=== PATIENT | male | born 1945 | race Caucasian/White ===

== ENCOUNTER 2017-10-03 20:01 | Inpatient (IN) ==
[2017-10-03 20:27] LABS: Microscopic, Urine URINE MICROSCOPIC (MICROSCOPIC)
[2017-10-03 20:28] LABS: Appearance,Urine CLEAR (Clear); Bilirubin,Urine Negative (Negative); Blood, Urine 3+ (Negative); Color,Urine YELLOW (Yellow); Glucose,Urine (UA) Negative (Negative); Ketones,Urine Negative (Negative); Leukocyte Esterase,Urine Negative (Negative); Protein,Urine Negative (Negative); Urobilinogen,Urine 0.2 EU/dl (0.2)
[2017-10-03 20:31] LABS: Basophils % 0.3 % (0.1-2.0); Eosinophils # 0.2 K/mm3 (0.0-0.4); Eosinophils % 2.2 % (0.1-12.0); Hematocrit 39.8 % (42.0-52.0); Hemoglobin 12.6 g/dL (14.1-18.0); Lymphocytes # 1.5 K/mm3 (0.7-4.5); Lymphocytes % 18.5 K/mm3 (10-50); Mean Corpuscular HGB Conc 31.5 g/dL (31.8-35.4); Mean Corpuscular Hemoglobin 31.1 pg (27.0-31.2); Mean Corpuscular Volume 98.7 fl (80-94); Mean Platelet Volume 7.2 fl (7.4-10.4); Monocytes # 0.3 K/mm3 (0.1-1.0); Monocytes % 3.8 % (1.7-9.3); Neutrophils # 6.2 K/mm3 (1.8-7.8); Neutrophils % 75.2 % (37.0-80.0); Platelet Count 260 K/mm3 (142-424); Red Blood Count 4.04 M/mm3 (4.60-6.20); Red Cell Distribution Width 13.8 % (11.5-17.5); White Blood Count 8.2 K/mm3 (4.8-10.8)
[2017-10-03 20:42] LABS: Albumin Level 3.4 gm/dL (3.4-5.0); Albumin/Globulin Ratio 1.1 (1.1-1.8); Anion Gap 13.8 mEq/L (5-15); Bilirubin,Total 0.3 mg/dL (0.2-1.0); Calcium 7.8 mg/dL (8.5-10.1); Globulin 3.1 gm/dl (1.3-3.2); Potassium 3.8 mmoL/L (3.5-5.1); Total Protein,Serum 6.5 gm/dL (6.4-8.2)
[2017-10-03 20:44] LABS: Amphetamine/Metha Screen,Urine Negative ng/mL (<1000); Barbiturates Screen,Urine Negative ng/mL (<200); Benzodiazepines Screen,Urine Negative ng/mL (<200); Cannabinoid Screen,Urine Negative ng/mL (<50); Cocaine Screen,Urine Negative ng/mL (<300); Methadone Screen,Urine Negative ng/mL (<300); Opiate Screen,Urine Negative ng/mL (<300); Phencyclidine Screen,Urine Negative ng/mL (<25)
[2017-10-03 20:46] LABS: Bacteria,Urine Trace /lpf
[2017-10-03 21:27] LABS: INR 0.93 (0.9-1.1); Prothrombin Time 9.6 seconds (9.4-11.8)
--- NOTE | 2017-10-03 21:47 | Emergency Department Note ---
ED Disposition Clinical Impression: RBBB (right bundle branch block with left anterior fascicular block), Hyponatremia Hip fracture Qualifiers: Encounter type: initial encounter Fracture type: closed Laterality: right Qualified Code(s): S72.001A - Fracture of unspecified part of neck of right femur, initial encounter for closed fracture Alcohol intoxication Qualifiers: Complication of substance-induced condition: uncomplicated Qualified Code(s): F10.920 - Alcohol use, unspecified with intoxication, uncomplicated Disposition: Admitted As Inpatient Condition on Discharge: Good - Critical Care Critical Care Time: No Attestation: On 10/03/17, the high probability of a clinically significant, sudden or life threatening deterioration of the following system(s) required my full and direct attention, intervention and personal management. The time I documented below is in addition to time spent performing reported procedures but includes the following listed in this critical care notation. Medical Decision Making - Medical Records Medical records reviewed: Yes: I reviewed the patient's medical records. - [place] Inquiry Pt receiving controlled substance: No Vital Signs: 10/03/17 20:01 10/03/17 21:18 10/03/17 21:41 Temperature 98.5 F Temperature Source Oral Pulse Rate [Right Radial] 75 76 70 Respiratory Rate 20 20 18 Blood Pressure [Right Arm] 132/82 125/80 123/82 Blood Pressure Mean [Right Arm] 98 95 95 Blood Pressure Source [Right Arm] Automatic Cuff Automatic Cuff Blood Pressure Position [Right Arm] Sitting Sitting 02 Sat by Pulse Oximetry 98 95 97 Oxygen Delivery Method Room Air - Lab Data Lab results reviewed: Yes: I reviewed the patient's lab results. Lab Results 10/03/17 20:18: PT 9.6, INR 0.93 10/03/17 20:19: WBC 8.2, RBC 4.04 L, Hgb 12.6 L, Hct 39.8 L, MCV 98.7 H, MCH 31.1, MCHC 31.5 L, RDW 13.8, Plt Count 260, MPV 7.2 L, Neut % (Auto) 75.2, Lymph % (Auto) 18.5, [place] % (Auto) 3.8, Eos % (Auto) 2.2, Baso % (Auto) 0.3, Neut # (Auto) 6.2, Lymph # (Auto) 1.5, [place] # (Auto) 0.3, Eos # (Auto) 0.2, Baso # (Auto) 0.0 10/03/17 20:19: Sodium 128 L, Potassium 3.8, Chloride 96 L, Carbon Dioxide 22, Anion Gap 13.8, BUN 6 L, Creatinine 0.64 L, Estimated Creat Clear 60, Estimated GFR 122, Est GFR ( Amer) 148, Glucose 105, Calcium 7.8 L, Total Bilirubin 0.3, AST 29, ALT 30, Alkaline Phosphatase 95, Total Protein 6.5, Albumin 3.4, Globulin 3.1, Albumin/Globulin Ratio 1.1, Plasma/Serum Alcohol 205 H 10/03/17 20:19: Urine Opiates Screen Negative, Urine Methadone Screen Negative, Ur Barbituates Screen Negative, Ur Phencyclidine Scrn Negative, Ur Amphetamines Screen Negative, U Benzodiazepines Scrn Negative, Urine Cocaine Screen Negative , U Marijuana (THC) Screen Negative 10/03/17 20:23: Urine Color Yellow, Urine Appearance Clear, Urine pH 6.0, Ur Specific [place] 1.010, Urine Protein Negative, Urine Glucose (UA) Negative, Urine Ketones Negative, Urine Blood 3+, Urine Nitrate Negative, Urine Bilirubin Negative, Urine Urobilinogen 0.2, Ur Leukocyte Esterase Negative, Urine RBC 10- 20, Urine Bacteria Trace Result diagrams: 10/03/17 20:19 10/03/17 20:19 Orders (Tests/Meds): ED MEDICATIONS Generic Name Dose Route Start Last Admin Trade Name Freq PRN Reason Stop Dose Admin Multivitamins 10 ml/ Thiamine 1,015 mls @ 150 mls/hr 10/03/17 22:00 HCl 100 mg/ Magnesium Sulfate IV 10/04/17 04:45 2 gm/ Lactated Ringer's .[id number] LACHELLE Multivitamins 10 ml/ Thiamine 1,015 mls @ 125 mls/hr 10/04/17 09:00 HCl 100 mg/ Magnesium Sulfate IV 11/03/17 08:59 2 gm/ Lactated Ringer's DAILY LACHELLE Discontinued Medications Generic Name Dose Route Start Last Admin Trade Name Freq PRN Reason Stop Dose Admin Folic Acid 1 mg 10/03/17 21:54 Folic Acid 1mg Tablet PO 10/03/17 21:55 ONCE ONE Sodium Chloride 1,000 mls @ 999 mls/hr 10/03/17 20:15 10/03/17 20:25 Sod Chlor 0.9% 1000ml Bag IV 10/03/17 21:15 999 mls/hr .Q1H1M LACHELLE Administration Morphine Sulfate 4 mg 10/03/17 21:50 10/03/17 21:52 Morphine 4mg/Ml Syringe IV 10/03/17 21:51 4 mg ONCE ONE Administration Ondansetron HCl 4 mg 10/03/17 21:50 10/03/17 21:52 Zofran 4mg/2ml Vial IV 10/03/17 21:51 4 mg ONCE ONE Administration ORDERS Category Date Time Status CT cervical spine wo con Stat Cat Scan 10/03/17 20:[address] head/brain wo con Stat Cat Scan 10/03/17 20:08 Taken Femur XR right 2 views [XR femur RT 2V] Stat Exams 10/03/17 21:50 Ordered XR chest AP Stat Exams 10/03/17 20:09 Taken XR hip RT 2-3V w/pelvis Stat Exams 10/03/17 20:09 Taken - Radiology Data #1 Image(s): Chest, Pelvis Image Reviewed: Yes I reviewed the patient's radiology image Preliminary Findings: Abnormal (hip fx /copd) - CT Data CT Scan: Head, C-Spine Time Received: 21:[address] Reviewed: Yes: I have viewed the radiologist's interpretation Preliminary Findings: Abnormal, No Fracture Seen - ECG Data Tracing #1 I reviewed this ECG and interpreted as documented below: Normal Sinus Rhythm: Yes Ischemic changes: non-specific ST-T wave changes Conduction abnormalities present: LAFB, RBBB ECG compared to prior tracings: there are no prior tracings available for comparison - Physician Consults Physician Consulted: aristeo Reason -: Pt condition Additional Consult: debbi Reason -: Admission Fall HPI - General Chief Complaint: Fall Stated Complaint: FALL Time Seen by Provider: 10/03/17 21:42 Mode of Arrival: EMS Source of Information: Patient, Relative, EMS, Medical Record Limitations: No Limitations Description of Symptoms (Recalled from ER Triage Doc. by RN): RIGHT HIP PAIN AFTER FALL WHILE WALKING. -LOC, -NECK OR BACK PAIN. +ETOH - History of Present Illness HPI Narrative: pt with trip injury and fall with injury rt hip - pt with etoh abuse - he denied any medical problems - MD complaint: fall Onset (ago): hour(s) Fall from: standing Place fall occurred: home Loss of consciousness: none Symptoms prior to fall: none Context: alcohol use Location of injury: head, neck Location of injury - extremities: Right: thigh Severity: moderate Associated symptoms (after fall): unable to walk - Related Data Home Medications Medication Instructions Recorded Confirmed No Known Home Medications 10/03/17 10/03/17 Allergies Allergy/AdvReac Type Severity Reaction Status Date / Time No Known Allergies Allergy Verified 10/03/17 20:08 [facility] History I have reviewed the patient's past medical history: Yes Medical History: Denies:: Cancer, Diabetes Mellitus Type 1, Diabetes Mellitus Type 2, MRSA Amputation: No Fractures: No - Social History Smoking Status: Current every day smoker Alcohol Intake: current Alcohol Intake Frequency:: 3 or more drinks per day - Psychiatric History Expresses thoughts of harming self/others: None Suicide Plan Description: No Plan ROS Obtained: Yes All systems reviewed & no additional complaints - Constitutional Constitutional: Denies fever(s) - Eyes Eyes: Denies change in vision - ENT Ears, Nose, Mouth, and Throat: Denies sore throat - Cardiovascular Cardiovascular: Denies chest pain at rest - Respiratory Respiratory: No cough - Gastrointestinal Gastrointestingal: Denies: abdominal pain - Genitourinary Male Genitourinary: Denies hematuria - Musculoskeletal Musculoskeletal: Reports joint pain, Reports limited range of motion - Integumentary/Breasts Skin/Breast: Denies rash - Neurologic Neurologic: Denies headache(s), Denies seizure-like activity Physical Exam - General General appearance: in no apparent distress - Head Head exam: normocephalic - Eye Eye exam: Present: PERRL, EOMI - ENT ENT exam: Present: mucous membranes dry - Neck Neck exam: Present: trachea midline - Respiratory Respiratory exam: Present: prolonged expiratory phase. Absent: respiratory distress - Cardiovascular Cardiovascular exam: Present: regular rate, systolic murmur, +S4 - Abdominal Exam Abdominal exam: Present: soft - Expanded Lower Extremity Exam Right Hip/Pelvis exam: Present: tenderness, pelvis stable, external rotation, shortening of leg, pain on hip/pelvis palpation, hip pain on leg movement - Neurological Exam Neurological exam: Present: alert, oriented X3, CN II-XII intact - Psychiatric Psychiatric exam: Present: normal affect - Skin Skin exam: Absent: rash
[2017-10-04 04:22] LABS: Basophils % 0.2 % (0.1-2.0); Eosinophils # 0.1 K/mm3 (0.0-0.4); Eosinophils % 0.8 % (0.1-12.0); Hematocrit 35.3 % (42.0-52.0); Lymphocytes # 0.9 K/mm3 (0.7-4.5); Lymphocytes % 11.7 K/mm3 (10-50); Mean Corpuscular HGB Conc 31.9 g/dL (31.8-35.4); Mean Corpuscular Hemoglobin 31.8 pg (27.0-31.2); Mean Corpuscular Volume 99.5 fl (80-94); Mean Platelet Volume 7.1 fl (7.4-10.4); Monocytes # 0.3 K/mm3 (0.1-1.0); Monocytes % 4.1 % (1.7-9.3); Neutrophils # 6.5 K/mm3 (1.8-7.8); Neutrophils % 83.2 % (37.0-80.0); Platelet Count 190 K/mm3 (142-424); Red Blood Count 3.55 M/mm3 (4.60-6.20); Red Cell Distribution Width 13.7 % (11.5-17.5); White Blood Count 7.8 K/mm3 (4.8-10.8)
[2017-10-04 04:27] LABS: Anion Gap 10.9 mEq/L (5-15); Calcium 7.6 mg/dL (8.5-10.1); Phosphorous 2.9 mg/dL (2.4-4.9); Potassium 3.9 mmoL/L (3.5-5.1)
[2017-10-04 04:43] LABS: Hemoglobin 11.4 g/dL (14.1-18.0)
--- NOTE | 2017-10-04 07:42 | Pharmacy Consult Notes ---
[facility] Pharmacy VTE Monitoring - Patient Demographics Admission date: 10/03/17 Report Date: 10/04/17 Time: 07:42 Allergies/Adverse Reactions: Patient Allergies No Known Allergies Allergy (Verified 10/03/17 20:08) Height: 1.8 m Weight: 65.884 kg Patient Problems: Current Active Problems Hip fracture (Acute) RBBB (right bundle branch block with left anterior fascicular block) (Acute) Alcohol intoxication (Acute) Hyponatremia (Acute) - VTE Risk Labs: VTE Related Lab Results Hgb 11.4 g/dL (14.1-18.0) L 10/04/17 04:10 Hct 35.3 % (42.0-52.0) L 10/04/17 04:10 Plt Count 190 K/mm3 (142-424) D 10/04/17 04:10 PT 9.6 seconds (9.4-11.8) 10/03/17 20:18 INR 0.93 (0.9-1.1) 10/03/17 20:18 BUN 4 mg/dL (7-18) L D 10/04/17 04:10 Creatinine 0.52 mg/dL (0.70-1.30) L 10/04/17 04:10 Estimated Creat Clear 60 mL/min (0-300) 10/04/17 04:10 Was VTE Risk Assessment Performed: Yes VTE Score: 6 VTE Risk Level: Moderate Risk - Prophylaxis VTE Prophylaxis Ordered?: Yes Types of VTE Prophylaxis: TEDS Knee High Location of Applied Device: Bilateral Lower Extremeties - VTE Diagnosis Confirmed Treatment or plan recommended: Continue Current Treatment
--- NOTE | 2017-10-04 07:57 | Consult Report ---
History of Present Illness Consult date: 10/04/17 Requesting physician: Crystal Meeks Consult reason: pre-op evaluation Chief complaint: Hip Fx, Abnormal EKG (RBBB, LAFB) Additional Medical History:: 1. History of bleeding ulcer secondary to ETOH use A. s/p surgery with appendectomy, cholecystectomy, partial pancreatectomy and partial intestine removal 2. Tobacco use, for 65 yrs 3. Daily ETOH use of about 12 beers daily History of present illness: 72-year-old white male admitted after tripping and falling with pain in his hip. Patient found to have hip fracture and admitted for further evaluation and treatment. Patient denies any history of cardiac issues including myocardial infarction, syncope or near syncope. EKG shows sinus rhythm with right bundle branch block and left anterior hemiblock. Cardiology consulted for preop evaluation. Patient does have extensive history of tobacco and alcohol use. He denies history of diabetes, hypertension or hyperlipidemia. His father had heart disease in his late 70s early 80s. Patient relates recent cataract surgery without complications. [facility] History Medical History: Denies:: Cancer, Diabetes Mellitus Type 1, Diabetes Mellitus Type 2, MRSA Other Medical History: Reports: Cataracts, Sinus Problems Other Surgeries: Yes: Other (sx to pancreas, intestines) Amputation: No Fractures: No - *Social History Educational Level: Completed High School Smoking Status: Current every day smoker Tobacco Type: cigarettes Alcohol Intake: current Alcohol Intake Frequency:: 3 or more drinks per day Occupational Status: retired Housing: house Household Members: none - Psychiatric History Expresses thoughts of harming self/others: None Suicide Plan Description: No Plan *Family Hx:: Coronary Artery Disease, Heart Attack, Hyperlipidemia, Hypertension , Kidney Disease Meds Home Medications Medication Instructions Recorded Confirmed Type No Known Home Medications 10/03/17 10/03/17 History Allergies Allergy/AdvReac Type Severity Reaction Status Date / Time No Known Allergies Allergy Verified 10/03/17 20:08 Review of Systems - *Cardiovascular Denies chest pain, Denies shortness of breath with activity - *Respiratory Denies shortness of breath with activity - *Gastrointestinal Denies abdominal pain, Denies loose stools, Denies black, tarry stools - *Genitourinary Denies difficulty urinating - *Musculoskeletal Denies abnormal walking - *Neurologic Denies headache(s), Denies seizure-like activity Exam Vital signs and Labs for Last 24 Hours: Temp Pulse Resp BP Pulse Ox 98.2 F 71 20 135/71 94 L 10/04/17 07:48 10/04/17 07:48 10/04/17 07:48 10/04/17 07:48 10/04/17 07:48 Laboratory Results - last 24 hr 10/03/17 20:18: PT 9.6, INR 0.93 10/03/17 20:19: WBC 8.2, RBC 4.04 L, Hgb 12.6 L, Hct 39.8 L, MCV 98.7 H, MCH 31.1, MCHC 31.5 L, RDW 13.8, Plt Count 260, MPV 7.2 L, Neut % (Auto) 75.2, Lymph % (Auto) 18.5, [place] % (Auto) 3.8, Eos % (Auto) 2.2, Baso % (Auto) 0.3, Neut # (Auto) 6.2, Lymph # (Auto) 1.5, [place] # (Auto) 0.3, Eos # (Auto) 0.2, Baso # (Auto) 0.0 10/03/17 20:19: Sodium 128 L, Potassium 3.8, Chloride 96 L, Carbon Dioxide 22, Anion Gap 13.8, BUN 6 L, Creatinine 0.64 L, Estimated Creat Clear 60, Estimated GFR 122, Est GFR ( Amer) 148, Glucose 105, Calcium 7.8 L, Total Bilirubin 0.3, AST 29, ALT 30, Alkaline Phosphatase 95, Total Protein 6.5, Albumin 3.4, Globulin 3.1, Albumin/Globulin Ratio 1.1, Plasma/Serum Alcohol 205 H 10/03/17 20:19: Urine Opiates Screen Negative, Urine Methadone Screen Negative, Ur Barbituates Screen Negative, Ur Phencyclidine Scrn Negative, Ur Amphetamines Screen Negative, U Benzodiazepines Scrn Negative, Urine Cocaine Screen Negative , U Marijuana (THC) Screen Negative 10/03/17 20:23: Urine Color Yellow, Urine Appearance Clear, Urine pH 6.0, Ur Specific [place] 1.010, Urine Protein Negative, Urine Glucose (UA) Negative, Urine Ketones Negative, Urine Blood 3+, Urine Nitrate Negative, Urine Bilirubin Negative, Urine Urobilinogen 0.2, Ur Leukocyte Esterase Negative, Urine RBC 10- 20, Urine Bacteria Trace 10/03/17 22:40: Troponin I < 0.02 10/04/17 01:00: Troponin I < 0.02 10/04/17 04:10: Troponin I < 0.02 10/04/17 04:10: WBC 7.8, RBC 3.55 L, Hgb 11.4 L, Hct 35.3 L, MCV 99.5 H, MCH 31.8 H, MCHC 31.9, RDW 13.7, Plt Count 190 D, MPV 7.1 L, Neut % (Auto) 83.2 H, Lymph % (Auto) 11.7, [place] % (Auto) 4.1, Eos % (Auto) 0.8, Baso % (Auto) 0.2, Neut # (Auto) 6.5, Lymph # (Auto) 0.9, [place] # (Auto) 0.3, Eos # (Auto) 0.1, Baso # (Auto) 0.0 10/04/17 04:10: Sodium 132 L, Potassium 3.9, Chloride 100, Carbon Dioxide 25, Anion Gap 10.9, BUN 4 L D, Creatinine 0.52 L, Estimated Creat Clear 60, Estimated GFR 155, Est GFR ( Amer) 188 D, Glucose 104, Calcium 7.6 L, Phosphorus 2.9, Magnesium 2.1 I & O for Last 24 hours: Intake & Output 10/01/17 10/02/17 10/03/17 10/04/17 11:59 11:59 11:59 11:59 Intake Total 1000 / 1000 Output Total 2700 / 2700 Balance -1700 / -1700 Weight 145 lb 4 oz - *Routine Neck Exam Absent: JVD, carotid bruit - *Routine Respiratory Exam Present: CTA bilaterally - *Routine Cardiovascular Exam Present: RRR. Absent: murmur Comments: Distant heart sounds due to chest shape. - *Routine Abdominal Exam Absent: tenderness - *Routine Extremities Exam Absent: edema - *Routine Neurological Exam Present: alert, oriented X3, moving all extremities Assessment and Plan (1) Hip fracture Current visit: Yes Status: Acute Qualifiers: Encounter type: initial encounter Fracture type: closed Laterality: right Qualified Code(s): S72.001A - Fracture of unspecified part of neck of right femur, initial encounter for closed fracture Category: Medical Code(s): S72.009A - Fracture of unspecified part of neck of unspecified femur, initial encounter for closed fracture (2) RBBB (right bundle branch block with left anterior fascicular block) Current visit: Yes Status: Acute Category: Medical Code(s): I45.2 - Bifascicular block (3) Tobacco use disorder, continuous Current visit: Yes Status: Acute Category: Medical Code(s): F17.209 - Nicotine dependence, unspecified, with unspecified nicotine-induced disorders (4) Alcohol use disorder Current visit: Yes Status: Acute Category: Medical (5) Alcohol intoxication Current visit: Yes Status: Acute Qualifiers: Complication of substance-induced condition: uncomplicated Qualified Code(s ): F10.920 - Alcohol use, unspecified with intoxication, uncomplicated Category: Medical Code(s): F10.929 - Alcohol use, unspecified with intoxication, unspecified (6) Hyponatremia Current visit: Yes Status: Acute Category: Medical Code(s): E87.1 - Hypo- osmolality and hyponatremia - Assessment and plan all Dx Assessment and Plan for all problems:: 1. Echocardiogram shows preserved ejection fraction at greater than 50%. 2. Patient is a low and acceptable risk to proceed with surgery for hip fracture. 3. Would recommend perioperative aspirin, low-dose beta-samantha and proton pump inhibitor due to history of peptic ulcer disease. 4. Discussed with Dr. Pendleton.
--- NOTE | 2017-10-04 08:45 | History & Physical Report ---
*Admission Date: 10/03/17 *Chief complaint: Right hip pain *History of present illness: Mr. James is a 72 year old male with a long-standing history of tobacco and alcohol usage who presented to [facility] emergency room after a fall resulting in right hip pain. He states he does not recall why he fell but may have tripped. He denies chest pain, shortness of breath, dizziness and heart palpitations. [place]. Patient has had no previous cardiac issues and has not seen a physician in a long while. He takes only a baby aspirin daily. Emergency room evaluation revealed a right hip fracture. EKG was abnormal with a right bundle branch block and a left anterior hemiblock. He was admitted for further evaluation and treatment with an orthopedic consult and cardiac consult for clearance for surgery. This a.m. his right hip hurts with movement and is otherwise sore. He denies chest pain and shortness of breath. [facility] History Medical History: Reports:: Gastrointestinal Bleed Denies:: Cancer, Diabetes Mellitus Type 1, Diabetes Mellitus Type 2, MRSA Other Medical History: Reports: Cataracts, Sinus Problems Other Surgeries: Yes: Other Amputation: No Fractures: No Comment: Abdominal surgery for a perforated ulcer years ago; right shoulder rotator cuff repair - *Social History Educational Level: Completed High School Smoking Status: Current every day smoker Tobacco Type: cigarettes # Packs/Day (cigarettes): 2 Alcohol Intake: current Alcohol Intake Frequency:: 3 or more drinks per day Occupational Status: retired Housing: house Household Members: none - Psychiatric History Expresses thoughts of harming self/others: None Suicide Plan Description: No Plan *Family Hx:: Coronary Artery Disease, Heart Attack, Hyperlipidemia, Hypertension , Kidney Disease Review of Systems - Constitutional Denies body ache(s), Denies chills, Denies fever(s), Denies weakness - ENT Denies dizziness, Denies ear pain, Denies headache(s), Denies sore throat - *Cardiovascular Denies chest pain, Denies shortness of breath, Denies leg swelling - *Respiratory Reports cough, Denies chest congestion, Denies shortness of breath - *Gastrointestinal Denies abdominal pain, Denies change in bowel habits, Denies change in stools, Denies constipation, Denies heartburn, Denies heartburn, Denies vomiting blood, Denies nausea, Denies vomiting - *Genitourinary Denies difficulty urinating - *Musculoskeletal Reports joint pain, Denies abnormal walking, Denies back pain, Denies body aches Comments: Right hip - *Neurologic Denies abnormal walking, Denies headache(s), Denies seizure-like activity, Denies fainting, Denies dizziness Meds Home Medications Medication Instructions Recorded Confirmed Type No Known Home Medications 10/03/17 10/03/17 History Allergies Allergy/AdvReac Type Severity Reaction Status Date / Time No Known Allergies Allergy Verified 10/03/17 20:08 Exam Vital signs and Labs for Last 24 Hours: Temp Pulse Resp BP Pulse Ox 98.2 F 71 20 135/71 94 L 10/04/17 07:48 10/04/17 07:48 10/04/17 07:48 10/04/17 07:48 10/04/17 07:48 Laboratory Results - last 24 hr 10/03/17 20:18: PT 9.6, INR 0.93 10/03/17 20:19: WBC 8.2, RBC 4.04 L, Hgb 12.6 L, Hct 39.8 L, MCV 98.7 H, MCH 31.1, MCHC 31.5 L, RDW 13.8, Plt Count 260, MPV 7.2 L, Neut % (Auto) 75.2, Lymph % (Auto) 18.5, [place] % (Auto) 3.8, Eos % (Auto) 2.2, Baso % (Auto) 0.3, Neut # (Auto) 6.2, Lymph # (Auto) 1.5, [place] # (Auto) 0.3, Eos # (Auto) 0.2, Baso # (Auto) 0.0 10/03/17 20:19: Sodium 128 L, Potassium 3.8, Chloride 96 L, Carbon Dioxide 22, Anion Gap 13.8, BUN 6 L, Creatinine 0.64 L, Estimated Creat Clear 60, Estimated GFR 122, Est GFR ( Amer) 148, Glucose 105, Calcium 7.8 L, Total Bilirubin 0.3, AST 29, ALT 30, Alkaline Phosphatase 95, Total Protein 6.5, Albumin 3.4, Globulin 3.1, Albumin/Globulin Ratio 1.1, Plasma/Serum Alcohol 205 H 10/03/17 20:19: Urine Opiates Screen Negative, Urine Methadone Screen Negative, Ur Barbituates Screen Negative, Ur Phencyclidine Scrn Negative, Ur Amphetamines Screen Negative, U Benzodiazepines Scrn Negative, Urine Cocaine Screen Negative , U Marijuana (THC) Screen Negative 10/03/17 20:23: Urine Color Yellow, Urine Appearance Clear, Urine pH 6.0, Ur Specific [place] 1.010, Urine Protein Negative, Urine Glucose (UA) Negative, Urine Ketones Negative, Urine Blood 3+, Urine Nitrate Negative, Urine Bilirubin Negative, Urine Urobilinogen 0.2, Ur Leukocyte Esterase Negative, Urine RBC 10- 20, Urine Bacteria Trace 10/03/17 22:40: Troponin I < 0.02 10/04/17 01:00: Troponin I < 0.02 10/04/17 04:10: Troponin I < 0.02 10/04/17 04:10: WBC 7.8, RBC 3.55 L, Hgb 11.4 L, Hct 35.3 L, MCV 99.5 H, MCH 31.8 H, MCHC 31.9, RDW 13.7, Plt Count 190 D, MPV 7.1 L, Neut % (Auto) 83.2 H, Lymph % (Auto) 11.7, [place] % (Auto) 4.1, Eos % (Auto) 0.8, Baso % (Auto) 0.2, Neut # (Auto) 6.5, Lymph # (Auto) 0.9, [place] # (Auto) 0.3, Eos # (Auto) 0.1, Baso # (Auto) 0.0 10/04/17 04:10: Sodium 132 L, Potassium 3.9, Chloride 100, Carbon Dioxide 25, Anion Gap 10.9, BUN 4 L D, Creatinine 0.52 L, Estimated Creat Clear 60, Estimated GFR 155, Est GFR ( Amer) 188 D, Glucose 104, Calcium 7.6 L, Phosphorus 2.9, Magnesium 2.1 I & O for Last 24 hours: Intake & Output 10/01/17 10/02/17 10/03/17 10/04/17 11:59 11:59 11:59 11:59 Intake Total 1000 / 1000 Output Total 2700 / 2700 Balance -1700 / -1700 Weight 145 lb 4 oz Radiology Reports for the Last 24 Hours: CT of the head 10/03/2017 IMPRESSION: No acute intracranial findings CT of the cervical spine 10/03/2017 with no fracture noted Chest x-ray 10/03/2017 IMPRESSION: Limited exam with increased density in the left apex with volume loss nonspecific. No definite acute finding. Follow-up recommended without artifact. Right hip x-ray 10/03/2017 IMPRESSION: Comminuted mildly displaced intertrochanteric fracture of the right hip Right femur x-ray 10/03/2017 IMPRESSION: Comminuted mildly displaced right intertrochanteric fracture of the femur - Constitutional no acute distress Comments: Lying in bed and appears comfortable. Friend at bedside - *Routine HEENT Exam Head: Present: normocephalic, atraumatic Eye: Present: PERRL, normal accommodation. Absent: conjunctival icterus, conjunctivae pink - *Routine Neck Exam Present: supple, full ROM, trachea midline. Absent: carotid bruit, lymphadenopathy, thyromegaly, tenderness Comments: Bearded - *Routine Respiratory Exam Present: CTA bilaterally (Anteriorly and posteriorly with diminished breath sounds posteriorly) - *Routine Cardiovascular Exam Present: RRR. Absent: murmur - *Routine Abdominal Exam Present: soft, normoactive bowel sounds, surgical scars. Absent: tenderness, distended, guarding - *Routine Extremities Exam Absent: edema, calf tenderness Comments: Right foot externally rotated. He can slightly reposition. - *Routine Neurological Exam Present: alert, oriented X3 H&P: Result - Labs Labs: Short CBC 10/03/17 10/04/17 Range/Units 20:19 04:10 WBC 8.2 7.8 (4.8-10.8) K/mm3 Hgb 12.6 L 11.4 L (14.1-18.0) g/dL Hct 39.8 L 35.3 L (42.0-52.0) % Plt Count 260 190 D (142-424) K/mm3 BMP 10/03/17 10/04/17 20:19 04:10 Sodium 128 L 132 L Potassium 3.8 3.9 Chloride 96 L 100 Carbon Dioxide 22 25 BUN 6 L 4 L D Creatinine 0.64 L 0.52 L Glucose 105 104 Calcium 7.8 L 7.6 L Cardiac Enzymes 10/03/17 10/04/17 10/04/17 Range/Units 22:40 01:00 04:10 Troponin I < 0.02 < 0.02 < 0.02 (0.00-0.06) ng/ml Liver Function 10/03/17 Range/Units 20:19 Total Bilirubin 0.3 (0.2-1.0) mg/dL AST 29 (15-37) U/L ALT 30 (12-78) U/L Alkaline Phosphatase 95 (46-116) U/L Albumin 3.4 (3.4-5.0) gm/dL Urine 10/03/17 Range/Units 20:23 Urine Color Yellow (Yellow) Urine Appearance Clear (Clear) Urine pH 6.0 (5.0-8.5) Ur Specific [place] 1.010 (1.005-1.030) Urine Protein Negative (Negative) Urine Glucose (UA) Negative (Negative) Assessment and Plan (1) Hip fracture Current visit: Yes Status: Acute Qualifiers: Encounter type: initial encounter Fracture type: closed Laterality: right Qualified Code(s): S72.001A - Fracture of unspecified part of neck of right femur, initial encounter for closed fracture Category: Medical Code(s): S72.009A - Fracture of unspecified part of neck of unspecified femur, initial encounter for closed fracture (2) RBBB (right bundle branch block with left anterior fascicular block) Current visit: Yes Status: Acute Category: Medical Code(s): I45.2 - Bifascicular block (3) Tobacco use disorder, continuous Current visit: Yes Status: Acute Category: Medical Code(s): F17.209 - Nicotine dependence, unspecified, with unspecified nicotine-induced disorders (4) Alcohol use disorder Current visit: Yes Status: Acute Category: Medical (5) Alcohol intoxication Current visit: Yes Status: Acute Qualifiers: Complication of substance-induced condition: uncomplicated Qualified Code(s ): F10.920 - Alcohol use, unspecified with intoxication, uncomplicated Category: Medical Code(s): F10.929 - Alcohol use, unspecified with intoxication, unspecified (6) Hyponatremia Current visit: Yes Status: Acute Category: Medical Code(s): E87.1 - Hypo- osmolality and hyponatremia - Assessment and plan all Dx Assessment and Plan for all problems:: Patient has been seen by cardiology is being completed. Orthopedic consult as well today. Patient is stable to undergo right hip surgery.
--- NOTE | 2017-10-04 11:36 | Progress Note ---
[facility] Anesthesia Checklist - Patient Identification Patient Identification: Arm Band - Structural Data Admitted From: Inpatient Planned Operative Procedure/s: right hip gamma nail Consent for Planned Operative Procedure(s) Verified: Yes Verified Documents: Surgical Consent, History and Physical - NPO Status Verified Time NPO: 00:00 - Additional verifications Anesthesia Reactions: No - Airway Assessment C-Spine Mobility Assessed: Yes (mp2) TMJ Mobility Assessed: Yes Dentition: Edentulous (upper dentures) - Neurological Assessment Level of Consciousness: Awake, Alert - Anesthesia Plan Anesthesia Risk discussed: Yes Anesthesia Plan: Verified ASA Class: III Anesthesia Type: Spinal [facility] Anesthesia HX I have reviewed the patient's past medical history: Yes Medical History: Reports:: Gastrointestinal Bleed Denies:: Cancer, Diabetes Mellitus Type 1, Diabetes Mellitus Type 2, MRSA Other Medical History: Reports: Cataracts, Sinus Problems, Other (alcholism, ~ 12 beers/day, smoker) Laterality Cases: Right: Arthroscopy Shoulder Other Surgeries: Yes: Other (sx to pancreas, intestines) Amputation: No Fractures: No *Family Hx:: Coronary Artery Disease, Heart Attack, Hyperlipidemia, Hypertension , Kidney Disease
--- NOTE | 2017-10-04 12:43 | Consult Report ---
*Admission Date: 10/03/17 *Chief complaint: Right hip pain *History of present illness: Mr. James is a 72 year old male with a long-standing history of tobacco and alcohol usage who presented to [facility] emergency room after a fall resulting in right hip pain. He states that he does not recall why he fell but may have tripped. He denies chest pain, shortness of breath, dizziness and heart palpitations. He states [place]. Patient has had no previous cardiac issues and has not seen a physician in a long while. He takes a baby aspirin daily and is not on any other medication. Evaluation in the ER including x-rays revealed a comminuted and displaced intertrochanteric fracture of the right hip. Patient was admitted for management of the same. EKG in the ER showed some abnormalities and is being worked up by cardiology for this. Today he is complaining of pain in his right hip with any attempted movements. Patient denies any dizziness, headache, chest or neck pain. He denies loss of consciousness, chest pain and shortness of breath. His family including his sister and nephew are with him in the room. Patient says he lives by himself and normally walks unaided. He drinks alcohol on a regular basis and drinks 10-12 beers a day. He is also a chronic smoker and has been smoking for 60+ years. He does not report pain anywhere else. He says he is not registered with any primary care physicians and last seen Dr. Herrera prior to his cataract surgery 4 months ago. From an orthopedic standpoint, he had open rotator cuff repair over 20 years ago which according to the patient has been unsuccessful. Review of Systems - Review of Systems Review of systems:: pertinent systems reviewed and negative unless documented below - *Neurologic Denies abnormal walking, Denies dizziness, Denies headache(s), Denies seizure- like activity, Denies fainting, Denies dizziness, Denies weakness [facility] History Medical History: Reports:: Gastrointestinal Bleed Denies:: Cancer, Diabetes Mellitus Type 1, Diabetes Mellitus Type 2, MRSA Other Medical History: Reports: Cataracts, Sinus Problems, Other (alcholism, ~ 12 beers/day, smoker) Laterality Cases: Right: Arthroscopy Shoulder Other Surgeries: Yes: Other (sx to pancreas, intestines) Amputation: No Fractures: No - *Social History Educational Level: Completed High School Smoking Status: Current every day smoker Tobacco Type: cigarettes # Packs/Day (cigarettes): 2 Alcohol Intake: current Alcohol Intake Frequency:: 3 or more drinks per day Occupational Status: retired Housing: house Household Members: none - Psychiatric History Expresses thoughts of harming self/others: None Suicide Plan Description: No Plan *Family Hx:: Coronary Artery Disease, Heart Attack, Hyperlipidemia, Hypertension , Kidney Disease Meds Home Medications Medication Instructions Recorded Confirmed Type No Known Home Medications 10/03/17 10/03/17 History Allergies Allergy/AdvReac Type Severity Reaction Status Date / Time No Known Allergies Allergy Verified 10/03/17 20:08 Exam Vital signs and Labs for Last 24 Hours: Temp Pulse Resp BP Pulse Ox 98.2 F 71 20 135/71 94 L 10/04/17 07:48 10/04/17 07:48 10/04/17 07:48 10/04/17 07:48 10/04/17 08:00 Laboratory Results - last 24 hr 10/03/17 20:18: PT 9.6, INR 0.93 10/03/17 20:19: WBC 8.2, RBC 4.04 L, Hgb 12.6 L, Hct 39.8 L, MCV 98.7 H, MCH 31.1, MCHC 31.5 L, RDW 13.8, Plt Count 260, MPV 7.2 L, Neut % (Auto) 75.2, Lymph % (Auto) 18.5, [place] % (Auto) 3.8, Eos % (Auto) 2.2, Baso % (Auto) 0.3, Neut # (Auto) 6.2, Lymph # (Auto) 1.5, [place] # (Auto) 0.3, Eos # (Auto) 0.2, Baso # (Auto) 0.0 10/03/17 20:19: Sodium 128 L, Potassium 3.8, Chloride 96 L, Carbon Dioxide 22, Anion Gap 13.8, BUN 6 L, Creatinine 0.64 L, Estimated Creat Clear 60, Estimated GFR 122, Est GFR ( Amer) 148, Glucose 105, Calcium 7.8 L, Total Bilirubin 0.3, AST 29, ALT 30, Alkaline Phosphatase 95, Total Protein 6.5, Albumin 3.4, Globulin 3.1, Albumin/Globulin Ratio 1.1, Plasma/Serum Alcohol 205 H 10/03/17 20:19: Urine Opiates Screen Negative, Urine Methadone Screen Negative, Ur Barbituates Screen Negative, Ur Phencyclidine Scrn Negative, Ur Amphetamines Screen Negative, U Benzodiazepines Scrn Negative, Urine Cocaine Screen Negative , U Marijuana (THC) Screen Negative 10/03/17 20:23: Urine Color Yellow, Urine Appearance Clear, Urine pH 6.0, Ur Specific [place] 1.010, Urine Protein Negative, Urine Glucose (UA) Negative, Urine Ketones Negative, Urine Blood 3+, Urine Nitrate Negative, Urine Bilirubin Negative, Urine Urobilinogen 0.2, Ur Leukocyte Esterase Negative, Urine RBC 10- 20, Urine Bacteria Trace 10/03/17 22:40: Troponin I < 0.02 10/04/17 01:00: Troponin I < 0.02 10/04/17 04:10: Troponin I < 0.02 10/04/17 04:10: WBC 7.8, RBC 3.55 L, Hgb 11.4 L, Hct 35.3 L, MCV 99.5 H, MCH 31.8 H, MCHC 31.9, RDW 13.7, Plt Count 190 D, MPV 7.1 L, Neut % (Auto) 83.2 H, Lymph % (Auto) 11.7, [place] % (Auto) 4.1, Eos % (Auto) 0.8, Baso % (Auto) 0.2, Neut # (Auto) 6.5, Lymph # (Auto) 0.9, [place] # (Auto) 0.3, Eos # (Auto) 0.1, Baso # (Auto) 0.0 10/04/17 04:10: Sodium 132 L, Potassium 3.9, Chloride 100, Carbon Dioxide 25, Anion Gap 10.9, BUN 4 L D, Creatinine 0.52 L, Estimated Creat Clear 60, Estimated GFR 155, Est GFR ( Amer) 188 D, Glucose 104, Calcium 7.6 L, Phosphorus 2.9, Magnesium 2.1 10/04/17 11:43: Blood Type B Positive, Antibody Screen Negative I & O for Last 24 hours: Intake & Output 10/02/17 10/03/17 10/04/17 10/05/17 11:59 11:59 11:59 11:59 Intake Total 1000 / 1000 Output Total 2700 / 2700 Balance -1700 / -1700 Weight 145 lb 4 oz Narrative: General Appearance: normal appearance, thin built. No acute distress ENT: mucous membranes moist Neck: normal inspection, non-tender, supple, full range of motion, trachea central Respiratory: trachea midline, chest symmetrical, non tender chest. No respiratory distress. Normal breath sounds bilaterally, lungs clear to auscultation. Cardiovascular: regular rate/rhythm, S1, S2 heard, no gallop, no JVD, no murmur , no rub, normal peripheral pulses, no peripheral edema. Gastrointestinal: Abdomen is soft and nontender, normal bowel sounds over all 4 quadrants, no organomegaly, no CVA tenderness. Neurologic: alert, oriented x 3; cranial nerves II-12: intact; no focal deficits Mental status: Appropriate mood/affect for the situation Skin: Superficial abrasion over the back of the left elbow, normal color, warm/ dry On examination of the lower extremities, the RIGHT leg is shortened and the foot is externally rotated. On examination of the RIGHT hip the skin is normal. No rashes or lesions noted. He is tender over the RIGHT hip. Any attempted movements of the RIGHT hip are painful. Thigh and calf are soft and nontender. Dorsalis pedis and posterior tibial pulses are palpable 2+ bilaterally. Sensation is grossly intact. Patient has good range of foot, ankle and toe movements. Examination of left hip/left lower extremities within normal limits. On examination of his left elbow, there is a superficial abrasion over the posterior aspect. There is diffuse soft tissue swelling. No bony tenderness or crepitation on palpation. He has full range of pain-free movements of the left elbow. Elbow joint is ligamentously stable. No other injuries noted. Imaging: X-rays of pelvis AP view, RIGHT hip AP and lateral views and RIGHT femur AP and lateral views are showing a comminuted, displaced, unstable intertrochanteric fracture of the RIGHT proximal femur. Hip joint is fairly well -preserved. The distal femur appears normal except for a degree of osteopenia. No evidence of any metastatic lesions noted. Results - Labs Result Diagrams: 10/04/17 04:10 10/04/17 04:10 Labs: Abnormal lab results 10/03/17 10/03/17 10/04/17 Range/Units 20:19 20:19 04:10 RBC 4.04 L 3.55 L (4.60-6.20) M/mm3 Hgb 12.6 L 11.4 L (14.1-18.0) g/dL Hct 39.8 L 35.3 L (42.0-52.0) % MCV 98.7 H 99.5 H (80-94) fl MCH 31.8 H (27.0-31.2) pg MCHC 31.5 L (31.8-35.4) g/dL MPV 7.2 L 7.1 L (7.4-10.4) fl Neut % (Auto) 83.2 H (37.0-80.0) % Sodium 128 L (136-145) mmol/L Chloride 96 L (98-107) mmol/L BUN 6 L (7-18) mg/dL Creatinine 0.64 L (0.70-1.30) mg/dL Calcium 7.8 L (8.5-10.1) mg/dL Plasma/Serum Alcohol 205 H (0-99) mg/dL 10/04/17 Range/Units 04:10 RBC (4.60-6.20) M/mm3 Hgb (14.1-18.0) g/dL Hct (42.0-52.0) % MCV (80-94) fl MCH (27.0-31.2) pg MCHC (31.8-35.4) g/dL MPV (7.4-10.4) fl Neut % (Auto) (37.0-80.0) % Sodium 132 L (136-145) mmol/L Chloride (98-107) mmol/L BUN 4 L D (7-18) mg/dL Creatinine 0.52 L (0.70-1.30) mg/dL Calcium 7.6 L (8.5-10.1) mg/dL Plasma/Serum Alcohol (0-99) mg/dL H & H 18 10/04/17 Range/Units 20:19 04:10 Hgb 12.6 L 11.4 L (14.1-18.0) g/dL Hct 39.8 L 35.3 L (42.0-52.0) % Coagulation 10/03/17 Range/Units 20:18 INR 0.93 (0.9-1.1) All other labs normal. Assessment and Plan (1) Hip fracture Current visit: Yes Status: Acute Qualifiers: Encounter type: initial encounter Fracture type: closed Laterality: right Qualified Code(s): S72.001A - Fracture of unspecified part of neck of right femur, initial encounter for closed fracture Category: Medical Code(s): S72.009A - Fracture of unspecified part of neck of unspecified femur, initial encounter for closed fracture I reviewed the clinical and imaging findings with the patient and his sister and nephew who were with him in the room. I have discussed the diagnosis and management options in detail including both nonsurgical and surgical. I have recommended surgical remediation in the form of a femoral nailing (cephalo- medullary nailing). I explained the procedure, risks and benefits, alternatives and the expected postoperative course and outcome. I explained to the patient and his family the type of the fracture and the proposed surgical procedure using copies of the x-rays, pictures from the Internet and drawings. The complications discussed include but are not limited to infection, bleeding, injury to nerves and blood vessels, DVT, PE, screw cut-out/implant failure, loss of fixation, nonunion, malunion/malrotation, osteonecrosis of the femoral head, femoral shaft fracture, painful hardware, heterotopic ossification, stiffness, weakness, incomplete relief of pain, incomplete return of function or motion and the likely need for further surgery in future, and anesthetic/ medical complications including heart attack, stroke, transfusion reaction or . We discussed how any of these events can be devastating. I've explained that the patient is at a significant surgical risk due to his age, alcoholism, chronic smoking and other medical issues, and fragility of the bone. Family and patient seemed to understand and accept these risks. We have discussed nonsurgical alternatives as well. The nonoperative management would essentially consist of prolonged bed rest and traction (skeletal/skin) in bed and pain medication and has exceptionally poor outcome. This could result in nonunion and malunion of the fracture and almost certainly, the patient has a very high risk of decubitus ulcers, UTI, respiratory tract infections, DVT/PE and other complications from being bedridden. I have explained to them that the standard of care for this sort of injuries is surgical throughout the country unless the patient is very ill for surgical management. We also discussed the postoperative course including the rehab and physical therapy required. Patient was fairly active and living by himself prior to the injury but may need short-term placement in a [place] [facility] facility for rehab after surgery. All their questions were answered and they verbalized a good understanding. Patient was cleared for surgery by Dr. Meeks's team as well as Dr. Pendleton's team with appropriate risk stratification. Well also obtain a preoperative anesthetic evaluation. The limb was marked appropriately and initialed by me. I have recommended- Type and screen Continue nothing by mouth Continue IV fluids Analgesia as needed Consent patient for a cephalo-medullary nailing RIGHT hip. Order 2 g of IV Ancef for preoperative prophylaxis to start half an hour before surgery X-ray of left elbow to rule out any acute fracture I am planning to take the patient for surgery at the earliest opportunity today. Continue medical management as per Dr. Meeks. Thank you for the opportunity to take part in the care of this very pleasant patient. (2) RBBB (right bundle branch block with left anterior fascicular block) Current visit: Yes Status: Acute Category: Medical Code(s): I45.2 - Bifascicular block (3) Tobacco use disorder, continuous Current visit: Yes Status: Acute Category: Medical Code(s): F17.209 - Nicotine dependence, unspecified, with unspecified nicotine-induced disorders (4) Alcohol use disorder Current visit: Yes Status: Acute Category: Medical (5) Alcohol intoxication Current visit: Yes Status: Acute Qualifiers: Complication of substance-induced condition: uncomplicated Qualified Code(s ): F10.920 - Alcohol use, unspecified with intoxication, uncomplicated Category: Medical Code(s): F10.929 - Alcohol use, unspecified with intoxication, unspecified (6) Hyponatremia Current visit: Yes Status: Acute Category: Medical Code(s): E87.1 - Hypo- osmolality and hyponatremia
--- NOTE | 2017-10-04 16:01 | Progress Note ---
[facility] Anesthesia Record Part I Intake, IV Amount: 1,000 Estimated blood loss (mL): 150 Urine output (mL): 200 Blood Products used (#): none Blood Pressure: 92/58 SaO2: 93 Pulse Rate: 57 Respiratory Rate: 18 Temperature: 98.6 F Patient is:: Awake, Nasal O2, Stable Stable to PACU at:: 15:55
--- NOTE | 2017-10-04 16:02 | Progress Note ---
[facility] Anesthesia Record Part II Discharge Time: 16:25 Destination: Medical Surgical Department PACU nurse assessment reviewed?: Yes Patient Condition:: Good Anesthesia Complications:: None
--- NOTE | 2017-10-04 16:15 | Operative Note ---
Date of procedure: 10/04/17 Pre-op Diagnosis:: Closed, displaced, comminuted, unstable intertrochanteric fracture, right femur Post-op Diagnosis:: Closed, displaced, comminuted, unstable intertrochanteric fracture, right femur Procedure performed:: Closed reduction and cephalo-medullary ( Gamma, Raven) nailing, right femur Surgeon:: Shantanu Guerrero MD Design Painter(s):: Kristin Ribera PRODUCTION CONTROLLER:: Warner Guevara Anesthesia: spinal Estimated blood loss (mL): 150 Clinical Note:: Patient is a 72-year-old male who tripped and fell sustaining an injury to her RIGHT hip on 10/03/2017. Following evaluation in the emergency room where x-ray showed a displaced and comminuted, unstable intertrochanteric fracture of his RIGHT proximal femur, he was admitted for further management. After evaluating the patient, I discussed the diagnosis and management options in detail including nonsurgical and surgical, with the patient and his family. Prior to the injury patient was active and mobile independently and was living by himself. After a detailed discussion with the patient and his family a decision was made to fix the fracture internally with a cephalo-medullary nail. I discussed the procedure, risks and benefits, postoperative recovery and rehabilitation and the expected outcomes. The complications discussed include but are not limited to DVT, PE, infection, bleeding, injury to nerves and blood vessels, screw cut-out/implant failure, loss of fixation, nonunion, malunion/ malrotation, osteonecrosis of the femoral head, femoral shaft fracture, painful hardware, heterotopic ossification, stiffness, weakness, incomplete relief of pain, incomplete return of function or motion and the likely need for further surgery in future, and anesthetic/medical complications including heart attack, stroke, transfusion reaction or . The patient and his family wished to proceed with the surgical management. Consent form was reviewed and signed by me. The limb was appropriately marked and initialed by me. Following appropriate preoperative workup and medical and cardiac clearance, he was brought to the operating room for surgery. The surgery is indicated to reduce and stabilize the fracture, relieve pain and improve function. Operative findings:: Comminuted, displaced and unstable intertrochanteric fracture RIGHT proximal femur as noted on the preoperative x-rays. The fracture was well reduced with closed manipulation prior to fixation. Bone quality was good. Operative note:: Following appropriate preoperative workup and medical/cardiac clearance, patient was brought to the operating room and a spinal anesthesia was administered. Patient was then positioned supine on the fracture table and all the bony prominences were appropriately padded. The RIGHT foot was secured in the footplate and the footplate was attached to the fracture table. The LEFT leg was placed out of the way in a leg andrews. Under fluoroscopic guidance the fracture was reduced by traction and satisfactory reduction was obtained. The reduction was confirmed on both AP and lateral views. The RIGHT hip and thigh were then prepped and draped in the usual sterile fashion. Administration of prophylactic antibiotics was confirmed with the anesthetic team (2 g of IV Ancef was administered). A preprocedure timeout was performed as per the hospital protocol. After marking the level of the greater trochanter on the skin under fluoroscopy, a skin incision was made proximal to the greater trochanter in line with the femoral shaft. The dissection was then carried through the subcutaneous tissue. The tensor fascia muscle was split in line with the fibers. This provided access to the tip of the greater trochanter. Under fluoroscopic guidance a guidewire was placed at the tip of the greater trochanter, the position was confirmed on both fluoroscopic views and advanced into the proximal femur. The proximal segment was then reamed over the guidewire and the guidewire was exchanged for a ball-tipped guidewire which was advanced into the distal femur. The position of the guidewire was confirmed in both AP and lateral views. Then sequential reaming was performed over the guidewire up to 14.5 mm reamer. The required nail length was measured. A 125 degree angle, 13 mm diameter, long (420 mm) RIGHT [place] Gamma 3 nail was selected. The selected nail was attached to the proximal jig and the nail was then inserted into the femur under fluoroscopic guidance. After seating the nail to the appropriate level, I proceeded to introduce the lag screw. We used the [employer] computer navigation system for placement of the lag screw. The lag screw sheath assembly was placed through the appropriate hole in the jig and locked in place. Then a 1 inch skin incision was made over the lateral thigh at this level. The incision was deepened through soft tissue and the fascia aiden and the muscle was split. The trocar was removed and a guide pin was placed into the femoral head under fluoroscopic control. After confirming satisfactory placement of the guidepin in both AP and lateral fluoroscopic views the length was measured. A 105 mm lag screw was then selected. Drilling was performed over the guidewire for the lag screw. The lag screw was then introduced over the guidewire and advanced to an appropriate level. The traction was reduced and fracture site compressed. The lag screw was secured in place with the set screw. The guide pin and sheath were then removed. After final seating of the lag screw the tip apex distance was 15 mm. I then proceeded to perform the distal locking through the static hole- we used the [employer] Gamma nail distal locking jig for this. After appropriately lining the drill sleeve and nail under fluoroscopic guidance, the drill sleeve was placed through the static hole and a 1 cm skin incision was made. Through the drill sleeve the 4.3 mm drill was introduced and the drill hole made for the distal locking screw. The screw length was measured and a 5 mm x 45 mm cortical bone screw was introduced through the static locking hole. The distal and proximal jigs were then removed and fluoroscopic screening was performed in both the AP and lateral views. The reduction and fixation were noted to be satisfactory and stable. Fluoroscopic images were obtained and stored digitally. The wounds were washed out with normal saline and hemostasis was obtained with the diathermy cautery. The wounds were then closed in layers with the 0 Vicryl, 2-0 Vicryl and 4-0 Monocryl subcuticular sutures, Dermabond and Steri-Strips to the skin. Sterile dressings were applied. The foot was taken out of the foot andrews and the opposite leg out of the leg andrews and placed on the table extension. The limb lengths were noted to be equal and there was no rotational malalignment. Dorsalis pedis and posterior tibial pulses were 2+ on both sides. At the end of the procedure, swab, needle and instrument counts were correct according to the scrub team. Patient was then transferred onto the bed. Patient was then transported to the PACU in a stable condition. Patient tolerated the procedure well and there were no immediate complications. Portable x-rays of the hip/ femur AP and cross-table lateral views were obtained in the PACU and were noted to be satisfactory. Postoperatively patient will receive 3 further doses of prophylactic antibiotics , DVT prophylaxis as per protocol and IV and oral analgesia as needed. Medical management as per Dr. Davis team. Patient can be mobilized on the first postoperative day with a walker, weight bearing on the RIGHT side as tolerated. Implants: [place] Gamma 3 long nailing system- 125 degree angle, 13 mm diameter, long ( 420 mm) RIGHT Raven Gamma 3 nail, 10.5 mm x 105 mm lag screw and 5 mm x 45 mm distal locking screw. (Industry customer solutions representative: Job Lemus from [facility]) Condition: stable Disposition: floor Specimens:: None Complications:: None
--- NOTE | 2017-10-04 18:52 | Cardiology Report ---
PROCEDURE: 2-D M-mode and color Doppler study INDICATIONS FOR THE TEST: Chest pain COPD Heart Murmur Tobacco Smoking+ Palpitations Fatigue Syncope Edema Hypertension Diabetes Mellitus Rheumatic Fever SOB YUAN+Obesity Hyperlipidemia Family History HD Additional History Rt hip fracture, preop clearance for hip repair/replacement, RBBB, Etho abuse PATIENT INFORMATION HEIGHT: 71 WEIGHT: 145 GENDER: Male B/P: 123/82 2-D/M-MODE INTERPRETATION: 2-D MEASUREMENTS OBSERVED VALUES IN CMS Right Ventricular Dimension (RVDd) 2.2 Interventricular Septum (Thickness)(IVsd) 0.8 Left Ventricular Internal Dimensions(LVIDd) 3.1 Left Ventricular Posterior Wall (Thickness)(LVPWd) 0.9 Aortic Root 3.7 Aortic Cusp Separation 2.3 Left Atrial Dimensions (LAD) 2.8 2D 1. Left atrium is normal size, left ventricle is normal size, there is no concentric left ventricular hypertrophy, visually estimated ejection fraction 55% with no obvious regional wall motion abnormality. 2. The right atrium and right ventricle are normal size and contractility. 3. The aortic valve is minimally thickened and fibrosed. 4. The mitral and tricuspid valve are structurally normal. 5. The pulmonic valve is poorly visualized. 6. No significant pericardial effusion noted. DOPPLER INTERROGATION: Doppler interrogation of the aortic, mitral and tricuspid valvular presence of mild mitral and tricuspid regurgitation, tricuspid and jet velocity is insufficient for calculation of the right ventricular systolic pressure. Grade 1 diastolic dysfunction seen without tissue Doppler evidence of raised left atrial pressure. CONCLUSION: 1. Normal left ventricular size, preserved left ventricular systolic function, visually estimated ejection fraction 55% with no obvious regional wall motion abnormality, grade 1 diastolic dysfunction seen without tissue Doppler evidence of raised left atrial pressure. 2. Mild mitral and tricuspid regurgitation 3. No significant pericardial effusion noted.
[2017-10-05 06:35] LABS: Basophils % 0.1 % (0.1-2.0); Eosinophils % 0.7 % (0.1-12.0); Hematocrit 30.1 % (42.0-52.0); Hemoglobin 9.8 g/dL (14.1-18.0); Lymphocytes # 0.7 K/mm3 (0.7-4.5); Mean Corpuscular HGB Conc 32.6 g/dL (31.8-35.4); Mean Corpuscular Hemoglobin 32.3 pg (27.0-31.2); Mean Platelet Volume 7.7 fl (7.4-10.4); Monocytes # 0.3 K/mm3 (0.1-1.0); Monocytes % 5.4 % (1.7-9.3); Neutrophils # 5.2 K/mm3 (1.8-7.8); Neutrophils % 82.8 % (37.0-80.0); Platelet Count 149 K/mm3 (142-424); Red Blood Count 3.04 M/mm3 (4.60-6.20); Red Cell Distribution Width 13.8 % (11.5-17.5); White Blood Count 6.3 K/mm3 (4.8-10.8)
[2017-10-05 06:45] LABS: Albumin Level 2.7 gm/dL (3.4-5.0); Anion Gap 8.2 mEq/L (5-15); Bilirubin,Total 0.4 mg/dL (0.2-1.0); Calcium 7.9 mg/dL (8.5-10.1); Globulin 2.8 gm/dl (1.3-3.2); Potassium 4.2 mmoL/L (3.5-5.1); Total Protein,Serum 5.5 gm/dL (6.4-8.2)
--- NOTE | 2017-10-05 08:17 | Progress Note ---
Internal Medicine - PN: Subj *Date: 10/05/17 *Time: 08:16 Interval history: Patient states he is feeling well this morning. He did have to have morphine last night due to the pain in his right hip. States it continues to hurt if he moves it in certain directions. He slept about 4 hours last night and was able to eat this morning. Exam Vital signs and Labs for Last 24 Hours: Temp Pulse Resp BP Pulse Ox 98.7 F 72 16 126/72 97 10/05/17 04:00 10/05/17 04:00 10/05/17 04:00 10/05/17 04:00 10/05/17 04:00 Laboratory Results - last 24 hr 10/04/17 11:43: Blood Type B Positive, Antibody Screen Negative 10/05/17 06:10: WBC 6.3, RBC 3.04 L, Hgb 9.8 L, Hct 30.1 L, MCV 99.0 H, MCH 32.3 H, MCHC 32.6, RDW 13.8, Plt Count 149, MPV 7.7, Neut % (Auto) 82.8 H, Lymph % (Auto) 11.0, [place] % (Auto) 5.4, Eos % (Auto) 0.7, Baso % (Auto) 0.1, Neut # (Auto) 5.2, Lymph # (Auto) 0.7, [place] # (Auto) 0.3, Eos # (Auto) 0.0, Baso # (Auto) 0.0 10/05/17 06:10: Sodium 133 L, Potassium 4.2, Chloride 102, Carbon Dioxide 27, Anion Gap 8.2, BUN 6 L D, Creatinine 0.56 L, Estimated Creat Clear 60, Estimated GFR 143, Est GFR ( Amer) 173, Glucose 110 H, Calcium 7.9 L, Total Bilirubin 0.4, AST 24, ALT 25, Alkaline Phosphatase 92, Total Protein 5.5 L, Albumin 2.7 L D, Globulin 2.8, Albumin/Globulin Ratio 1.0 L I & O for Last 24 hours: Intake & Output 10/02/17 10/03/17 10/04/17 10/05/17 11:59 11:59 11:59 11:59 Intake Total 1000 / 1000 1000 / 1000 Output Total 2700 / 2700 3290 / 3290 Balance -1700 / -1700 -2290 / -2290 Weight 145 lb 4 oz Microbiology Reports for the Last 24 Hours: Microbiology 10/04/17 09:35 Sputum - Expectorated Sputum Gram Stain - Final - Constitutional no acute distress - *Routine Respiratory Exam Present: CTA bilaterally - *Routine Cardiovascular Exam Present: RRR - *Routine Abdominal Exam Present: soft, normoactive bowel sounds. Absent: tenderness - *Routine Extremities Exam Absent: edema Comments: right hip with dressing in place Assessment and Plan (1) Hip fracture Current visit: Yes Status: Acute Qualifiers: Encounter type: initial encounter Fracture type: closed Laterality: right Qualified Code(s): S72.001A - Fracture of unspecified part of neck of right femur, initial encounter for closed fracture Category: Medical Code(s): S72.009A - Fracture of unspecified part of neck of unspecified femur, initial encounter for closed fracture (2) RBBB (right bundle branch block with left anterior fascicular block) Current visit: Yes Status: Acute Category: Medical Code(s): I45.2 - Bifascicular block (3) Tobacco use disorder, continuous Current visit: Yes Status: Acute Category: Medical Code(s): F17.209 - Nicotine dependence, unspecified, with unspecified nicotine-induced disorders (4) Alcohol use disorder Current visit: Yes Status: Acute Category: Medical (5) Alcohol intoxication Current visit: Yes Status: Acute Qualifiers: Complication of substance-induced condition: uncomplicated Qualified Code(s ): F10.920 - Alcohol use, unspecified with intoxication, uncomplicated Category: Medical Code(s): F10.929 - Alcohol use, unspecified with intoxication, unspecified (6) Hyponatremia Current visit: Yes Status: Acute Category: Medical Code(s): E87.1 - Hypo- osmolality and hyponatremia
--- NOTE | 2017-10-05 09:15 | Progress Note ---
Subjective Date: 10/05/17 Time: 09:11 Principal diagnosis: Post op, Bifascicular block on EKG Interval history: 72 yo WM in bed in NAD. States he feels great. No chest pain. Hip is sore but he is moving it. Exam Vital signs and Labs for Last 24 Hours: Temp Pulse Resp BP Pulse Ox 98.6 F 88 18 100/56 95 10/05/17 08:00 10/05/17 08:00 10/05/17 08:00 10/05/17 08:00 10/05/17 08:00 Laboratory Results - last 24 hr 10/04/17 11:43: Blood Type B Positive, Antibody Screen Negative 10/05/17 06:10: WBC 6.3, RBC 3.04 L, Hgb 9.8 L, Hct 30.1 L, MCV 99.0 H, MCH 32.3 H, MCHC 32.6, RDW 13.8, Plt Count 149, MPV 7.7, Neut % (Auto) 82.8 H, Lymph % (Auto) 11.0, [place] % (Auto) 5.4, Eos % (Auto) 0.7, Baso % (Auto) 0.1, Neut # (Auto) 5.2, Lymph # (Auto) 0.7, [place] # (Auto) 0.3, Eos # (Auto) 0.0, Baso # (Auto) 0.0 10/05/17 06:10: Sodium 133 L, Potassium 4.2, Chloride 102, Carbon Dioxide 27, Anion Gap 8.2, BUN 6 L D, Creatinine 0.56 L, Estimated Creat Clear 60, Estimated GFR 143, Est GFR ( Amer) 173, Glucose 110 H, Calcium 7.9 L, Total Bilirubin 0.4, AST 24, ALT 25, Alkaline Phosphatase 92, Total Protein 5.5 L, Albumin 2.7 L D, Globulin 2.8, Albumin/Globulin Ratio 1.0 L I & O for Last 24 hours: Intake & Output 10/02/17 10/03/17 10/04/17 10/05/17 11:59 11:59 11:59 11:59 Intake Total 1000 / 1000 1000 / 1000 Output Total 2700 / 2700 3290 / 3290 Balance -1700 / -1700 -2290 / -2290 Weight 145 lb 4 oz Microbiology Reports for the Last 24 Hours: Microbiology 10/04/17 09:35 Sputum - Expectorated Sputum Gram Stain - Final 10/04/17 09:35 Sputum - Expectorated Sputum Sputum Culture - Preliminary - *Routine Respiratory Exam Present: CTA bilaterally - *Routine Cardiovascular Exam Present: RRR Progress Note: A&P (1) Hip fracture Status: Acute Current Visit: Yes (2) RBBB (right bundle branch block with left anterior fascicular block) Status: Acute Current Visit: Yes (3) Tobacco use disorder, continuous Status: Acute Current Visit: Yes (4) Alcohol use disorder Status: Acute Current Visit: Yes (5) Alcohol intoxication Status: Acute Current Visit: Yes (6) Hyponatremia Status: Acute Current Visit: Yes Assessment and Plan for All Diagnoses:: Ok to discontinue bisoprolol. Continue PPI. Recommend follow up in our clinic in 2 wks.
--- NOTE | 2017-10-05 13:01 | Progress Note ---
Subjective Date: 10/05/17 Time: 12:00 Principal diagnosis: Status post cephalo-medullary nailing, right femur Interval history: Mr. James is a 72-year-old male, status post cephalo-medullary nailing right femur post op day #1. He is sitting out in a chair. He says he is doing well and is pain is well controlled with medication. He is eating and drinking well. At that no history of any fevers, chills or rigors. No history of any nausea, vomiting, chest pain or SOB. No history of any distal tingling or numbness. PN: Obj Ex Vital signs: Temp Pulse Resp BP Pulse Ox 98.6 F 88 18 100/56 95 10/05/17 08:00 10/05/17 08:00 10/05/17 08:00 10/05/17 08:00 10/05/17 08:00 Narrative: Intake & Output 10/03/17 10/04/17 10/05/17 10/06/17 11:59 11:59 11:59 11:59 Intake Total 1000 / 1000 1000 / 1000 Output Total 2700 / 2700 3290 / 3290 Balance -1700 / -1700 -2290 / -2290 Weight 145 lb 4 oz Laboratory Results - last 24 hr 10/05/17 06:10: WBC 6.3, RBC 3.04 L, Hgb 9.8 L, Hct 30.1 L, MCV 99.0 H, MCH 32.3 H, MCHC 32.6, RDW 13.8, Plt Count 149, MPV 7.7, Neut % (Auto) 82.8 H, Lymph % (Auto) 11.0, [place] % (Auto) 5.4, Eos % (Auto) 0.7, Baso % (Auto) 0.1, Neut # (Auto) 5.2, Lymph # (Auto) 0.7, [place] # (Auto) 0.3, Eos # (Auto) 0.0, Baso # (Auto) 0.0 10/05/17 06:10: Sodium 133 L, Potassium 4.2, Chloride 102, Carbon Dioxide 27, Anion Gap 8.2, BUN 6 L D, Creatinine 0.56 L, Estimated Creat Clear 60, Estimated GFR 143, Est GFR ( Amer) 173, Glucose 110 H, Calcium 7.9 L, Total Bilirubin 0.4, AST 24, ALT 25, Alkaline Phosphatase 92, Total Protein 5.5 L, Albumin 2.7 L D, Globulin 2.8, Albumin/Globulin Ratio 1.0 L I reviewed his vital signs, lab results, medication, nursing notes, medical progress notes and also discussed with the nursing staff regarding his progress. Exam General appearance: Alert, awake, no acute distress ENT: Moist mucous membranes Cardiovascular: regular rate & rhythm Respiratory: no respiratory distress, lungs clear to auscultation bilaterally ABD: soft and nontender. Skin: no gross abnormalities Neuro: non-focal On examination of his right lower extremity, the limb lengths are equal. The alignment is neutral. The dressings over the right hip/thigh are clean, dry and intact. Attempted movements of the right hip are painful. Distal neurovascular status is intact. Thigh and calf are soft and nontender. No clinical signs of DVT. - Urinary Catheter Management Coude Cath placed during this visit: yes Urethral indwelling: Yes Reason for continuing: Surgical procedure Insertion date: 10/03/17 Insertion time: 20:24 Progress Note: A&P (1) Hip fracture Status: Acute Assessment and plan: I reviewed the findings and procedure performed with the patient and his sister. I have given them a copy of his postoperative x-rays. He can be mobilized/transferred with a walker and with the help of physical therapist weightbearing on the right side as tolerated. Continue PT/OT, pain management with narcotic analgesics. Discontinue Bonner's catheter. Care management consult for discharge planning. From an orthopedic standpoint, he can be discharged to a long term facility if medically appropriate. Recommend DVT prophylaxis for 5 weeks postop- the appropriate agents include Lovenox, Aspirin 162 mg, Xarelto (Rivaroxaban), Eliquis (apixaban) and Coumadin. Follow- up in my office in 2 weeks time with check x-ray. Please feel free to call our office at [phone] for any orthopaedic questions. Medical management as per Dr. Meeks'ss team. Current Visit: Yes (2) RBBB (right bundle branch block with left anterior fascicular block) Status: Acute Current Visit: Yes (3) Tobacco use disorder, continuous Status: Acute Current Visit: Yes (4) Alcohol use disorder Status: Acute Current Visit: Yes (5) Alcohol intoxication Status: Acute Current Visit: Yes (6) Hyponatremia Status: Acute Current Visit: Yes
--- NOTE | 2017-10-06 08:25 | Progress Note ---
<Perlita Rodriguez - Last Filed: 10/06/17 08:22> Internal Medicine - PN: Subj *Date: 10/06/17 *Time: 08:22 Interval history: Patient states he is feeling better today. He is having pain in his hip but less than yesterday. He was able to work with therapy. He is going to have the dressing changed today. Exam Vital signs and Labs for Last 24 Hours: Temp Pulse Resp BP Pulse Ox 98.6 F 84 18 140/72 94 L 10/06/17 03:49 10/06/17 03:49 10/06/17 03:49 10/06/17 03:49 10/06/17 03:49 I & O for Last 24 hours: Intake & Output 10/03/17 10/04/17 10/05/17 10/06/17 11:59 11:59 11:59 11:59 Intake Total 1000 / 1000 1000 / 1000 2343 / 2343 Output Total 2700 / 2700 3290 / 3290 1100 / 1100 Balance -1700 / -1700 -2290 / -2290 1243 / 1243 Weight 145 lb 4 oz 145 lb 3.99 oz Microbiology Reports for the Last 24 Hours: Microbiology 10/04/17 09:35 Sputum - Expectorated Sputum Gram Stain - Final 10/04/17 09:35 Sputum - Expectorated Sputum Sputum Culture - Preliminary - Constitutional no acute distress - *Routine Respiratory Exam Present: CTA bilaterally - *Routine Cardiovascular Exam Present: RRR - *Routine Abdominal Exam Present: soft, normoactive bowel sounds. Absent: tenderness - *Routine Extremities Exam Absent: edema Comments: dressing in place on right hip Assessment and Plan (1) Hip fracture Current visit: Yes Status: Acute Qualifiers: Encounter type: initial encounter Fracture type: closed Laterality: right Qualified Code(s): S72.001A - Fracture of unspecified part of neck of right femur, initial encounter for closed fracture Category: Medical Code(s): S72.009A - Fracture of unspecified part of neck of unspecified femur, initial encounter for closed fracture (2) RBBB (right bundle branch block with left anterior fascicular block) Current visit: Yes Status: Acute Category: Medical Code(s): I45.2 - Bifascicular block (3) Tobacco use disorder, continuous Current visit: Yes Status: Acute Category: Medical Code(s): F17.209 - Nicotine dependence, unspecified, with unspecified nicotine-induced disorders (4) Alcohol use disorder Current visit: Yes Status: Acute Category: Medical (5) Alcohol intoxication Current visit: Yes Status: Acute Qualifiers: Complication of substance-induced condition: uncomplicated Qualified Code(s ): F10.920 - Alcohol use, unspecified with intoxication, uncomplicated Category: Medical Code(s): F10.929 - Alcohol use, unspecified with intoxication, unspecified (6) Hyponatremia Current visit: Yes Status: Acute Category: Medical Code(s): E87.1 - Hypo- osmolality and hyponatremia - Assessment and plan all Dx Assessment and Plan for all problems:: Patient doing well. Will continue with therapy. Surgery to follow. Patient has a bed at a rehab center when he is ready to be discharged. <ShamaMandy - Last Filed: 10/06/17 10:52> Internal Medicine - PN: Subj *Date: 10/06/17 *Time: 10:47 Exam Vital signs and Labs for Last 24 Hours: Temp Pulse Resp BP Pulse Ox 98.3 F 95 H 18 150/92 95 10/06/17 08:00 10/06/17 08:00 10/06/17 08:00 10/06/17 08:00 10/06/17 08:00 Laboratory Results - last 24 hr 10/06/17 08:40: Hgb 8.3 L, Hct 26.1 L I & O for Last 24 hours: Intake & Output 10/03/17 10/04/17 10/05/17 10/06/17 11:59 11:59 11:59 11:59 Intake Total 1000 / 1000 1000 / 1000 2343 / 2343 Output Total 2700 / 2700 3290 / 3290 1100 / 1100 Balance -1700 / -1700 -2290 / -2290 1243 / 1243 Weight 145 lb 4 oz 145 lb 3.99 oz Microbiology Reports for the Last 24 Hours: Microbiology 10/04/17 09:35 Sputum - Expectorated Sputum Gram Stain - Final 10/04/17 09:35 Sputum - Expectorated Sputum Sputum Culture - Preliminary - Constitutional no acute distress - *Routine HEENT Exam Head: Present: normocephalic - *Routine Neck Exam Present: full ROM - *Routine Respiratory Exam Present: CTA bilaterally - *Routine Cardiovascular Exam Present: RRR - *Routine Abdominal Exam Present: soft, normoactive bowel sounds - Routine Back/Spine/Pelvis Exam Comments: Limited ROM on right hip, consistent s/p surgery Assessment and Plan (1) Hip fracture Current visit: Yes Status: Acute Qualifiers: Encounter type: initial encounter Fracture type: closed Laterality: right Qualified Code(s): S72.001A - Fracture of unspecified part of neck of right femur, initial encounter for closed fracture Category: Medical Code(s): S72.009A - Fracture of unspecified part of neck of unspecified femur, initial encounter for closed fracture (2) RBBB (right bundle branch block with left anterior fascicular block) Current visit: Yes Status: Acute Category: Medical Code(s): I45.2 - Bifascicular block (3) Tobacco use disorder, continuous Current visit: Yes Status: Acute Category: Medical Code(s): F17.209 - Nicotine dependence, unspecified, with unspecified nicotine-induced disorders (4) Alcohol use disorder Current visit: Yes Status: Acute Category: Medical (5) Alcohol intoxication Current visit: Yes Status: Acute Qualifiers: Complication of substance-induced condition: uncomplicated Qualified Code(s ): F10.920 - Alcohol use, unspecified with intoxication, uncomplicated Category: Medical Code(s): F10.929 - Alcohol use, unspecified with intoxication, unspecified (6) Hyponatremia Current visit: Yes Status: Acute Category: Medical Code(s): E87.1 - Hypo- osmolality and hyponatremia - Assessment and plan all Dx Assessment and Plan for all problems:: Patient will be started on Lovenox 40 mg QD for DVT/PE prophylaxis given s/p surgery for 35 days. Case management aware. Continue spirometry for pneumonia prevention. Replaced potassium per protocol. Will discharge in PM to acute rehab if orthopedic surgeon agrees.
[2017-10-06 08:33] VITALS: BP 150/92
[2017-10-06 08:46] LABS: Hematocrit 26.1 % (42.0-52.0); Hemoglobin 8.3 g/dL (14.1-18.0)
--- NOTE | 2017-10-06 08:49 | Discharge Summary ---
General - General Admission date:: 10/03/17 <Mandy Sesay - 10/06/17 13:14> 10/03/17 <JenniferRobela - 10/06/17 08:49> Discharge date: 10/06/17 <JenniferPerlita - 10/06/17 08:49> HPI HPI: Mr. James is a 72 year old male with a long-standing history of tobacco and alcohol usage who presented to [facility] emergency room after a fall resulting in right hip pain. He states he does not recall why he fell but may have tripped. He denies chest pain, shortness of breath, dizziness and heart palpitations. [place] Patient has had no previous cardiac issues and has not seen a physician in a long while. He takes only a baby aspirin daily. Emergency room evaluation revealed a right hip fracture. EKG was abnormal with a right bundle branch block and a left anterior hemiblock. He was admitted for further evaluation and treatment with an orthopedic consult and cardiac consult for clearance for surgery. This a.m. his right hip hurts with movement and is otherwise sore. He denies chest pain and shortness of breath. <JenniferPerlita - 10/06/17 08:49> Hospital Course Hospital Course: All of the patient's other imaging was normal. His right hip x-ray showed a comminuted mildly displaced intertrochanteric fracture of the right hip. He was seen by cardiology and his echocardiogram showed a preserved ejection fraction at greater than 50%. They felt he was a low and acceptable risk to proceed with surgery for hip fracture. They recommended perioperative aspirin, low-dose beta-samantha and proton pump inhibitor due to history of peptic ulcer disease. Dr. Guerrero saw the patient and performed a closed reduction and cephalo -medullary ( Gamma, Raven) nailing of the right femur. The patient tolerated the procedure well. He worked with PT and was stable to be discharged to a rehab facility for further rehabilitation. Dr. Guerrero felt he should follow up in his clinic in 2 weeks. He can be mobilized/transferred with a walker and, with the help of physical therapist, weightbearing on the right side as tolerated. He will need to continue PT/OT at the skilled nursing and pain management with narcotic analgesics. He recommended DVT prophylaxis for 5 weeks postop. He can be discharged on Lovenox 40 mg QD for DVT/PE prophylaxis for 35 days. Will continue spirometry for pneumonia prevention. His H&H did drop from 12.6 to 8.3. He will need a CBC and CMP checked in 1 week. <Perlita Rodriguez - 10/06/17 13:08> Objective Vital signs: Temp Pulse Resp BP Pulse Ox 98.3 F 95 H 18 150/92 95 10/06/17 08:00 10/06/17 08:00 10/06/17 08:00 10/06/17 08:00 10/06/17 08:00 <Mandy Sesay - 10/06/17 13:14> Temp Pulse Resp BP Pulse Ox 98.3 F 95 H 18 150/92 95 10/06/17 08:00 10/06/17 08:00 10/06/17 08:00 10/06/17 08:00 10/06/17 08:00 <Perlita Rodriguez - 10/06/17 08:49> Narrative: - Constitutional no acute distress Comments: Lying in bed and appears comfortable. Friend at bedside - *Routine HEENT Exam Head: Present: normocephalic, atraumatic Eye: Present: PERRL, normal accommodation. Absent: conjunctival icterus, conjunctivae pink - *Routine Neck Exam Present: supple, full ROM, trachea midline. Absent: carotid bruit, lymphadenopathy, thyromegaly, tenderness Comments: Bearded - *Routine Respiratory Exam Present: CTA bilaterally (Anteriorly and posteriorly with diminished breath sounds posteriorly) - *Routine Cardiovascular Exam Present: RRR. Absent: murmur - *Routine Abdominal Exam Present: soft, normoactive bowel sounds, surgical scars. Absent: tenderness, distended, guarding - *Routine Extremities Exam Absent: edema, calf tenderness Comments: Right foot externally rotated. He can slightly reposition. - *Routine Neurological Exam Present: alert, oriented X3 <Perlita Rodriguez - 10/06/17 08:49> Results Labs on day of discharge: Labs from last 24 hours 10/06/17 08:40 Hgb 8.3 L Hct 26.1 L Preliminary micro results at discharge 10/04/17 09:35 Sputum Culture - Preliminary Sputum - Expectorated Sputum <Mandy Sesay - 10/06/17 13:14> Preliminary micro results at discharge 10/04/17 09:35 Sputum Culture - Preliminary Sputum - Expectorated Sputum <Perlita Rodriguez 10/06/17 08:49> DS: Diagnosis - Discharge Diagnosis (1) Hip fracture Status: Acute (2) RBBB (right bundle branch block with left anterior fascicular block) Status: Acute (3) Tobacco use disorder, continuous Status: Acute (4) Alcohol use disorder Status: Acute (5) Alcohol intoxication Status: Acute (6) Hyponatremia Status: Acute <Robel Rodrigueza 10/06/17 12:58> (1) Hip fracture Status: Acute (2) RBBB (right bundle branch block with left anterior fascicular block) Status: Acute (3) Tobacco use disorder, continuous Status: Acute (4) Alcohol use disorder Status: Acute (5) Alcohol intoxication Status: Acute (6) Hyponatremia Status: Acute <ShamaMandy 10/06/17 13:14> Discharge Plan - Patient Discharge Instructions Additional Instructions: Please inform MD at rehab to check H&H in a week to make sure patient is not still anemic <ShamaMandy 10/06/17 13:14> Patient Instructions: Surgical Site Infection <ShamaMandy 10/06/17 13:14> Forms: <ShamaMandy 10/06/17 13:14> - Follow up Plan Follow up with: <ShamaMandy 10/06/17 13:14> Disposition: Xfer Inpatient Rehab Fac <ShamaMandy 10/06/17 13:14> Prescriptions/Medication Reconciliation: New RX: Hydrocod/Acet 5/325 mg [Soper 5/325mg tablet] 2 tab PO Q4HP PRN tablet PRN Reason: Moderate To Severe Pain RX: Nicotine [Nicoderm 21mg/24hr patch] 21 mg TD DAILYP PRN patch.td24 PRN Reason: Nicotine Cravings RX: Docusate Sodium [Docusate Sodium 100mg Cap] 100 mg PO BIDP PRN capsule PRN Reason: Constipation RX: Bisoprolol Fumarate [Zebeta 5mg tablet] 2.5 mg PO DAILY tablet RX: Aspirin [Aspirin 81mg chewable tab] 162 mg PO DAILY tab.chew RX: Ferrous Sulfate 325 mg PO BID #60 tab RX: Enoxaparin Sodium [Lovenox 40mg/0.4mL syringe] 40 mg SQ DAILY syringe <Mandy Sesay - 10/06/17 13:14>
--- NOTE | 2017-10-06 13:52 | Progress Note ---
Subjective Date: 10/06/17 Time: 12:10 Principal diagnosis: Status post cephalo-medullary nailing, right femur Interval history: Patient is status post cephalo-medullary nailing right femur, post op day #2. Patient is sitting out in the chair. Says he is doing well and reports no problems. Patient says he has very little pain today and it's well-controlled with medication. No history of any nausea or vomiting. No history of any cough, chest pain, shortness of breath or palpitations. Patient says he is eating and drinking well. No history of any distal tingling or numbness. 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 Thigh and calf are soft and nontender. On examination of the right hip/thigh, the dressings are clean, dry and intact. The dressings were changed by me. There is no of soakage of the dressings. The incisions looks clean and healthy. No evidence of any infection or other complications noted. Distal pulses are 1+. Distal sensation is intact to light touch throughout. No motor deficits noted distally. - Urinary Catheter Management Coude Cath placed during this visit: yes Urethral indwelling: Yes Reason for continuing: Surgical procedure Insertion date: 10/03/17 Insertion time: 20:24 Progress Note: A&P (1) Hip fracture Status: Acute Assessment and plan: Post op patient plan I reviewed the clinical findings and progress with the patient and family. Patient is doing very well and reports no problems. Patient is mobilizing well weightbearing as tolerated on the right side with the walker and to continue the same. Continue PT/OT, pain management with as needed narcotic analgesics. Continue DVT prophylaxis. He is being [facility] to a [facility] facility today. Recommend DVT prophylaxis for 5 weeks postop- the appropriate agents include Lovenox, Aspirin 325 mg, Xarelto (Rivaroxaban), Eliquis (apixaban) and Coumadin. Follow-up in my office in 2 weeks time with check x-ray. Please feel free to call our office at [phone] for any orthopaedic questions. Medical management as per Dr. Meeks's team. Current Visit: Yes (2) RBBB (right bundle branch block with left anterior fascicular block) Status: Acute Current Visit: Yes (3) Tobacco use disorder, continuous Status: Acute Current Visit: Yes (4) Alcohol use disorder Status: Acute Current Visit: Yes (5) Alcohol intoxication Status: Acute Current Visit: Yes (6) Hyponatremia Status: Acute Current Visit: Yes
== END 2017-10-06 14:30 ==
LOC: ER 20:01 → 2ND 21:54
PROVIDERS: ADMIT Family Medicine; ATTEND Family Medicine

== ENCOUNTER → 2017-10-19 09:08 | Outpatient (CLI) | payer MEDICARE, SELFPAY ==
--- NOTE | 2017-10-19 09:12 | XR_ITS ---
XR femur RT 2V COMPARISON: Right femur 10/03/2017 HISTORY: Recent intertrochanteric fracture right hip TECHNIQUE: AP and lateral views FINDINGS: There is a long intramedullary michael extending the length of the femur down to the femoral condyles. There is a horizontal threaded screw at the diametaphyseal zone of the distal femur. The soft tissues are normal. IMPRESSION: Satisfactory placement of long intramedullary michael
--- NOTE | 2017-10-19 09:12 | XR_ITS ---
XR hip RT 2-3V w/pelvis HISTORY: Recent hip fracture ITS.REASON: sp closed reduction gamma nail RT femur sx 10/04/17 ORDERING PHYSICIAN: Shantanu Guerrero MD PATIENT AGE: 72 years COMPARISON: AP pelvis and right hip 10/04/2017 FINDINGS: The gamma nail and long intramedullary michael are again noted fixating the intertrochanteric fracture in near anatomic alignment. There has been interval resolution of the soft tissue gas seen on the previous study following surgery. IMPRESSION: Satisfactory ORIF intertrochanteric fracture right hip
== END ==
PROVIDERS: PCP Family Medicine; Visit Provider Orthopaedic Surgery
DX: Z47.89 Encounter for other orthopedic aftercare (principal)
CPT/HCPCS: 73502; 73552

== ENCOUNTER → 2017-11-02 13:22 | Outpatient (CLI) | payer MEDICARE, SELFPAY ==
--- NOTE | 2017-11-02 13:49 | NVE_ITS ---
Venous Exam Indications: 782.3 Edema. IMPRESSIONS 1. There is no evidence of significant Reflux. 2. No evidence of deep or superficial vein thrombosis involving the right lower extremity History: Risk factors: Recent surgery: RIGHT HIP. Right lower extremity venous duplex evaluation. Doppler flow study including spectral analysis, color and varela scale imaging. Location: Vascular laboratory. Patient status: Outpatient. CRITICAL FINDINGS - Reported to: HARRIS - Read back and verified. - 11/02/17 - 1415 - NONE Tables: Venous flow and imaging: + +-------+ + Location Overall Flow properties + +-------+ + Right common femoral Patent Normal phasicity; spontaneous; normal augmentation; compressible + +-------+ + Right saphenofemoral junction Patent Compressible + +-------+ + Right profunda femoral Patent Compressible + +-------+ + Right femoral Patent Normal phasicity; spontaneous; normal augmentation; compressible + +-------+ + Right greater saphenous Patent Normal phasicity; spontaneous; normal augmentation; compressible + +-------+ + Right popliteal Patent Normal phasicity; spontaneous; normal augmentation; compressible + +-------+ + Right posterior tibial Patent Compressible + +-------+ + Right peroneal Patent Compressible + +-------+ + Right gastrocnemius Patent Compressible + +-------+ + Right soleal Patent Compressible + +-------+ + (Report amended ) Electronically signed by: Jan Pierson [id number]
== END ==
PROVIDERS: PCP Family Medicine; Visit Provider Nurse Practitioner
DX: R60.1 Generalized edema (principal)
CPT/HCPCS: 93971

== ENCOUNTER → 2017-11-16 13:05 | Outpatient (CLI) | payer MEDICARE, SELFPAY ==
--- NOTE | 2017-11-16 13:08 | XR_ITS ---
XR hip RT 2-3V w/pelvis HISTORY: Follow-up fracture ITS.REASON: sp gamma nailing sx 10/04/17 ORDERING PHYSICIAN: Shantanu Guerrero MD PATIENT AGE: 72 years COMPARISON: 10/19/2017 FINDINGS: Gamma nail with long intramedullary michael has been placed stabilizing the comminuted intertrochanteric fracture. Fracture lines are somewhat less apparent. There is medial displacement of the lesser trochanter fracture fragment. There is good alignment. IMPRESSION: Healing right intertrochanteric fracture status post ORIF with good alignment
--- NOTE | 2017-11-16 13:08 | XR_ITS ---
XR femur RT 2V CLINICAL INDICATION: Follow-up fracture ITS.REASON: sp gamma nailing sx 10/04/17 ORDERING PHYSICIAN: Shantanu Guerrero MD PATIENT AGE: 72 years Comparison: 10/19/2017 FINDINGS: Status post ORIF comminuted intertrochanter fracture with gamma nail and long intramedullary michael. The IM michael position without evidence of complications. IMPRESSION: Status post ORIF comminuted intertrochanteric fracture with IM michael present without evidence of complications
== END ==
PROVIDERS: PCP Family Medicine; Visit Provider Orthopaedic Surgery
DX: Z09 Encounter for follow-up examination after completed treatment for conditions other than malignant neoplasm (principal); S72.141A Displaced intertrochanteric fracture of right femur, initial encounter for closed fracture
CPT/HCPCS: 73502; 73552

== ENCOUNTER → 2017-11-24 10:21 | Outpatient (CLI) | payer MEDICARE, SELFPAY ==
--- NOTE | 2017-11-24 10:25 | XR_ITS ---
XR DEXA axial skeleton HISTORY: ITS.REASON: osteoporisis ORDERING PHYSICIAN: Shantanu Guerrero MD PATIENT AGE: 72 years COMPARISON: None FINDINGS: The BMD measured at the L1 L4 femoral neck is 0.842 g/cm squared with a T score of -3.2. This is considered osteoporotic according to the World Health Organization criteria. Fracture risk is high. Treatment suggested. The left femoral neck density has a T score of -3.0. The radius 33% has a T score of -3.3.. IMPRESSION: Osteoporosis with high fracture risk. Treatment recommended. Recommend follow-up exam in one year to monitor response to therapy
== END ==
PROVIDERS: PCP Family Medicine; Visit Provider Orthopaedic Surgery
DX: M81.0 Age-related osteoporosis without current pathological fracture (principal)
CPT/HCPCS: 77080

== ENCOUNTER → 2017-12-29 11:42 | Outpatient (CLI) | payer MEDICARE, SELFPAY ==
--- NOTE | 2017-12-29 11:45 | XR_ITS ---
XR hip RT 2-3V w/pelvis HISTORY: Follow-up surgery ITS.REASON: sp closed reduction gamma nail RT femur sx 10/04/17 ORDERING PHYSICIAN: Shantanu Guerrero MD PATIENT AGE: 72 years COMPARISON: 11/16/2017 FINDINGS: Status post ORIF comminuted right intertrochanteric fracture with gamma nail and long intramedullary michael. There is good alignment. Fracture line is still visible. Lesser trochanter fragment displaced medially unchanged. The distal aspect of the IM michael has an unremarkable appearance. IMPRESSION: Overall no change in alignment status post ORIF right intertrochanteric fracture
--- NOTE | 2017-12-29 11:45 | XR_ITS ---
XR hip RT femur 2 views HISTORY: Follow-up surgery ITS.REASON: sp closed reduction gamma nail RT femur sx 10/04/17 ORDERING PHYSICIAN: Shantanu Guerrero MD PATIENT AGE: 72 years COMPARISON: 11/16/2017 FINDINGS: Status post ORIF comminuted right intertrochanteric fracture with gamma nail and long intramedullary michael. There is good alignment. Fracture line is still visible. Lesser trochanter fragment displaced medially unchanged. The distal aspect of the IM michael has an unremarkable appearance. IMPRESSION: Overall no change in alignment status post ORIF right intertrochanteric fracture
== END ==
PROVIDERS: PCP Family Medicine; Visit Provider Orthopaedic Surgery
DX: S72.141A Displaced intertrochanteric fracture of right femur, initial encounter for closed fracture (principal); Z09 Encounter for follow-up examination after completed treatment for conditions other than malignant neoplasm
CPT/HCPCS: 73502; 73552

== ENCOUNTER → 2018-03-24 09:40 | Outpatient (CLI) | payer MEDICARE, SELFPAY ==
--- NOTE | 2018-03-24 09:42 | XR_ITS ---
XR hip RT 2-3V XR femur RT 2V Ordering Physician: Shantanu Guerrero MD Patient Age: 72 years: Male HISTORY: ITS.REASON: closed reduction gamma nailing rt femur Closed reduction Gamma nail. Surgery in September. TECHNIQUE: Right femur AP lateral view. Right hip AP & crosstable lateral view. COMPARISON :. Right femur is present right hip 12/29/2017 ===== RIGHT HIP Patient has undergone ORIF of intertrochanteric fracture with gamma nail and long intramedullary michael. There is good alignment. The fracture line is less evident but still visible. With fracture line extending up to where the intramedullary michael enters the cap of the greater trochanter. On the fragmented lesser trochanter with some early healing bone evident as well ======= RIGHT FEMUR long medullary michael appears stable. Secured proximally by the gamma nail and distally by a transverse screw. The distal femoral shaft. Stable satisfactory appearance . IMPRESSION: Stable ORIF trochanteric fracture . Stable position of fracture and fixation elements. Gamma nail with long medullary michael at femur
== END ==
PROVIDERS: PCP Family Medicine; Visit Provider Orthopaedic Surgery
DX: S72.141A Displaced intertrochanteric fracture of right femur, initial encounter for closed fracture (principal); Z09 Encounter for follow-up examination after completed treatment for conditions other than malignant neoplasm
CPT/HCPCS: 73502; 73552

== ENCOUNTER 2020-10-03 08:59 | Emergency (ER) | payer MEDICARE, SELFPAY ==
[2020-10-03 09:00] VITALS: BP 142/72; PULSE 65; RESP 18; TEMP 36.6; O2SAT 98; BMI 18.6
--- NOTE | 2020-10-03 09:16 | HMH.EDUTC ---
[facility] Disposition Clinical Impression: Sinusitis Qualifiers: Sinusitis location: unspecified location Chronicity: unspecified Qualified Code(s): J32.9 - Chronic sinusitis, unspecified Disposition: Home, Self-Care Condition on Discharge: Good Instructions: Sinusitis, DI for Sinusitis Additional Instructions: *Monitor Temp, Over the counter Motrin or Tylenol as directed/as needed Tylenol every 4 hours and Motrin every 6 hours (as long as your family doctor has told you that you can take it) for fever or pain. and straight to ER if unable to lower temp less than 101.0 after medication given *Warm salt water gargles may help to soothe the throat *Throat Lozenges *Warm fluids like tea with honey may help to soothe the throat and open up sinuses *Sleep elevated *Humidifier/Vaporizer *Flonase 2 sprays in each nostril daily but be aware that it may take 2-3 days before you notice improvement *Take antibiotics as prescribed Follow up IMMEDIATELY for new or worsening symptoms or no Noticeable improvement over the next 48-72 hours. 911 for difficulty breathing or swallowing Prescriptions: Amoxicillin/Potassium Clav [Augmentin 875-125 Tablet] 1 tab PO Q12H 7 Days #14 tab Transmission Status: Pending to [facility] predniSONE [Deltasone 10mg tablet] 10 mg PO BID 5 Days #10 tab Transmission Status: Pending to [facility] Fluticasone Propionate [Flonase 50mcg nasal spray 16gm] 1 spr NS DAILY #1 bottle Transmission Status: Pending to [facility] Referrals: Provider,Referral, [Primary Care Provider] - As needed Time of Disposition: 09:28 Medical Decision Making - Triston Inquiry Pt receiving controlled substance: No Triston was queried for this patient: No Vital Signs: 10/03/20 09:00 Temperature 97.9 F Temperature Source Oral Pulse Rate [Left Brachial] 65 Respiratory Rate 18 Blood Pressure [Left Arm] 142/72 H Blood Pressure Mean [Left Arm] 95 Blood Pressure Source [Left Arm] Automatic Cuff Blood Pressure Position [Left Arm] Sitting 02 Sat by Pulse Oximetry 98 Oxygen Delivery Method Room Air [facility] HPI - General Stated complaint: cough, congestion Time Seen by Provider: 10/03/20 09:17 Mode of Arrival: Ambulatory Source of Information: Patient, Relative Limitations: No Limitations Description of Symptoms (Recalled from Triage Doc. by RN): PATIENT C/O SINUS CONGESTION AND GREEN SPUTUM/DRAINAGE HEENT Symptoms (Recalled from RN notes): Yes Resp Symptoms (Recalled from RN notes): No Skin Symptoms (Recalled from RN notes): No MS Symptoms (Recalled from RN notes): No Functional Status (Recalled from RN notes): WNL - History of Present Illness Provider Complaint: Patient state that he started over a month ago and thought it was allergies so he started taking allergy medication State that it has continued to get worse and drainage went from clear to yellowish green States he has been taking mucinex and it has helped some but now mucous is getting thicker State that family stopped by and told him he needed to come and get checked - Related Data Previous Rx's Medication Instructions Recorded Amoxicillin/Potassium Clav 1 tab PO Q12H 7 Days #14 tab 10/03/20 [Augmentin 875-125 Tablet] Fluticasone Propionate [Flonase 1 spr NS DAILY #1 bottle 10/03/20 50mcg nasal spray 16gm] predniSONE [Deltasone 10mg tablet] 10 mg PO BID 5 Days #10 tab 10/03/20 Allergies Allergy/AdvReac Type Severity Reaction Status Date / Time No Known Allergies Allergy Verified 03/24/18 11:00 - Worker's Comp Is this a Worker's Comp case?: No [facility] History - Hepatitis A Screen Drug use history?: No High risk sexual behaviors?: No History of sexually transmitted infection?: No Currently employed?: No Childcare worker?: No Do you have indoor plumbing?: Yes Do you have electricity?: Yes Attestation statement:: This patient has been screened for Hepatitis A risk factors. I have reviewed the patient's
[2020-10-03 09:29] VITALS: BP 142/72; PULSE 65; RESP 18; TEMP 36.6; O2SAT 98
== END 2020-10-03 09:35 | disposition home or self-care (01) ==
PROVIDERS: Emergency Provider Nurse Practitioner
DX: J32.9 Chronic sinusitis, unspecified (principal); F17.210 Nicotine dependence, cigarettes, uncomplicated

== ENCOUNTER 2023-05-23 15:08 | Outpatient (CLI) | payer MEDICARE, SELFPAY ==
[2023-05-23 18:36] LABS: Basophils % 0.1 % (0.1-2.0); Eosinophils % 0.1 % (0.1-12.0); Hemoglobin 12.3 g/dL (14.1-18.0); Lymphocytes # 0.4 K/mm3 (0.7-4.5); Lymphocytes % 3.8 % (10-50); Mean Corpuscular HGB Conc 31.6 g/dL (31.8-35.4); Mean Corpuscular Volume 101.2 fl (80-94); Mean Platelet Volume 9.2 fl (7.4-10.4); Monocytes # 0.4 K/mm3 (0.1-1.0); Monocytes % 3.6 % (1.7-9.3); Neutrophils # 9.9 K/mm3 (1.8-7.8); Neutrophils % 92.4 % (37.0-80.0); Platelet Count 262 K/mm3 (142-424); Red Blood Count 3.85 M/mm3 (4.60-6.20); Red Cell Distribution Width 16.1 % (11.5-17.5); White Blood Count 10.7 K/mm3 (4.8-10.8)
[2023-05-23 18:38] LABS: MANUAL DIFFERENTIAL MANUAL DIFFERENTIAL (MANUAL DIFF)
[2023-05-23 18:40] LABS: Chloride 103 mmol/L (98-107); Potassium 4.8 mmoL/L (3.5-5.1); Sodium 136 mmol/L (136-145)
[2023-05-23 18:43] LABS: Alanine Aminotransferase 26 U/L (12-78); Albumin/Globulin Ratio 1.3 (1.1-1.8); Alkaline Phosphatase 194 U/L (38-126); Anion Gap 8.8 mEq/L (5-15); Aspartate Amino Transferase 52 U/L (17-59); Bilirubin,Total 0.6 mg/dl (0.2-1.3); Blood Urea Nitrogen 18 mg/dl (9-20); Calcium 9.3 mg/dl (8.4-10.2); Carbon Dioxide 29 mmol/L (22.0-30.0); Estimated Glomerular Filt Rate 160 ml/min (>60); GFR (African American) 194 ML/MIN (>60); Glucose 112 mg/dl (74-100)
[2023-05-23 19:10] LABS: Thyroid Stimulating Hormone 0.84 uIU/mL (0.465-4.68)
[2023-05-23 19:46] LABS: Lymphocytes % 8 % (10-50); Macrocytosis 1+; Monocytes % 1 % (2-9); Neutrophils % 91 % (42-76); Platelet Estimate Normal; Total Cells Counted 100
[2023-05-23 19:47] LABS: Acanthocytes 1+
[2023-05-23 20:50] LABS: Vitamin B12 679 pg/mL (239-931)
== END 2023-05-23 23:59 ==
LOC: LAB.DROPOF 05-24 15:14
PROVIDERS: PCP Nurse Practitioner; Visit Provider Nurse Practitioner
DX: F17.210 Nicotine dependence, cigarettes, uncomplicated (principal); R05.9 Cough, unspecified; R09.89 Other specified symptoms and signs involving the circulatory and respiratory systems; R63.4 Abnormal weight loss; Z68.1 Body mass index [BMI] 19.9 or less, adult
CPT/HCPCS: 80053; 82607; 84443; 85007; 85025

== ENCOUNTER 2023-05-25 09:32 | Outpatient (CLI) | payer MEDICARE, SELFPAY ==
--- NOTE | 2023-05-25 09:38 | XR_ITS ---
FINAL REPORT CLINICAL HISTORY: diminished breath sounds, smoker, cough FINDINGS: PA and lateral views of the chest are obtained. The cardiac and mediastinal silhouettes are within normal limits. There are bilateral upper lobe areas of scarring with cavities in both lung apices, favor chronic however a pneumothorax is difficult to exclude without a prior exam. Note is made of underlying emphysema. There is no pleural effusion or focal infiltrate. The osseous structures demonstrate multiple thoracic compression fractures of indeterminate age. IMPRESSION: Likely chronic apical cavities and bilateral upper lobe scarring however pneumothorax is difficult to exclude without prior exam for comparison. Reviewed, Interpreted and Dictated by Callie Bella MD Transcribed by Alyssa Dubois Authenticated and [facility]
== END 2023-05-25 23:59 ==
PROVIDERS: PCP Nurse Practitioner; Visit Provider Nurse Practitioner
DX: F17.210 Nicotine dependence, cigarettes, uncomplicated (principal); R05.9 Cough, unspecified; R09.89 Other specified symptoms and signs involving the circulatory and respiratory systems
CPT/HCPCS: 71046

== ENCOUNTER 2023-05-28 10:23 | Emergency (ER) | payer MEDICARE, SELFPAY ==
[2023-05-28 10:41] VITALS: BP 156/94; PULSE 64; RESP 18; TEMP 36.5; O2SAT 97; BMI 21.3
--- NOTE | 2023-05-28 10:53 | CT_ITS ---
PROCEDURE INFORMATION: Exam: CT Abdomen And Pelvis With Contrast Exam date and time: 05/28/2023 11:50 AM Age: 77 years old Clinical indication: Constipation; Additional info: No bm x 1 wk, h/o extensive abd surgeries TECHNIQUE: Imaging protocol: Computed tomography of the abdomen and pelvis with contrast. Total images: 273 Radiation optimization: All CT scans at this facility use at least one of these dose optimization techniques: automated exposure control; mA and/or kV adjustment per patient size (includes targeted exams where dose is matched to clinical indication); or iterative reconstruction. Contrast material: ISOVUE; Contrast volume: 100 ml; Contrast route: IV; COMPARISON: CR HIPCMRT XR hip RT 2-3V w/pelvis 03/24/2018 9:56 AM FINDINGS: Liver: Normal. No mass. Gallbladder and bile ducts: Sludge is noted within the gallbladder. Common bile duct measures up to 9 mm. Pancreas: Normal. No ductal dilation. Spleen: Normal. No splenomegaly. Adrenal glands: Normal. No mass. Kidneys and ureters: Normal. No hydronephrosis. Stomach and bowel: Large amount of stool is noted throughout the colon. Appendix: No evidence of appendicitis. Intraperitoneal space: Normal. No significant fluid collection. Vasculature: Moderate atherosclerotic disease. Lymph nodes: Unremarkable. No enlarged lymph nodes. Urinary bladder: Calcifications noted within the urinary bladder. Reproductive: Unremarkable as visualized. Bones/joints: Postoperative changes of the right proximal femur. Moderate degenerative changes of the thoracic spine with several compression deformities present, ages are indeterminate. Soft tissues: Soft tissues are normal. Other findings: Postoperative changes are present. IMPRESSION: 1. Sludge is noted within the gallbladder. 2. Large amount of stool is noted throughout the colon. 3. Common bile duct measures up to 9 mm. 4. Calcifications noted within the urinary bladder. 5. Moderate degenerative changes of the thoracic spine with several compression deformities present, ages are indeterminate.
--- NOTE | 2023-05-28 10:53 | CT_ITS ---
PROCEDURE INFORMATION: Exam: CTA Chest With Contrast Exam date and time: 05/28/2023 11:50 AM Age: 77 years old Clinical indication: Abnormal findings; Other: XR 05/25 showing possible pneumothorax vs scarring TECHNIQUE: Imaging protocol: Computed tomographic angiography of the chest with contrast. Exam focused on the arteries. 3D rendering (Not supervised by radiologist): MIP and/or 3D reconstructed images were created by the technologist. Total images: 469 Radiation optimization: All CT scans at this facility use at least one of these dose optimization techniques: automated exposure control; mA and/or kV adjustment per patient size (includes targeted exams where dose is matched to clinical indication); or iterative reconstruction. Contrast material: ISOVUE; Contrast volume: 100 ml; Contrast route: INTRAVENOUS (IV); COMPARISON: CR XR CHEST 2V 05/25/2023 9:39 AM FINDINGS: Pulmonary arteries: No evidence of pulmonary embolism. Aorta: Moderate tortuosity of the thoracic aorta without evidence of dissection. Other arteries: Mild atherosclerotic disease. Lungs: Scarring is noted within both lung apices with cavitary lesions noted. Granulomatous calcification noted within the right lung base. Pleural spaces: No definite pneumothorax as imaged. Pleural calcifications present within both lung bases. No pleural effusions. Heart: Unremarkable. No cardiomegaly. No pericardial effusion. Lymph nodes: Unremarkable. No enlarged lymph nodes. Bones/joints: Moderate degenerative changes of the thoracic spine with several compression deformities present ages are indeterminate. Soft tissues: Unremarkable. IMPRESSION: 1. Scarring is noted within both lung apices with cavitary lesions noted. 2. No definite pneumothorax as imaged. 3. No evidence of pulmonary embolism. 4. Moderate tortuosity of the thoracic aorta without evidence of dissection. 5. No pleural effusions. 6. Moderate degenerative changes of the thoracic spine with several compression deformities present ages are indeterminate.
[2023-05-28 10:58] VITALS: BP 140/83; PULSE 67; O2SAT 97
--- NOTE | 2023-05-28 10:59 | ED_ITS ---
Discharge Plan Disposition Patient Disposition: Home, Self-Care Condition: Good Prescriptions Prescriptions: New lactulose 10 gram/15 mL solution 15 ml PO BID PRN (Reason: constipation) Qty: 473 0RF sennosides [senna] 8.6 mg tablet 8.6 mg PO HS Qty: 30 0RF No Action cefdinir 300 mg capsule 300 mg PO BID Qty: 20 0RF prednisone 20 mg tablet 20 mg PO .COMPLEX Qty: 15 0RF Rx Instructions: 20 mg orally BID x 5 days then daily x 5 days albuterol sulfate 90 mcg/actuation HFA aerosol inhaler 2 puff inhalation Q4-6H PRN (Reason: shortness of breath or wheezing) Qty: 8.5 0RF Referrals Follow up/Referrals: Winter Ren APRN [Primary Care Provider] - See instructions Activity Restrictions/Add. Instructions Additional Instructions/Restrictions: You were evaluated in the emergency department today. Please citrus picker your prescriptions at the pharmacy and use them as prescribed for constipation. Follow-up closely with your primary care provider. Return to the emergency department for any new or worsening symptoms. Clinical Impressions Clinical Impression: Constipation, Pulmonary scarring, Gallbladder sludge Instructions Patient Instructions: DI for Constipation Discharge ED Provider: Natacha Claros General Adult HPI General Chief complaint: Nausea/Vomiting/Diarrhea Stated complaint: constipation Time Seen by Provider: 05/28/23 10:30 Mode of Arrival: Ambulatory Source of Information: Patient and Relative Limitations: No Limitations Description of Symptoms (Recalled from ER Triage Doc. by RN): Pts nephew states that he has chronic constipation. Family reports he has not had a normal BM x4d, however, this am he started having diarrhea. pt took an entire bottle of mag citrate yesterday without any relief of solid stool. Family reports the pt was seen 2wks ago by Winter Ren in [place]. Pt was given antibiotics, steroids, and an inhaler. Pt then came here for a CXR. History of Present Illness HPI narrative: This patient is a 77-year-old male with a remote history of alcohol use disorder, history of tobacco use disorder, history of unintentional weight loss, anemia, and chronic cough presenting with concern for pressure in his back and n o bowel movement for about a week. He states that he has been taking MiraLAX daily and drink a whole bottle of magnesium citrate yesterday without any relief. He does have a history of chronic constipation as well as a history of multiple prior abdominal surgeries. He notes that many many decades ago, he had extensive stomach and colon resection. He also had a cholecystectomy. Of note, he was seen by his primary care provider 05/23/23 in outpatient clinic and was diagnosed with sinusitis and pneumonia. He was prescribed cefdinir, prednisone, and an albuterol inhaler. He states that he is feeling okay. Family expresses concern that he has something chronic ongoing with his lungs. I independently reviewed prior x-ray obtained by his primary care provider, which was shot 05/25/2023. I also reviewed prior labs. Labs are reassuring, but x-ray per radiology read was concerning for scarring versus tiny pneumothorax. He denies any significant chest pain or shortness of breath. Related Data Previous Rx's Medication Instructions Recorded albuterol sulfate 90 mcg/actuation 2 puff inhalation Q4-6H PRN 05/23/23 aerosol inhaler shortness of breath or wheezing #8.5 grams cefdinir 300 mg capsule 300 mg PO BID #20 caps 05/23/23 prednisone 20 mg tablet 20 mg PO .COMPLEX #15 tabs 05/23/23 lactulose 10 gram/15 mL oral 15 ml PO BID PRN constipation #473 05/28/23 solution mL sennosides 8.6 mg tablet (senna) 8.6 mg PO HS #30 tabs 05/28/23 Allergies Allergy/AdvReac Type Severity Reaction Status Date / Time No Known Allergies Allergy Verified 05/28/23 10:48 [facility] Disclaimer: The information contained in this section may have been updated after the patient was seen, as this information can be updated by other users. Medical History Alcohol use disorder Anemia Cigarette nicotine dependence Cough Decreased breath sounds of both lungs Hip fracture Hyponatremia RBBB (right bundle branch block with left anterior fascicular block) Tobacco use disorder, continuous Weight loss Surgical History History of cataract surgery (~2018) Social History Smoking Status: Current every day smoker tobacco type: cigarettes packs per day: 1 second hand exposure: Yes alcohol intake: current counseling provided: none substance use type: denies use current occupational status: other Travel in the last 8 weeks: None household members: none housing: house caffeine: Yes ROS Obtained: Yes All systems reviewed & no additional complaints except as documented Physical Exam General General appearance: alert and in no apparent distress Comment: Nontoxic-appearing Head Head exam: atraumatic and normocephalic Eye Eye exam: Present normal appearance, PERRL and EOMI ENT ENT exam: Present normal exam, normal oropharynx, mucous membranes moist and nor mal external ear exam Neck Neck exam: Present normal inspection, full ROM and trachea midline; Absent tenderness Chest Chest inspection: Present normal inspection and symmetric chest wall rise; Absent tenderness Respiratory Respiratory exam: Present normal lung sounds bilaterally; Absent respiratory distress, wheezes, stridor or accessory muscle use Cardiovascular Cardiovascular exam: Present regular rate and normal rhythm Abdominal Exam Abdominal exam: Present distention (Mild); Absent tenderness, guarding, rebound or rigidity Extremities Exam Extremities exam: Present normal inspection, full ROM and normal capillary refill; Absent tenderness or edema Back Exam Back exam: Present normal inspection and full ROM; Absent tenderness Neurological Exam Neurological exam: Present alert, oriented X3, CN II-XII intact and normal gait; Absent motor sensory deficit Psychiatric Psychiatric exam: Present normal affect and normal mood Skin Skin exam: Present warm and dry Medical Decision Making Medical Records Medical records reviewed: Yes I reviewed the patient's medical records. Triston Inquiry Pt receiving controlled substance: No Vital Signs: 05/28/23 10:41 05/28/23 10:58 05/28/23 11:30 Temperature 97.7 F Temperature Source Oral Pulse Rate 67 67 Pulse Rate [Left] 64 Respiratory Rate 18 Blood Pressure 140/83 133/78 Blood Pressure [Right Arm] 156/94 H Blood Pressure Mean 102 Blood Pressure Mean [Right Arm] 114 Blood Pressure Source [Right Arm] Automatic Cuff Blood Pressure Position [Right Arm] Sitting 02 Sat by Pulse Oximetry 97 97 97 Oxygen Delivery Method Room Air 05/28/23 12:31 05/28/23 14:01 Temperature 98 F Temperature Source Pulse Rate 59 L 63 Pulse Rate [Left] Respiratory Rate 16 Blood Pressure 163/93 H 157/90 H Blood Pressure [Right Arm] Blood Pressure Mean 116 Blood Pressure Mean [Right Arm] Blood Pressure Source [Right Arm] Blood Pressure Position [Right Arm] 02 Sat by Pulse Oximetry 97 Oxygen Delivery Method Room Air Lab Data Lab results reviewed: Yes I reviewed the patient's lab results. Lab Results 05/28/23 10:42: WBC 9.5, RBC 3.91 L, Hgb 12.4 L, Hct 39.6 L, MCV 101.2 H, MCH 3 1.7 H, MCHC 31.3 L, RDW 15.6, Plt Count 302, MPV 7.8, Neut % (Auto) 84.8 H, Lymph % (Auto) 6.8 L, [place] % (Auto) 7.1, Eos % (Auto) 0.8, Baso % (Auto) 0.5, Neut # (Auto) 8.1 H, Lymph # (Auto) 0.6 L, [place] # (Auto) 0.7, Eos # (Auto) 0.1, Baso # (Auto) 0.0, Sodium 137, Potassium 4.9, Chloride 99, Carbon Dioxide 34 H, Anion Gap 8.9, BUN 27 H, Creatinine 1.00, Estimated Creat Clear 45, Estimated GFR 72, Est GFR ( Amer) 87, Glucose 121 H, Calcium 9.0, Total Bilirubin 0.7, AST 43, ALT 33, Alkaline Phosphatase 193 H, Total Protein 7.2, Albumin 4.0, Globulin 3.2, Albumin/Globulin Ratio 1.3, Lipase 65 05/28/23 12:34: Urine Color Yellow, Urine Appearance Clear, Urine pH 7.5, Ur Specific [place] 1.020, Urine Protein Negative, Urine Glucose (UA) Negative, U rine Ketones Negative, Urine Blood Negative, Urine Nitrate Negative, Urine Bilirubin Negative, Urine Urobilinogen 0.2, Ur Leukocyte Esterase Negative, Urine RBC None, Urine WBC Occasional, Ur Squamous Epith Cells Occasional, Urine Bacteria Trace 05/28/23 10:42 05/28/23 10:42 Orders (Tests/Meds): ED MEDICATIONS Discontinued Medications Generic Name Dose Route Start Last Admin Trade Name Freq PRN Reason Stop Dose Admin Iopamidol 100 ml 05/28/23 12:05 05/28/23 12:07 Iopamidol-370 (76%);100ml Bottle IV 05/28/23 12:06 100 ml ONCE ONE Administration Mineral Oil 133 ml 05/28/23 12:30 05/28/23 12:52 Mineral Oil Enema 133ml RC 05/28/23 12:31 133 ml ONCE ONE Administration Sodium Chloride 10 ml 05/28/23 10:51 Sodium Chloride 0.9% 10ml Flush Syringe IV 06/27/23 10:50 NEEDED PRN Maintain IV Site Sodium Chloride 50 ml 05/28/23 12:05 05/28/23 12:07 0.9 % Sodium Chloride 50 Ml Vial IV 05/28/23 12:06 50 ml ONCE ONE Administration Sodium Chloride 10 ml 05/28/23 12:05 05/28/23 12:07 Sodium Chloride 0.9% 10ml Syr (Rad Only) IV 06/27/23 12:04 10 ml NEEDED PRN Administration Maintain IV Site ORDERS Category Date Time Status CT abdomen pelvis w con Stat Cat Scan 05/28/23 10:[address] angio chest PE protocol Stat Cat Scan 05/28/23 10:53 Completed Complete Blood Count Auto Diff Stat Lab 05/28/23 10:42 Completed Comprehensive Metabolic Panel Stat Lab 05/28/23 10:42 Completed Lipase Stat Lab 05/28/23 10:42 Completed Urinalysis and Microscopic Stat Lab 05/28/23 12:34 Completed Medical Decision Narrative: In summary, this patient is a 77-year-old male presenting to the Emergency Department for evaluation of constipation and inability to have a bowel movement for the last week. Differential diagnoses considered include but are not limited to constipation, bowel obstruction, fecal impaction. Family also expresses concern that something could be wrong with his lungs given abnormal x-ray with PCP. Ruling out the most morbid conditions drove assessment. On exam, the patient is nontoxic-appearing with benign cardiopulmonary and abdominal exams. Workup included CBC, CMP, lipase, urinalysis, CT abdomen and pelvis with IV contrast. Given his abnormal x-ray imaging could not exclude pneumothorax, CT of the chest was also ordered. I independently interpreted CT scan prior to the radiologist read and noted large stool burden without obvious obstructive pattern, no pneumothorax, and no significant ammonia. Please see their read for final interpretation. I did note the scarring and cavitary lesions, which I notified family and the patient of. labs were obtained that demonstrated no acutely concerning abnormalities, as they are around his baseline. Patient was given an enema here in the emergency department without good success. He does not have a lot of distal stool burden, so I am not surprised. I do not feel that manual disimpaction is indicated given he does not have rectal stool burden. At this time, feel the patient is appropriate for discharge to try an aggressive regimen with lactulose and senna. He was given prescriptions for these, instructions for use, instructions for close patient follow-up, and instructions for strict return precautions. He was discharged in stable condition after all questions were answered. Critical Care Critical Care Time Critical Care Time: No
[2023-05-28 11:06] LABS: Alanine Aminotransferase 33 U/L (12-78); Albumin/Globulin Ratio 1.3 (1.1-1.8); Alkaline Phosphatase 193 U/L (38-126); Anion Gap 8.9 mEq/L (5-15); Aspartate Amino Transferase 43 U/L (17-59); Bilirubin,Total 0.7 mg/dl (0.2-1.3); Blood Urea Nitrogen 27 mg/dl (9-20); Carbon Dioxide 34 mmol/L (22.0-30.0); Chloride 99 mmol/L (98-107); Creatinine Clearance Estimated 45 mL/min (50-200); Estimated Glomerular Filt Rate 72 ml/min (>60); GFR (African American) 87 ML/MIN (>60); Globulin 3.2 g/dL (1.3-3.2); Glucose 121 mg/dl (74-100); Lipase 65 U/L (23-300); Potassium 4.9 mmoL/L (3.5-5.1); Sodium 137 mmol/L (136-145); Total Protein,Serum 7.2 g/dl (6.3-8.2)
[2023-05-28 11:15] LABS: Basophils % 0.5 % (0.1-2.0); Eosinophils # 0.1 K/mm3 (0.0-0.4); Eosinophils % 0.8 % (0.1-12.0); Hematocrit 39.6 % (42.0-52.0); Hemoglobin 12.4 g/dL (14.1-18.0); Lymphocytes # 0.6 K/mm3 (0.7-4.5); Lymphocytes % 6.8 % (10-50); Mean Corpuscular HGB Conc 31.3 g/dL (31.8-35.4); Mean Corpuscular Hemoglobin 31.7 pg (27.0-31.2); Mean Corpuscular Volume 101.2 fl (80-94); Mean Platelet Volume 7.8 fl (7.4-10.4); Monocytes # 0.7 K/mm3 (0.1-1.0); Monocytes % 7.1 % (1.7-9.3); Neutrophils # 8.1 K/mm3 (1.8-7.8); Neutrophils % 84.8 % (37.0-80.0); Platelet Count 302 K/mm3 (142-424); Red Blood Count 3.91 M/mm3 (4.60-6.20); Red Cell Distribution Width 15.6 % (11.5-17.5); White Blood Count 9.5 K/mm3 (4.8-10.8)
[2023-05-28 11:30] VITALS: BP 133/78; PULSE 67; O2SAT 97
[2023-05-28] MEDS: SODIUM CHLORIDE 0.9% 10ML SYR (RAD ONLY) 10 ML IV (12:07)
[2023-05-28] MEDS: IOPAMIDOL-370 (76%);100ML BOTTLE 100 ML IV (12:07)
[2023-05-28] MEDS: 0.9 % SODIUM CHLORIDE 50 ML VIAL IV (12:07)
[2023-05-28 12:31] VITALS: BP 163/93; PULSE 59; O2SAT 97
--- NOTE | 2023-05-28 12:32 | PC.NURSE ---
Pt resting in bed. No needs voiced at this time. Call light remains within reach.
[2023-05-28 12:40] LABS: Appearance,Urine CLEAR (Clear); Bilirubin,Urine Negative (Negative); Blood, Urine Negative (Negative); Color,Urine YELLOW (Yellow); Glucose,Urine (UA) Negative (Negative); Ketones,Urine Negative (Negative); Leukocyte Esterase,Urine Negative (Negative); Microscopic, Urine URINE MICROSCOPIC (MICROSCOPIC); Nitrate,Urine Negative (Negative); PH,Urine 7.5 (5.0-8.5); Protein,Urine Negative (Negative); Urobilinogen,Urine 0.2 EU/dl (0.2)
[2023-05-28] MEDS: MINERAL OIL ENEMA 133ML 133 ML RC (12:52)
[2023-05-28 13:19] LABS: Bacteria,Urine Trace /lpf; Squamous Epithelial Cell,Urine Occasional #/hpf (0-5); WBC,Urine Occasional #/hpf (0-3)
[2023-05-28 14:01] VITALS: BP 157/90; PULSE 63; RESP 16; TEMP 36.6
== END 2023-05-28 14:06 | disposition home or self-care (01) ==
PROVIDERS: Emergency Provider Emergency Medicine; PCP Nurse Practitioner
DX: K59.04 Chronic idiopathic constipation (principal); M54.9 Dorsalgia, unspecified; J84.89 Other specified interstitial pulmonary diseases; K82.8 Other specified diseases of gallbladder; F17.210 Nicotine dependence, cigarettes, uncomplicated; R19.7 Diarrhea, unspecified
CPT/HCPCS: 71275; 74177; 80053; 81001; 83690; 85025; 99285; Q9967

== ENCOUNTER 2023-05-31 18:37 | Observation (INO) | payer MEDICARE, SELFPAY ==
[2023-05-31] VITALS (7 sets, daily range): BP systolic 128–155; BP diastolic 86–98; PULSE 63–79; RESP 17–24; TEMP 36.3–36.6; O2SAT 94–97; BMI 16.9; BMI 17.9
--- NOTE | 2023-05-31 18:58 | CT_ITS ---
PROCEDURE INFORMATION: Exam: CT Abdomen And Pelvis With Contrast Exam date and time: 05/31/2023 7:33 PM Age: 77 years old Clinical indication: Other: No bm x 2 wks; Additional info: No bm x 2 weeks despite lactulose/miralax/senna TECHNIQUE: Imaging protocol: Computed tomography of the abdomen and pelvis with contrast. Radiation optimization: All CT scans at this facility use at least one of these dose optimization techniques: automated exposure control; mA and/or kV adjustment per patient size (includes targeted exams where dose is matched to clinical indication); or iterative reconstruction. Contrast material: ISOVUE; Contrast volume: 75 ml; Contrast route: IV; COMPARISON: CT ABDOMEN PELVIS W CON 05/28/2023 11:50 AM FINDINGS: Liver: Normal. No mass. Gallbladder and bile ducts: Sludge is noted within the gallbladder. Common bile duct measures up to 9 mm. Pancreas: Diffuse ductal dilation. Stable from previous. Spleen: Normal. No splenomegaly. Adrenal glands: Normal. No mass. Kidneys and ureters: Normal. No hydronephrosis. Stomach and bowel: Large amount of stool is noted throughout the colon. No colitis or bowel obstruction Appendix: No evidence of appendicitis. Intraperitoneal space: Normal. No significant fluid collection. Vasculature: Moderate atherosclerotic disease. 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 No enlarged lymph nodes. Urinary bladder: Calcifications noted within the urinary bladder. Reproductive: Unremarkable as visualized. Bones/joints: Postoperative changes of the right proximal femur. Moderate degenerative changes of the thoracic spine with several compression deformities present, ages are indeterminate. Soft tissues: Soft tissues are normal. IMPRESSION: 1. Sludge is noted within the gallbladder. 2. Large amount of stool is noted throughout the colon. No bowel obstruction or colitis 3. Common bile duct measures up to 9 mm. Severe intrahepatic biliary ductal dilatation. Stable findings from previous study. No calcified stones are identified. Pancreatic ductal dilatation. 4. Calcifications noted within the urinary bladder.
[2023-05-31 19:22] LABS: Basophils % 0.3 % (0.1-2.0); Eosinophils # 0.2 K/mm3 (0.0-0.4); Eosinophils % 2.2 % (0.1-12.0); Lymphocytes # 0.9 K/mm3 (0.7-4.5); Lymphocytes % 13.5 % (10-50); Mean Corpuscular HGB Conc 32.3 g/dL (31.8-35.4); Mean Corpuscular Hemoglobin 32.4 pg (27.0-31.2); Mean Corpuscular Volume 100.2 fl (80-94); Monocytes # 0.4 K/mm3 (0.1-1.0); Monocytes % 6.3 % (1.7-9.3); Neutrophils # 5.3 K/mm3 (1.8-7.8); Neutrophils % 77.7 % (37.0-80.0); Platelet Count 299 K/mm3 (142-424); Red Blood Count 3.69 M/mm3 (4.60-6.20); Red Cell Distribution Width 15.6 % (11.5-17.5); White Blood Count 6.8 K/mm3 (4.8-10.8)
--- NOTE | 2023-05-31 19:23 | ED_ITS ---
Discharge Plan Disposition Patient Disposition: Admitted Clinical Impressions Clinical Impression: Acute constipation Discharge ED Provider: Natacha Claros General Adult HPI General Chief complaint: Recheck/Abnormal Lab/Rx Stated complaint: constipation, x 9 days Time Seen by Provider: 05/31/23 18:42 Mode of Arrival: Wheelchair Source of Information: Patient Limitations: No Limitations Description of Symptoms (Recalled from ER Triage Doc. by RN): Patient reports constipation for 9 days. States he was here last weekend for the same thing and followed up with his pcp yesterday. Reports taking multiple laxatives with no relief of his symptoms. Reports the upper part of his abdomen being hard. Denies any pain at this time. History of Present Illness HPI narrative: This patient is a 77-year-old male with a history of tobacco dependence presenting to the emergency department for evaluation with concern for continued constipation. Patient has not had a good bowel movement in approximately 10 days at this time. I evaluated the patient here 05/28/2023 for similar issues, at which point CT scan demonstrated moderate to large stool burden without obstruct vashti process. He had already been on MiraLAX and magnesium citrate at home, so I prescribed him lactulose and senna. He picked those up and has been compliant, however he still had not been having a bowel movement. Given this, he escalated his regimen at home himself, giving himself 5 enemas today alone. He also saw his primary care provider yesterday who prescribed him suppositories. He has a lso been drinking a ton of prune juice, but he has not been having bowel movements. He is having encopresis with passage of small amounts of liquid stool in his underwear. He is still passing gas. No fevers, vomiting, or other concerns, but he does have some upper abdominal bloating which was not present previously. Related Data Home Medications Medication Instructions Recorded Confirmed lactulose 10 gram/15 mL oral 15 ml PO BIDP PRN Constipation 05/31/23 05/31/23 solution sennosides 8.6 mg tablet (Senna 8.6 mg PO HS 05/31/23 05/31/23 Laxative) Allergies Allergy/AdvReac Type Severity Reaction Status Date / Time No Known Allergies Allergy Verified 05/31/23 21:29 [facility] Disclaimer: The information contained in this section may have been updated after the patient was seen, as this information can be updated by other users. Medical History Alcohol use disorder Anemia Cigarette nicotine dependence Cough Decreased breath sounds of both lungs Hip fracture Hyponatremia RBBB (right bundle branch block with left anterior fascicular block) Tobacco use disorder, continuous Weight loss Surgical History History of cataract surgery (~2019) History of intestinal surgery Social History Smoking Status: Current every day smoker tobacco type: cigarettes packs per day: 1 second hand exposure: Yes alcohol intake: current counseling provided: none substance use type: denies use current occupational status: retired and other Travel in the last 8 weeks: None household members: none housing: house caffeine: Yes ROS Obtained: Yes All systems reviewed & no additional complaints except as documented Physical Exam General General appearance: alert and in no apparent distress Head Head exam: atraumatic and normocephalic Eye Eye exam: Present normal appearance, PERRL and EOMI ENT ENT exam: Present normal exam, normal oropharynx, mucous membranes moist and normal external ear exam Neck Neck exam: Present normal inspection, full ROM and trachea midline; Absent tenderness Chest Chest inspection: Present normal inspection and symmetric chest wall rise; Absent tenderness Respiratory Respiratory exam: Present normal lung sounds bilaterally; Absent respiratory distress, wheezes, stridor or accessory muscle use Cardiovascular Cardiovascular exam: Present regular rate and normal rhythm Abdominal Exam Abdominal exam: Present soft and distention (Mild); Absent tenderness, guarding, rebound or rigidity Extremities Exam Extremities exam: Present normal inspection, full ROM and normal capillary refill; Absent tenderness or edema Back Exam Back exam: Present normal inspection and full ROM; Absent tenderness Neurological Exam Neurological exam: Present alert, oriented X3, CN II-XII intact and normal gait; Absent motor sensory deficit Psychiatric Psychiatric exam: Present normal affect and normal mood Skin Skin exam: Present warm and dry Medical Decision Making Medical Records Medical records reviewed: Yes I reviewed the patient's medical records. Triston Inquiry Pt receiving controlled substance: No Vital Signs: 05/31/23 18:39 05/31/23 19:01 05/31/23 20:00 Temperature 97.9 F Temperature Source Oral Pulse Rate 71 64 Pulse Rate [Radial] 79 Respiratory Rate 18 18 Blood Pressure 131/86 132/86 Blood Pressure [Right Arm] 134/94 H Blood Pressure Mean 96 Blood Pressure Mean [Right Arm] 107 Blood Pressure Source Blood Pressure Source [Right Arm] Automatic Cuff Blood Pressure Position Blood Pressure Position [Right Arm] Sitting 02 Sat by Pulse Oximetry 96 94 L 97 Oxygen Delivery Method Room Air Room Air 05/31/23 20:30 05/31/23 21:16 05/31/23 21:19 Temperature 97.9 F 97.9 F Temperature Source Oral Oral Pulse Rate 63 63 Pulse Rate [Radial] 63 Respiratory Rate 18 17 17 Blood Pressure 128/87 137/90 Blood Pressure [Right Arm] 137/90 Blood Pressure Mean Blood Pressure Mean [Right Arm] 105 Blood Pressure Source Automatic Cuff Blood Pressure Source [Right Arm] Blood Pressure Position Supine Blood Pressure Position [Right Arm] 02 Sat by Pulse Oximetry 97 97 Oxygen Delivery Method Room Air Room Air Lab Data Lab results reviewed: Yes I reviewed the patient's lab results. Lab Results 05/31/23 19:12: WBC 6.8, RBC 3.69 L, Hgb 12.0 L, Hct 37.0 L, MCV 100.2 H, MCH 32.4 H, MCHC 32.3, RDW 15.6, Plt Count 299, MPV 7.0 L, Neut % (Auto) 77.7, Lymph % (Auto) 13.5, Cecil % (Auto) 6.3, Eos % (Auto) 2.2, Baso % (Auto) 0.3, Neut # (Auto) 5.3, Lymph # (Auto) 0.9, Cecil # (Auto) 0.4, Eos # (Auto) 0.2, Baso # (Auto) 0.0, Sodium 132 L, Potassium 4.2, Chloride 98, Carbon Dioxide 31 H, Anion Gap 7.2, BUN 23 H, Creatinine 0.90, Estimated Creat Clear 45, Estimated GFR 81, Est GFR ( Amer) 98, Glucose 106 H, Lactate 0.9, Calcium 8.7, Total Bilirubin 0.4, AST 44, ALT 30, Alkaline Phosphatase 168 H, Total Protein 6.6, Albumin 3.7, Globulin 2.9, Albumin/Globulin Ratio 1.3, Lipase 50 05/31/23 19:12 05/31/23 19:12 Orders (Tests/Meds): ED MEDICATIONS Generic Name Dose Route Start Last Admin Trade Name Freq PRN Reason Stop Dose Admin Lactated Ringer's 1,000 mls @ 125 mls/hr 05/31/23 22:15 05/31/23 22:28 Lactated Ringer's 1000 Ml Bag IV 06/30/23 22:14 125 mls/hr .Q8H LACHELLE Administration Nicotine 21 mg 05/31/23 22:48 05/31/23 22:57 Nicotine 21mg/24hr Patch TD 06/30/23 22:47 21 mg DAILYP PRN Administration Nicotine Cravings Sodium Chloride 10 ml 05/31/23 22:07 Sodium Chloride 0.9% 10ml Flush Syringe IV 06/30/23 22:06 NEEDED PRN Maintain IV Site Discontinued Medications Generic Name Dose Route Start Last Admin Trade Name Freq PRN Reason Stop Dose Admin Iopamidol 75 ml 05/31/23 19:35 05/31/23 19:36 Iopamidol-370 (76%);100ml Bottle IV 05/31/23 19:36 75 ml ONCE ONE Administration Sodium Chloride 10 ml 05/31/23 19:35 05/31/23 19:36 Sodium Chloride 0.9% 10ml Syr (Rad Only) IV 05/31/23 19:36 10 ml ONCE ONE Administration ORDERS Category Date Time Status CT abdomen pelvis w con Stat Cat Scan 05/31/23 18:58 Completed Basic Metabolic Panel AMLAB Lab 06/01/23 06:00 Ordered Complete Blood Count Auto Diff AMLAB Lab 06/01/23 06:00 Ordered Complete Blood Count Auto Diff Stat Lab 05/31/23 19:12 Completed Comprehensive Metabolic Panel Stat Lab 05/31/23 19:12 Completed Lactic Acid Stat Lab 05/31/23 19:12 Completed Lipase Stat Lab 05/31/23 19:12 Completed Medical Decision Narrative: In summary, this patient is a 77-year-old male presenting to the Emergency Department for evaluation of continued constipation despite multiple recent evaluations and aggressive bowel regimen at home. Differential diagnoses considered include but are not limited to constipation, bowel obstruction, bowel perforation, fecal impaction, encopresis. Ruling out the most morbid conditions drove assessment. On exam, the patient has mild abdominal distention but otherwise no significant tenderness or other concerns. Vitals are reassuring on cardiac telemetry. Workup included CBC, CMP, and CT abdomen and pelvis with IV contrast. I independently interpreted CT scan prior to the radiologist read and noted significantly increased colonic dilatation and stool burden from prior CT scan. Please see their read for final interpretation. Labs were obtained that demonstrated no obvious acutely concerning abnormalities at this time. After multiple discussions with the patient and his family, we do not feel the patient is appropriate for discharge given that he has failed aggressive outpatient bowel regimen. Given this, I had an direct discussion with the hospitalist who agreed to admit the patient for further evaluation and management. Patient was admitted in stable condition. Critical Care Critical Care Time Critical Care Time: No
--- NOTE | 2023-05-31 19:25 | PC.NURSE ---
patient gone to CT at this time.
--- NOTE | 2023-05-31 19:32 | PC.NURSE ---
patient back in room at this time.
[2023-05-31 19:33] LABS: Chloride 98 mmol/L (98-107)
[2023-05-31 19:34] LABS: Potassium 4.2 mmoL/L (3.5-5.1); Sodium 132 mmol/L (136-145)
[2023-05-31 19:36] LABS: Alanine Aminotransferase 30 U/L (12-78); Alkaline Phosphatase 168 U/L (38-126); Aspartate Amino Transferase 44 U/L (17-59); Bilirubin,Total 0.4 mg/dl (0.2-1.3); Blood Urea Nitrogen 23 mg/dl (9-20); Creatinine Clearance Estimated 45 mL/min (50-200); Estimated Glomerular Filt Rate 81 ml/min (>60); GFR (African American) 98 ML/MIN (>60)
[2023-05-31] MEDS: IOPAMIDOL-370 (76%);100ML BOTTLE 75 ML IV (19:36)
[2023-05-31] MEDS: SODIUM CHLORIDE 0.9% 10ML SYR (RAD ONLY) 10 ML IV (19:36)
[2023-05-31 19:37] LABS: Albumin Level 3.7 g/dl (3.5-5.0); Albumin/Globulin Ratio 1.3 (1.1-1.8); Anion Gap 7.2 mEq/L (5-15); Calcium 8.7 mg/dl (8.4-10.2); Carbon Dioxide 31 mmol/L (22.0-30.0); Globulin 2.9 g/dL (1.3-3.2); Glucose 106 mg/dl (74-100); Lipase 50 U/L (23-300); Total Protein,Serum 6.6 g/dl (6.3-8.2)
[2023-05-31 19:47] LABS: Lactic Acid 0.9 mmol/L (0.7-2.1)
--- NOTE | 2023-05-31 21:01 | PC.NURSE ---
on phone with hospitalist. 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
--- NOTE | 2023-05-31 21:01 | PC.NURSE ---
House notified for admission
--- NOTE | 2023-05-31 21:05 | PC.NURSE ---
Attempted to call report. Nurse asked to call back for report
--- NOTE | 2023-05-31 21:15 | PC.NURSE ---
Report called to GEORGES Oliveira. She will notify transport patient is ready
--- NOTE | 2023-05-31 22:11 | EXP.HP ---
History of Present Illness *Admission Date: 05/31/23 *Reason for visit:: consitpation *History of present illness: 77 year old male presented to the [facility] ED with c/o constipation that has been present for nine days. PMHX tobacco use disorder, history of unintentional weight loss, anemia, and chronic cough. He was seen on 05/28/[address] scan revealed large amounts of stool burden. He was discharged home with lactulose and senna. He followed up with his PCP on 05/30/23 reporting he still had not had a bowel movement. The PCP added mirlax to the bowel regimen. He denies any abdominal pain, chest pain, N/V. He is very pleasant and is requesting to have an enema. His CTA of abdomen tonight revealed no obstruction or colitis. There is large amounts of stool throughout the colon. The ED physician consulted the hospitalist team for further medical management. I admitted the pt to the medical floor. [facility] Disclaimer: The information contained in this section may have been updated after the patient was seen, as this information can be updated by other users. Medical History Alcohol use disorder Anemia Cigarette nicotine dependence Cough Decreased breath sounds of both lungs Hip fracture Hyponatremia RBBB (right bundle branch block with left anterior fascicular block) Tobacco use disorder, continuous Weight loss Surgical History History of cataract surgery (~2019) History of intestinal surgery Social History Smoking Status: Current every day smoker tobacco type: cigarettes packs per day: 1 second hand exposure: Yes alcohol intake: current counseling provided: none substance use type: denies use current occupational status: retired and other Travel in the last 8 weeks: None household members: none housing: house caffeine: Yes Review of Systems Review of Systems Review of systems:: pertinent systems reviewed and negative unless documented below *Gastrointestinal Gastrointestinal: Reports constipation Meds Home Medications and Allergies Home Medications Medication Instructions Recorded Confirmed Type albuterol sulfate 90 mcg/actuation 2 puff inhalation Q4-6H PRN 06/01/23 06/01/23 History aerosol inhaler Shortness Of Breath Or Wheezing polyethylene glycol 3350 17 gram 17 g PO DAILY 30 days #30 ea 06/01/23 Rx oral powder packet (Miralax) sennosides 8.6 mg-docusate sodium 1 tab PO HS 30 days #30 tabs 06/01/23 Rx 50 mg tablet (Stimulant Laxative Plus) New Prescriptions to Start Prescriptions: polyethylene glycol 3350 [Miralax] Sergey Farah sennosides-docusate sodium [Stimulant Laxative Plus] Sergey Farah Allergies Allergy/AdvReac Type Severity Reaction Status Date / Time No Known Allergies Allergy Verified 05/31/23 21:29 Exam Data for Last 24 hours Vital signs and Labs for Last 24 Hours: Temp Pulse Resp BP Pulse Ox O2 Del Method 97.4 F L 74 24 155/98 H 97 Room Air 05/31/23 21:48 05/31/23 21:48 05/31/23 21:48 05/31/23 21:48 05/31/23 21:48 05/31/23 21:48 Laboratory Results - last 24 hr 05/31/23 19:12: WBC 6.8, RBC 3.69 L, Hgb 12.0 L, Hct 37.0 L, MCV 100.2 H, MCH 32.4 H, MCHC 32.3, RDW 15.6, Plt Count 299, MPV 7.0 L, Neut % (Auto) 77.7, Lymph % (Auto) 13.5, Hitchcock % (Auto) 6.3, Eos % (Auto) 2.2, Baso % (Auto) 0.3, Neut # (Auto) 5.3, Lymph # (Auto) 0.9, Hitchcock # (Auto) 0.4, Eos # (Auto) 0.2, Baso # (Auto) 0.0, Sodium 132 L, Potassium 4.2, Chloride 98, Carbon Dioxide 31 H, Anion Gap 7.2, BUN 23 H, Creatinine 0.90, Estimated Creat Clear 45, Estimated GFR 81, Est GFR ( Amer) 98, Glucose 106 H, Lactate 0.9, Calcium 8.7, Total Bilirubin 0.4, AST 44, ALT 30, Alkaline Phosphatase 168 H, Total Protein 6.6, Albumin 3.7, Globulin 2.9, Albumin/Globulin Ratio 1.3, Lipase 50 I & O for Last 24 hours: Intake & Output 05/28/23 05/29/23 05/30/23 05/31/23 23:59 23:59 23:59 23:59 Weight 56.79 kg Constitutional Constitutional: no acute distress and thin *Routine HEENT Exam Head: Present normocephalic Eye: Present EOMI ENT: Present mucous membranes moist *Routine Neck Exam Neck: Present full ROM *Routine Respiratory Exam Respiratory: Present symmetric chest movement *Routine Cardiovascular Exam Cardiovascular: Present RRR *Routine Abdominal Exam Abdominal: Present soft, normoactive bowel sounds and surgical scars (prior ); Absent tenderness, distended or guarding *Routine Rectal Exam Rectal:: deferred *Routine Genitalia Exam Genitalia:: deferred Assessment and Plan *Assessment and plan (1) Constipation: Status: Acute Category: Medical Code(s): K59.00 - Constipation, unspecified (2) Hyponatremia: Status: Acute Category: Medical Code(s): E87.1 - Hypo-osmolality and hyponatremia (3) Tobacco use disorder, continuous: Status: Acute Category: Medical Code(s): F17.209 - Nicotine dependence, unspecified, with unspecified nicotine-induced disorders Plan 77 year old male presented to the [facility] ED with c/o constipation that has been present for nine days. PMHX tobacco use disorder, history of unintentional weight loss, anemia, and chronic cough. He was seen on 05/28/[address] scan revealed large amounts of stool burden. He was discharged home with lactulose and senna. He followed up with his PCP on 05/30/23 reporting he still had not had a bowel movement. The PCP added mirlax to the bowel regimen. He denies any abdominal pain, chest pain, N/V. He is very pleasant and is requesting to have an enema. His CTA of abdomen tonight revealed no obstruction or colitis. There is large amounts of stool throughout the colon. The ED physician consulted the hospitalist team for further medical management. I admitted the pt to the medical floor. CONSTIPATION HYPONATREMIA -CTA of abdomen reviewed and reveals no obstruction or colitis. There is large amounts of stool throughout the colon. -reports no pain medication use -history of chronic constipation -history of prior stomach and colon resection -Start soap suds enema -Recheck BMP in the morning -LR @ 125mL/hr TOBACCO USE DISORDER -nicotine patch reordered DNR NPO AT MIDNIGHT DVT: SCD Rounded on patient after nurse practitioner. Personally examined and interviewed patient. Agree with exam findings and care plan as documented.
[2023-05-31] MEDS: LACTATED RINGERS 1000ML 1,000 ML 125 ML IV (22:28)
[2023-05-31] MEDS: NICOTINE 21MG/24HR PATCH 21 MG TD (22:57)
[2023-06-01 04:00] VITALS: BP 143/80; PULSE 60; RESP 22; TEMP 36.6; O2SAT 96; BMI 17.9
[2023-06-01] MEDS: LACTATED RINGERS 1000ML 1,000 ML 125 ML IV ×2 (06:00→14:12)
--- NOTE | 2023-06-01 07:17 | HMH.PHAINT1 ---
Pharmacy Intervention Comments: Confirmed home medication list using external fill history and referenced office visit note from 05/30/23.
[2023-06-01 07:48] LABS: Basophils % 0.3 % (0.1-2.0); Eosinophils # 0.2 K/mm3 (0.0-0.4); Eosinophils % 2.7 % (0.1-12.0); Hematocrit 34.9 % (42.0-52.0); Hemoglobin 11.2 g/dL (14.1-18.0); Lymphocytes # 0.9 K/mm3 (0.7-4.5); Lymphocytes % 17.2 % (10-50); Mean Corpuscular HGB Conc 32.2 g/dL (31.8-35.4); Mean Corpuscular Hemoglobin 32.2 pg (27.0-31.2); Mean Platelet Volume 8.2 fl (7.4-10.4); Monocytes # 0.4 K/mm3 (0.1-1.0); Monocytes % 6.9 % (1.7-9.3); Neutrophils % 72.9 % (37.0-80.0); Platelet Count 287 K/mm3 (142-424); Red Blood Count 3.49 M/mm3 (4.60-6.20); Red Cell Distribution Width 15.7 % (11.5-17.5); White Blood Count 5.5 K/mm3 (4.8-10.8)
[2023-06-01 08:00] VITALS: BP 114/75; PULSE 71; RESP 18; TEMP 36.4; O2SAT 98
[2023-06-01] MEDS: SENNOSIDES 8.6MG/DOCUSATE 50MG TABLET 1 TAB PO (08:11)
[2023-06-01 08:14] LABS: Anion Gap 5.9 mEq/L (5-15); Blood Urea Nitrogen 20 mg/dl (9-20); Calcium 8.3 mg/dl (8.4-10.2); Carbon Dioxide 32 mmol/L (22.0-30.0); Chloride 99 mmol/L (98-107); Creatinine Clearance Estimated 48 mL/min (50-200); Estimated Glomerular Filt Rate 81 ml/min (>60); GFR (African American) 98 ML/MIN (>60); Glucose 77 mg/dl (74-100); Potassium 3.9 mmoL/L (3.5-5.1); Sodium 133 mmol/L (136-145)
[2023-06-01] MEDS: POLYETHYLENE GLYCOL 3350 17 GM PACKET PO ×3 (08:15→13:10)
--- NOTE | 2023-06-01 14:38 | P.DS_ITS ---
General Admission date:: 05/31/23 Discharge date: 06/01/23 HPI HPI HPI: 77 year old male presented to the [facility] ED with c/o constipation that has been present for nine days. PMHX tobacco use disorder, history of unintentional weight loss, anemia, and chronic cough. He was seen on 05/28/[address] scan revealed large amounts of stool burden. He was discharged home with lactulose and senna. He followed up with his PCP on 05/30/23 reporting he still had not had a bowel movement. The PCP added mirlax to the bowel regimen. He denies any abdominal pain, chest pain, N/V. He is very pleasant and is requesting to have an enema. His CTA of abdomen tonight revealed no obstruction or colitis. There is large amounts of stool throughout the colon. The ED physician consulted the hospitalist team for further medical management. I admitted the pt to the medical floor. Hospital Course Hospital Course Hospital Course: 77 year old male presented to the [facility] ED with c/o constipation that has been present for nine days. PMHX tobacco use disorder, history of unintentional weight loss, anemia, and chronic cough. He was seen on 05/28/[address] scan revealed large amounts of stool burden. He was discharged home with lactulose and senna. He followed up with his PCP on 05/30/23 reporting he still had not had a bowel movement. The PCP added mirlax to the bowel regimen. He denies any abdominal pain, chest pain, N/V. He is very pleasant and is requesting to have an enema. His CTA of abdomen tonight revealed no obstruction or colitis. There is moderate amount of stool and significant gaseous distention throughout the colon. The ED physician consulted the hospitalist team for further medical management. Patient initiated on bowel regimen, passing gas and feeling much better. Stable for discharge home to continue bowel regimen in the outpatient setting. Problems addressed as follows:. CONSTIPATION HYPONATREMIA -CTA of abdomen reviewed and reveals no obstruction or colitis. Moderate amount of stool with significant gaseous distention. Initiated on MiraLAX every 2 hours with docusate and senna. Passing gas and feeling better. Improvement in distention. After further review, patient does state that while he had not had a healthy bowel movement in 9 days, he did have a small loose stool yesterday. Given that he is feeling better, will continue bowel regimen at discharge. Discontinue lactulose due to its gaseous production. Continue docusate/senna daily and MiraLAX daily for goal 1-2 soft stools a day. Patient asymptomatic at time of discharge. Tolerating p.o. intake. Encouraged ambulation to promote bowel movements. Of note, sodium stable at 133 on morning of discharge. Asymptomatic. TOBACCO USE DISORDER: Nicotine patch during admission. Total time spent on discharge 32 minutes in counseling, documentation, chart review, and direct care with patient. Exam Data for Last 24 hours Vital signs and Labs for Last 24 Hours: Temp Pulse Resp BP Pulse Ox O2 Del Method 97.6 F 71 18 114/75 98 Room Air 06/01/23 08:00 06/01/23 08:00 06/01/23 08:00 06/01/23 08:00 06/01/23 08:00 06/01/23 13:14 Laboratory Results - last 24 hr 05/31/23 19:12: WBC 6.8, RBC 3.69 L, Hgb 12.0 L, Hct 37.0 L, MCV 100.2 H, MCH 32 .4 H, MCHC 32.3, RDW 15.6, Plt Count 299, MPV 7.0 L, Neut % (Auto) 77.7, Lymph % (Auto) 13.5, Webster % (Auto) 6.3, Eos % (Auto) 2.2, Baso % (Auto) 0.3, Neut # (Auto) 5.3, Lymph # (Auto) 0.9, Webster # (Auto) 0.4, Eos # (Auto) 0.2, Baso # (Auto) 0.0, Sodium 132 L, Potassium 4.2, Chloride 98, Carbon Dioxide 31 H, Anion Gap 7.2, BUN 23 H, Creatinine 0.90, Estimated Creat Clear 45, Estimated GFR 81, Est GFR ( Amer) 98, Glucose 106 H, Lactate 0.9, Calcium 8.7, Total Biliru bin 0.4, AST 44, ALT 30, Alkaline Phosphatase 168 H, Total Protein 6.6, Albumin 3.7, Globulin 2.9, Albumin/Globulin Ratio 1.3, Lipase 50 06/01/23 06:06: WBC 5.5, RBC 3.49 L, Hgb 11.2 L, Hct 34.9 L, MCV 100.0 H, MCH 32.2 H, MCHC 32.2, RDW 15.7, Plt Count 287, MPV 8.2, Neut % (Auto) 72.9, Lymph % (Auto) 17.2, Webster % (Auto) 6.9, Eos % (Auto) 2.7, Baso % (Auto) 0.3, Neut # (Auto) 4.0, Lymph # (Auto) 0.9, Webster # (Auto) 0.4, Eos # (Auto) 0.2, Baso # (Auto) 0.0, Sodium 133 L, Potassium 3.9, Chloride 99, Carbon Dioxide 32 H, Anion Gap 5.9, BUN 20, Creatinine 0.90, Estimated Creat Clear 48, Estimated GFR 81, Est GFR ( Amer) 98, Glucose 77 D, Calcium 8.3 L I & O for Last 24 hours: Intake & Output 05/29/23 05/30/23 05/31/23 06/01/23 23:59 23:59 23:59 23:59 Intake Total 1360 / 1360 Output Total 0 / 0 Balance 1360 / 1360 Weight 56.79 kg 56.79 kg Constitutional Constitutional: no acute distress, cachectic, chronically ill appearing and cooperative *Routine HEENT Exam Head: Present normocephalic Eye: Present EOMI and PERRL ENT: Present mucous membranes moist *Routine Neck Exam Neck: Present supple; Absent lymphadenopathy *Routine Respiratory Exam Respiratory: Present prolonged expiratory phase and rhonchi; Absent wheezes or crackles *Routine Cardiovascular Exam Cardiovascular: Present RRR *Routine Abdominal Exam Abdominal: Present soft, normoactive bowel sounds and distended; Absent tenderness, rebound or guarding *Routine Rectal Exam Patient deferred: visual exam *Routine Exam Patient deferred: penile exam *Routine Extremities Exam Extremities: Absent cyanosis, clubbing or edema Comments: thin *Routine Skin Exam Skin: Present warm; Absent rash *Routine Neurological Exam Neurological: Present alert, oriented X3 and moving all extremities; Absent altered mental status Results Data Completed and Pending Labs on day of discharge: Labs from last 24 hours 06/01/23 05/31/23 06:06 19:12 WBC 5.5 6.8 RBC 3.49 L 3.69 L Hgb 11.2 L 12.0 L Hct 34.9 L 37.0 L MCV 100.0 H 100.2 H MCH 32.2 H 32.4 H MCHC 32.2 32.3 RDW 15.7 15.6 Plt Count 287 299 MPV 8.2 7.0 L Neut % (Auto) 72.9 77.7 Lymph % (Auto) 17.2 13.5 Webster % (Auto) 6.9 6.3 Eos % (Auto) 2.7 2.2 Baso % (Auto) 0.3 0.3 Neut # (Auto) 4.0 5.3 Lymph # (Auto) 0.9 0.9 Webster # (Auto) 0.4 0.4 Eos # (Auto) 0.2 0.2 Baso # (Auto) 0.0 0.0 Sodium 133 L 132 L Potassium 3.9 4.2 Chloride 99 98 Carbon Dioxide 32 H 31 H Anion Gap 5.9 7.2 BUN 20 23 H Creatinine 0.90 0.90 Estimated Creat Clear 48 45 Estimated GFR 81 81 Est GFR ( Amer) 98 98 Glucose 77 D 106 H Lactate 0.9 Calcium 8.3 L 8.7 Total Bilirubin 0.4 AST 44 ALT 30 Alkaline Phosphatase 168 H Total Protein 6.6 Albumin 3.7 Globulin 2.9 Albumin/Globulin Ratio 1.3 Lipase 50 DS: Diagnosis Discharge Diagnosis (1) Constipation: Status: Acute Code(s): K59.00 - Constipation, unspecified (2) Hyponatremia: Status: Acute Code(s): E87.1 - Hypo-osmolality and hyponatremia (3) Tobacco use disorder, continuous: Status: Acute Code(s): F17.209 - Nicotine dependence, unspecified, with unspecified nicotine-induced disorders Meds Home Medications and Allergies Home Medications Medication Instructions Recorded Confirmed Type albuterol sulfate 90 mcg/actuation 2 puff inhalation Q4-6H PRN 06/01/23 06/01/23 History aerosol inhaler Shortness Of Breath Or Wheezing polyethylene glycol 3350 17 gram 17 g PO DAILY 30 days #30 ea 06/01/23 Rx oral powder packet (Miralax) sennosides 8.6 mg-docusate sodium 1 tab PO HS 30 days #30 tabs 06/01/23 Rx 50 mg tablet (Stimulant Laxative Plus) New Prescriptions to Start Prescriptions: polyethylene glycol 3350 [Miralax] Sergey Farah sennosides-docusate sodium [Stimulant Laxative Plus] Sergey Farah Allergies Allergy/AdvReac Type Severity Reaction Status Date / Time No Known Allergies Allergy Verified 05/31/23 21:29 Discharge Plan Disposition Patient Disposition: Home, Self-Care Condition: Fair Follow up Plan Follow up with: Winter Ren APRN [Primary Care Provider] - 06/08/23 10:15 am Prescriptions/Medication Reconciliation: New polyethylene glycol 3350 [Miralax] 17 gram Powder In Packet 17 g PO DAILY 30 Days Qty: 30 0RF sennosides-docusate sodium [Stimulant Laxative Plus] 8.6-50 mg Tablet 1 tab PO HS 30 Days Qty: 30 0RF Continued albuterol sulfate 90 mcg/actuation HFA aerosol inhaler 2 puff INHALATION Q4-6H PRN (Reason: Shortness Of Breath Or Wheezing) Patient Comments: INHALE 2 PUFFS EVERY 4 TO 6 HOURS INTO THE LUNGS NEEDED FOR SHORTNESS OF BREATH OR FOR WHEEZE Discontinued sennosides [Senna Laxative] 8.6 mg tablet 8.6 mg PO HS Patient Comments: TAKE 1 TABLET BY MOUTH AT BEDTIME NIGHTLY lactulose 10 gram/15 mL solution 15 ml PO BIDP PRN (Reason: Constipation) Patient Comments: TAKE 15 ML BY MOUTH TWICE A DAY NEEDED FOR CONSTIPATION Problem Reconciliation Problems Reviewed?: Yes Patient Discharge Instructions ACTIVITY: Continue current activity DIET: continue same diet Patient Instructions: DI for Constipation Providers Primary Care Provider: Winter Ren Admit Provider: Sergey Farah Attending Provider: Sergey Farah
--- NOTE | 2023-06-02 14:57 | CARE MANAGER ---
Contacted patient and he is doing well. he states he has had 2 BMs since yesterday and has less swelling in stomach. He denies questions or concerns and is aware of follow up appointments. GEORGES Roper
== END 2023-06-01 15:26 | disposition home or self-care (01) ==
LOC: ER 21:00 → 2ND 21:05
PROVIDERS: Nurse Practitioner Critical Care Medicine; Admitting Provider Internal Medicine Adolescent Medicine; Emergency Provider Emergency Medicine; PCP Nurse Practitioner; Visit Provider Internal Medicine Adolescent Medicine
DX: K59.00 Constipation, unspecified (principal); E87.1 Hypo-osmolality and hyponatremia; F17.210 Nicotine dependence, cigarettes, uncomplicated
CPT/HCPCS: 36415; 74177; 80048; 80053; 83605; 83690; 85025; 99285; G0378; Q9967

== ENCOUNTER 2023-07-21 14:16 | Outpatient (CLI) | payer MEDICARE, SELFPAY ==
[2023-07-21 18:42] LABS: Basophils % 0.4 % (0.1-2.0); Eosinophils # 0.1 K/mm3 (0.0-0.4); Eosinophils % 1.1 % (0.1-12.0); Hematocrit 40.1 % (42.0-52.0); Hemoglobin 12.7 g/dL (14.1-18.0); Lymphocytes # 0.5 K/mm3 (0.7-4.5); Lymphocytes % 6.6 % (10-50); Mean Corpuscular HGB Conc 31.8 g/dL (31.8-35.4); Mean Corpuscular Hemoglobin 31.8 pg (27.0-31.2); Mean Platelet Volume 9.7 fl (7.4-10.4); Monocytes # 0.5 K/mm3 (0.1-1.0); Monocytes % 6.6 % (1.7-9.3); Neutrophils # 6.7 K/mm3 (1.8-7.8); Neutrophils % 85.3 % (37.0-80.0); Platelet Count 283 K/mm3 (142-424); Red Blood Count 4.01 M/mm3 (4.60-6.20); Reticulocyte % (Auto) 1.1 % (0.9-3.2); White Blood Count 7.8 K/mm3 (4.8-10.8)
[2023-07-21 18:45] LABS: MANUAL DIFFERENTIAL MANUAL DIFFERENTIAL (MANUAL DIFF)
[2023-07-21 18:59] LABS: Alanine Aminotransferase 18 U/L (12-78); Albumin Level 3.5 g/dl (3.5-5.0); Albumin/Globulin Ratio 1.2 (1.1-1.8); Alkaline Phosphatase 194 U/L (38-126); Anion Gap 9.4 mEq/L (5-15); Aspartate Amino Transferase 30 U/L (17-59); Bilirubin,Total 0.5 mg/dl (0.2-1.3); Blood Urea Nitrogen 18 mg/dl (9-20); Calcium 9.2 mg/dl (8.4-10.2); Carbon Dioxide 28 mmol/L (22.0-30.0); Chloride 106 mmol/L (98-107); Estimated Glomerular Filt Rate 109 ml/min (>60); GFR (African American) 132 ML/MIN (>60); Globulin 2.9 g/dL (1.3-3.2); Glucose 99 mg/dl (74-100); Potassium 4.4 mmoL/L (3.5-5.1); Sodium 139 mmol/L (136-145); Total Protein,Serum 6.4 g/dl (6.3-8.2)
[2023-07-21 19:09] LABS: NT Pro Brain Natriuretic Pep. 590 pg/mL (0-450)
[2023-07-21 19:20] LABS: Anisocytosis 1+; Lymphocytes % 15 % (10-50); Macrocytosis 1+; Monocytes % 2 % (2-9); Neutrophils % 82 % (42-76); Platelet Estimate Normal; Total Cells Counted 100
[2023-07-21 19:27] LABS: Iron 63 ug/dL (49-181)
[2023-07-21 19:36] LABS: Total Iron Binding Capacity 269 ug/dL (261-462)
[2023-07-21 19:50] LABS: Vitamin B12 496 pg/mL (239-931)
[2023-07-21 20:03] LABS: Ferritin 121 ng/ml (17.9-464)
== END 2023-07-21 23:59 | disposition home or self-care (01) ==
LOC: LAB.DROPOF 07-22 14:17
PROVIDERS: PCP Nurse Practitioner; Visit Provider Nurse Practitioner
DX: D64.9 Anemia, unspecified (principal); R60.0 Localized edema; Z79.899 Other long term (current) drug therapy
CPT/HCPCS: 80053; 82607; 82728; 83540; 83550; 83880; 85007; 85025; 85044

== ENCOUNTER 2023-08-03 09:55 | Outpatient (RCR) | payer MEDICARE, SELFPAY ==
--- NOTE | 2023-08-03 11:39 | HMH.PTOPEV ---
PT Outpatient Evaluation Rehab PT Outpatient Evaluation Start: 08/03/23 10:04 Freq: Status: Active Protocol: Document 08/03/23 11:20 PHORNE (Rec: 08/03/23 11:38 PHORNE Laptop) E-signed By Osman Damon, PT Outpatient Therapy Subjective History Subjective History This is the initial PT eval for Jacob James, 77 yowm who presents with c/o B LE edema and generally decreased balance for several weeks. He reports no pain or discomfort at this time. He reports using a RW at home for mobility due to his decreased balance. He states, [place] don't [place] to [place]. He has hx of significant small bowel resection in the past and prior hx of EtOH abuse. TU sec this date with RW. New diagnosis of cancer in past 12 No months? Chief Complaint Weakness Symptoms Relieved By Nothing Prior Functional Limitations Walking Current Functional Limitations Housework,Walking,Balance Symptom Description Constant and Continuous Level of pain today (0-10) 0 Pain scale - at its best (0-10) 0 Pain scale - at its worst (0-10) 0 Hip/Knee Eval MMT bilateral Hip Flexion Strength Grade 3 Fair Hip Abduction Strength Grade 3 Fair Hip Adduction Strength Grade 3 Fair Hip Extension Strength Grade 3 Fair Gluteus Marc Strength Grade 3 Fair Hip External Rotation Strength Grade 3 Fair Hip Internal Rotation Strength Grade 3 Fair Knee Extension Strength Grade 4 Good Knee Flexion Strength Grade 4 Good Balance Eval Hx of Falls Hx Falls No Number in last 6 months 0 Gait/Posture Asssessment General Gait Observation Wide Based Gait Assistive Devices Rolling / Wheeled Walker Hip Posture Standing Position (L) Flexed,(R) Flexed Timed Up and Go Test 1. Is the Timed Up and Go test result > yes or = to 12 seconds? 3. Is the Timed Up and Go Test result < no 12 seconds? [place] Feet Together/Eyes open/Stable Surface pass Feet Together/Eyes Closed/Stable Surface fail Feet Together/Eyes open/Unstable Surface fail Feet Together/Eyes Closed/Unstable fail Surface Outpatient Therapy Assessment Impairments Problems/Impairmments Impaired Walking,Impaired Dressing,Impaired Shower/ Bathing,Impaired Household Care,Impaired Stair Climbing, Impaired Balance,Impaired TUG Time,Increased Edema,Impaired Self Care/Self Management Prognosis Rehab Potential Good Comment Pt is appropriate for skilled therapy to improve functional mobility and balance in standing. Clinical Impression Consistent with Diagnosis Yes Short Term Goals Number of Weeks 2 Increase Strength Yes: B hips grossly 3+/5 Improve Gait Pattern with Assistive Yes Device Decrease TUG Time Yes: 22 sec Patient to be Ind w/ HEP Yes Penitentiary Goals Number of Weeks 4 Improve Gait Pattern with Assistive Yes: straight cane Device Improve Ability For Household Care Yes Decrease TUG Time Yes: 15 sec Patient to be Ind w/ Advanced HEP Yes Outpatient Therapy Plan of Care Treatment Plan May Include Therapeutic Exercise Including Home Yes Exercise Program Manual Therapy Techniques Yes Neuromuscular Re-education Yes Therapeutic Activities to Return to Yes Previous Functional/Work Level Gait Training Yes ADL/Self Care Education Yes Eval/Re-Eval Yes Frequency Times per week 1-2 Duration Number of Weeks 4 Addendums This patient is a candidate for social No or vocational rehab? Patient/Guardian verbally acknowledges Yes understanding of treatment program and consents to further treatment? Patient/Guardian verbally acknowledges Yes understanding of diagnosis, prognosis and goals for treatment? Eval Complexity PT Charges 90300 - High Complexity Shoulder/Elbow Eval Shoulder Objective Measurements Elbow Objective Measurements PHYSICIAN CERTIFICATION: I certify the specified therapy services for Jacob James are required, authorized, and reviewed every 30 days.
== END 2023-08-03 09:59 | disposition home or self-care (01) ==
LOC: PT 09:55
PROVIDERS: Visit Provider Nurse Practitioner
DX: R53.1 Weakness (principal); Z99.89 Dependence on other enabling machines and devices
CPT/HCPCS: 97110; 97163; 97535

== ENCOUNTER 2023-08-03 11:58 | Outpatient (CLI) | payer MEDICARE, SELFPAY ==
--- NOTE | 2023-08-03 11:59 | CA_ITS ---
APPROVED REPORT EXAM: Comprehensive 2D, Doppler, and color-flow Echocardiogram Diet Consultant: Charlotte Corona RT(R) Ht: 5 ft 10 in Wt: 112lbs BSA: 1.63 BP: 121/72 mmHg Indications: BLE edema, abn EKG RBBB, weakness, anemia, etoh abuse, nicotine dependent, unable to lay on side. chest deformity noted. Limited windows available. M-Mode Dimensions RVDd 2.56 cm (0.9-2.6) LVDd 4.50 cm (3.5-5.7) LVDs 3.44 cm (3.5-5.7) IVSd 0.84 cm (0.6-1.1) PWd 0.66 cm (0.6-1.1) EF (Teich) 47.20% FS 23.60% EDV (Teich) 92.40 mL ESV (Teich) 48.80 mL Left Ventricle The left ventricle is normal size. The left ventricular systolic function is normal. The left ventricular ejection fraction is within the normal range. There is increased LV wall thickness. The septum is asynchronous. Diastolic function is indeterminate. LVEF is 55%. Right Ventricle The right ventricle is not well-visualized. Atria The left atrium size is normal. The right atrium size is not well-visualized. The interatrial septum is not well-visualized. Aortic Valve Aortic valve is mildly thickened. There is no aortic valvular stenosis. Trace aortic regurgitation. Mitral Valve The mitral valve leaflets are mildly thickened. No evidence of mitral valve stenosis. Trace mitral regurgitation. Tricuspid Valve The tricuspid valve leaflets are thin and pliable. Mild tricuspid regurgitation. RVSP is 30-35 mmHg. Pulmonic Valve The pulmonary valve is normal in structure. Mild pulmonic regurgitation. Great Vessels The aortic root is normal in size. The ascending aorta is mildly dilated, measuring 4.3 cm in diameter. The IVC is not well-visualized. Pericardium There is no pericardial effusion. Other Information Study Quality: Technically Difficult Conclusion Technically difficult study due to poor acoustic windows. Normal LV systolic function. The right atrium and right ventricle are not well-visualized. Mild TR, Mild PI. Elevated RVSP 30-35 mmHg. Ascending aorta is mildly dilated, measuring 4.3 cm in diameter. Electronically signed by : Geeta Cheng MD 08/07/2023 21:49:07
== END 2023-08-03 23:59 | disposition home or self-care (01) ==
LOC: RT 11:59
PROVIDERS: PCP Nurse Practitioner; Visit Provider Nurse Practitioner
DX: R60.0 Localized edema (principal)
CPT/HCPCS: 93306

== ENCOUNTER 2023-08-15 11:42 | Outpatient (CLI) | payer MEDICARE, SELFPAY | END 2023-08-15 23:59 | disposition home or self-care (01) | LOC: RT 11:43 | PROVIDERS: Visit Provider Physician Assistant | DX: R00.1 Bradycardia, unspecified (principal); Z86.79 Personal history of other diseases of the circulatory system | CPT/HCPCS: 93270 ==

== ENCOUNTER 2023-08-25 09:46 | Outpatient (CLI) | payer MEDICARE, SELFPAY ==
--- NOTE | 2023-08-25 09:47 | US_ITS ---
FINAL REPORT CLINICAL HISTORY: Edema, Claudication, Smoker, alcohol use FINDINGS: BILATERAL ANKLE BRACHIAL INDICES Pressure indices are as follows are: RIGHT LOWER EXTREMITY Ankle brachial pressure index: 1.3 Toe brachial pressure index: 1.0 COMMENTS: Normal LEFT LOWER EXTREMITY Ankle brachial pressure index: 1.3 Toe brachial pressure index: 1.0 COMMENTS: Normal IMPRESSION: No evidence of significant obstructive peripheral vascular disease of the lower extremities. Reviewed, Interpreted and Dictated by Herbert Lawrence MD Transcribed by Sandy Dewitt Authenticated and [facility]
--- NOTE | 2023-08-25 09:47 | CA_ITS ---
FINAL REPORT TECHNIQUE: Bilateral lower extremity venous duplex was performed with augmentation and compression. CLINICAL HISTORY: edema in BLE, CHF FINDINGS: Proper flow is seen throughout the deep venous systems bilaterally. There is no evidence of deep venous thrombosis. IMPRESSION: No evidence of deep venous thrombosis. Reviewed, Interpreted and Dictated by Herbert Lawrence MD Transcribed by Sandy Dewitt Authenticated and [facility]
== END 2023-08-25 23:59 | disposition home or self-care (01) ==
LOC: RAD 09:47 → RT 09:52
PROVIDERS: PCP Nurse Practitioner; Visit Provider Physician Assistant
DX: R60.0 Localized edema (principal); I73.9 Peripheral vascular disease, unspecified
CPT/HCPCS: 93923; 93970

== ENCOUNTER 2023-08-31 10:43 | Outpatient (CLI) | payer MEDICARE, SELFPAY ==
--- NOTE | 2023-08-31 | CA_ITS ---
APPROVED REPORT Exam: Pharmacologic Technologist: Zohreh Medrano, Ht: 5 ft 10 in Wt: 109 lbs BSA: 1.61 m2 HR: 59 bpm BP: 134/67 mmHg Rhythm: NSR, RBBB, indetermined axis, PACs, PVC Medical History Medications: Albuterol,,,,, Furosemide,,,,, PolyethYLENE GLYCOL,,,,, Cardiac Risk Factors: Smoking Stress Test Details Test: LEXISCAN HR Resting HR: 61 bpm Max Heart Rate (APMHR): 140 bpm Max HR Achieved: 87 bpm Target HR (85% APMHR): 119 bpm % of APMHR: 62 Recovery HR: 59 bpm BP Resting BP: 134/67 mmHg Max BP: 135/76 mmHg Recovery BP: 134.0/67.0 mmHg ECG Resting ECG: NSR, RBBB, indetermined axis, PACs, PVCs Stress ECG: No significant ST changes Arrhythmia: Frequent PACs, PVCs Clinical Exercise duration: 04:00 min Highest Stage Achieved: Exercise capacity: 1.0 METs Stress ECG Conclusion During lexiscan pt experinced no symptoms. Frequent PACs and moderate PVCs. No significant ST changes. Conclusion: Unremarkable lexiscan stress. Myoview images reported separately. Test Summary REST . . . . . . . Sitting REST 04:26 . . 61 . 134/ 67 . . Stage 1 01:00 . . 75 . . . . Stage 2 01:00 . . 81 . . . . Stage 3 01:00 . . 78 . 135/ 76 . . Stage 4 01:00 . . 87 . 123/ 72 . Stop exercise at 04:00 RECOVERY 01:00 . . 82 . . . . RECOVERY 02:00 . . 76 . 129/ 79 . . RECOVERY 03:00 . . 71 . 117/ 74 . . RECOVERY 03:16 . . 71 . 117/ 74 . . Electronically signed by : Geeta Cheng MD 09/03/2023 01:52:00
--- NOTE | 2023-08-31 12:00 | NM_ITS ---
APPROVED REPORT Exam: Nuclear Stress Test Indication: TOB USE, FM HX, RBBB, SOB, FATIGUE, EDEMA, ABN ECHO Patient Location: Outpatient Stress Tech: Zohreh DUMONT Tech:Katarzyna Culver, ARRT RT (R)(N)(M) Ht: 5 ft 8 in Wt: 109 lbs HR: 61 bpm BP: 134/67 mmHg BSA: 1.58 m2 TID: 0.96 BMI: 16.5 History: TOB USE, FM HX, RBBB, SOB, FATIGUE, EDEMA, ABN ECHO PT COULD NOT HOLD ARMS ABOVE HIS HEAD FOR IMAGES, NOR COULD HE LAY PRONE. Procedure: Patient received 0.4 mg of intravenous Lexiscan, resting heart rate 61 bpm, resting blood pressure 134/67 mmHg, with Lexiscan maximum heart rate achieved was 87 bpm which is % of the maximum predicted heart rate and blood pressure was 135/76 mmHg. With Lexiscan, patient denied any complaint of chest pain. Cardiac Stress and Resting SPECT Images: Cardiac Stress and Resting SPECT images were obtained using technetium 99m Myoview 32.0 mCi stress and 10.02 mCi at rest. Resting and stress imaging in supine and prone positions demonstrate a small sized, moderate, fixed perfusion defect in the apical LV wall. Gated imaging demonstrates low-normal global LV systolic function. There is moderate hypokinesis of the LV apex. LVEF is calculated at 52%. Of note, the LVEF may be inaccurate in the setting of frequent ectopy during image acquisition. Conclusion: Small sized, moderate, fixed perfusion defect in the apical LV wall. Gated imaging demonstrates low-normal global LV systolic function. There is moderate hypokinesis of the LV apex. LVEF is calculated at 52%. Of note, the LVEF may be inaccurate in the setting of frequent ectopy during image acquisition. Electronically signed by : Geeta Cheng MD 09/03/2023 01:55:53
[2023-08-31] MEDS: SODIUM CHLORIDE 0.9% 10ML SYR (RAD ONLY) 10 ML IV ×2 (13:03)
[2023-08-31] MEDS: REGADENOSON 0.4MG/5ML SYRINGE 0.400000000000000022 MG IV (13:03)
[2023-08-31] MEDS: ISOTOPE MYOVIEW (PER STUDY) 1 DOSE IV (13:03)
== END 2023-08-31 23:59 | disposition home or self-care (01) ==
LOC: RAD 10:44
PROVIDERS: PCP Nurse Practitioner; Visit Provider Physician Assistant
DX: R94.31 Abnormal electrocardiogram [ECG] [EKG] (principal); I45.10 Unspecified right bundle-branch block; Z86.79 Personal history of other diseases of the circulatory system; I77.1 Stricture of artery; I70.1 Atherosclerosis of renal artery; R93.5 Abnormal findings on diagnostic imaging of other abdominal regions, including retroperitoneum; I73.9 Peripheral vascular disease, unspecified; R63.0 Anorexia; R60.0 Localized edema; I25.10 Atherosclerotic heart disease of native coronary artery without angina pectoris
CPT/HCPCS: 78452; 93017; 93018; A9502; J2785

== ENCOUNTER 2023-09-19 11:40 | Inpatient (IN) | payer MEDICARE, SELFPAY ==
[2023-09-19] VITALS (23 sets, daily range): BP systolic 119–155; BP diastolic 49–93; PULSE 53–88; RESP 16–22; TEMP 36.4–36.6; O2SAT 91–100; BMI 15.6; BMI 17.4
--- NOTE | 2023-09-19 07:12 | IR_ITS ---
APPROVED REPORT Patient Location: Outpatient PROCEDURES Selective coronary angiogram Left heart catheterization Left ventriculogram Drug-eluting stent deployment to the proximal left main artery extending into the proximal LAD INDICATION Coronary artery disease, Angina pectoris, Abnormal Myoview, Patient considered a surgical candidate, Informed consent was obtained prior to the procedure. COMPLICATIONS NONE Estimated Blood Loss: LESS THAN 10 ML TECHNIQUE One percent lidocaine used to anesthetize the right anterior aspect of the wrist. The right radial artery was accessed via the Seldinger technique. A 6 Uzbek sheath was placed in the right radial artery. 2.5 mg of Verapamil, 800 mcg of nitroglycerin, 1mg Lidocaine and 5000 U Heparin were given through the arterial sheath. The papa catheter was also used to perform selective coronary angiogram. At the end of the diagnostic angiogram therapeutic ACT was administered giving a therapeutic ACT and the guide catheter was placed in left main artery followed by a guide liner with a Choice PT extra-support wire placed into the LAD. Primary stenting could not be performed therefore 3 mm x 12 mm noncompliant balloon was deployed at 20 sandi in left main artery in order to reduce the stenosis and allow a 4 mm x 26 mm [place] frontier stent to be deployed in the proximal left main artery extending the proximal LAD. Following this a 5 mm x 12 mm noncompliant balloon was deployed at 14 sandi in the proximal LAD and 20 sandi in the distal left main artery extending into the proximal left main artery. NAZANIN-3 flow was present before and after the procedure at the end the procedure the apparatus was removed the sheath was removed and hemostasis was achieved using TR banding patient was transferred to the postop putting in stable condition ANGIOGRAPHIC RESULTS The left main artery Has a distal concentric calcified 80% stenosis The left anterior descending artery Has proximal 50 and 60% stenoses with a mid vessel 50% stenosis The circumflex artery Nondominant yet still large with 20 and 30% stenoses The right coronary artery Dominant with proximal calcified tubular 30 to 40% stenoses throughout the proximal and mid segment The VELASCO ventriculogram reveals Normal 65% The left ventricular end-diastolic pressure 10 mmHg IMPRESSION Severe distal left main disease with additional disease in the proximal LAD Successful stent to the proximal left main artery stenting of the proximal ID severe disease reduced to less than 10% with 1 drug-eluting stent Normal ejection fraction Normal left ventricular end-diastolic pressure PLAN 1. Due to patient's COPD and complex procedure he should be admitted overnight and observed. The family also indicates he lives alone and would not be suitable to provide self-care this evening 2. LDL less than 55 to be achieved with high intensity statin 3. Avoidance of tobacco products 4. Cardiac rehabilitation 5. Risk factor modification Electronically signed by : Howie Pendleton MD 09/19/2023 14:13:25
[2023-09-19 08:31] LABS: Basophils # 0.1 K/mm3 (0-0.2); Basophils % 0.7 % (0.1-2.0); Eosinophils # 0.1 K/mm3 (0.0-0.4); Hemoglobin 11.5 g/dL (14.1-18.0); Lymphocytes # 0.7 K/mm3 (0.7-4.5); Lymphocytes % 9.9 % (10-50); Mean Corpuscular HGB Conc 31.9 g/dL (31.8-35.4); Mean Corpuscular Hemoglobin 32.4 pg (27.0-31.2); Mean Corpuscular Volume 101.4 fl (80-94); Mean Platelet Volume 7.8 fl (7.4-10.4); Monocytes # 0.3 K/mm3 (0.1-1.0); Monocytes % 4.3 % (1.7-9.3); Neutrophils # 6.2 K/mm3 (1.8-7.8); Neutrophils % 84.1 % (37.0-80.0); Platelet Count 329 K/mm3 (142-424); Red Blood Count 3.55 M/mm3 (4.60-6.20); Red Cell Distribution Width 17.2 % (11.5-17.5); White Blood Count 7.4 K/mm3 (4.8-10.8)
[2023-09-19 08:38] LABS: Chloride 102 mmol/L (98-107)
[2023-09-19 08:39] LABS: Potassium 4.1 mmoL/L (3.5-5.1)
[2023-09-19 08:42] LABS: Blood Urea Nitrogen 17 mg/dl (9-20); Calcium 8.9 mg/dl (8.4-10.2); Carbon Dioxide 30 mmol/L (22.0-30.0); Creatinine Clearance Estimated 41 mL/min (50-200); Estimated Glomerular Filt Rate 109 ml/min (>60); GFR (African American) 131 ML/MIN (>60); Glucose 91 mg/dl (74-100)
[2023-09-19] MEDS: VERAPAMIL 2.5MG/ML 2ML VIAL 2.5 MG IV (09:42)
[2023-09-19] MEDS: NITROGLYCERIN 800MCG/8ML SYR (CATH LAB) 800 MCG IA (09:43)
[2023-09-19] MEDS: HEPARIN 1,000 UNITS/500ML NS (CATH LAB) 3000 UNIT IV (09:43)
[2023-09-19] MEDS: LIDOCAINE 1% 10ML MDV 20 ML IJ (09:43)
[2023-09-19] MEDS: HEPARIN 1,000 UNITS/ML 10ML VIAL (CATH LAB) 10000 UNIT IV (09:43)
[2023-09-19] MEDS: FENTANYL 100MCG/2ML VIAL 50 MCG IV (09:44)
[2023-09-19] MEDS: MIDAZOLAM HCL 1MG/1ML 5ML VIAL 1 MG IV (09:44)
[2023-09-19] MEDS: 0.9 % SODIUM CHLORIDE 500 ML 25 ML IV (09:44)
[2023-09-19] MEDS: diphenhydrAMINE 50MG/ML VIAL 50 MG IV (10:10)
[2023-09-19 10:42] LABS: Anion Gap 7.1 mEq/L (5-15); Sodium 135 mmol/L (136-145)
[2023-09-19] MEDS: CLOPIDOGREL 300MG TABLET 600 MG PO (11:06)
[2023-09-19] MEDS: ASPIRIN 325MG TABLET 325 MG PO (11:07)
[2023-09-19] MEDS: IOPAMIDOL-370 (76%);100ML BOTTLE 170 ML IV (11:27)
--- NOTE | 2023-09-19 11:33 | SUR.PHASEII ---
Spoke to Dr Farah in regards to admission, case management notified
--- NOTE | 2023-09-19 11:44 | HMH.PHAINT1 ---
Pharmacy Intervention Comments: MEDICATION RECONCILIATION COMPLETED ON PATIENT USING EXTERNAL FILL HISTORY FROM PHARMACY. -ARINA RIVERA, [facility]AD
--- NOTE | 2023-09-19 13:21 | PC.NURSE ---
arrived by lainaer from asset availability leader
[2023-09-19 14:51] LABS: CATHL Activated Clotting Time 254 SEC (74-125)
--- NOTE | 2023-09-19 16:40 | EXP.HP ---
History of Present Illness *Admission Date: 09/19/23 *Reason for visit:: CAD *History of present illness: Mr. Sexton is an 78-year-old male with significant CAD and tobacco use history. He has been having angina and had an abnormal Myoview. Concern for CAD. Patient was brought in for elective left heart cath today due to his symptoms and risk factors. Left heart cath performed showing left main disease. Patient tolerated procedure well but given location of stent placement, patient's comorbidities, and contrast load, cardiology consulted medicine for admission and monitoring overnight with gentle hydration. Medicine agreed to admit for further management. On arrival to the floor, patient hemodynamically stable. Requiring 1 L oxygen on initial admission. Will wean as tolerated. Patient denies any chest pain, nausea, vomiting. Lives at home by himself. Uses a walker to get around. [facility] Disclaimer: The information contained in this section may have been updated after the patient was seen, as this information can be updated by other users. Medical History Difficulty in walking Hard of hearing Abnormal echocardiogram Walker as ambulation aid Weakness Bilateral lower extremity edema Anemia Weight loss Cigarette nicotine dependence Cough Decreased breath sounds of both lungs Alcohol use disorder Tobacco use disorder, continuous Hyponatremia Alcohol intoxication RBBB (right bundle branch block with left anterior fascicular block) Hip fracture Surgical History History of intestinal surgery History of cataract surgery (~2019) Family History Other No significant family history Social History Smoking Status: Current every day smoker tobacco type: cigarettes packs per day: 1 second hand exposure: Yes alcohol intake: current alcohol intake frequency: 3 or more drinks per day counseling provided: none substance use type: denies use current occupational status: retired and other Travel in the last 8 weeks: None household members: none housing: house caffeine: Yes Review of Systems Review of Systems Review of systems (narrative): 14 point review of systems performed, pertinent positives and negatives as per HPI Meds Home Medications and Allergies Home Medications Medication Instructions Recorded Confirmed Type albuterol sulfate 90 mcg/actuation 2 puff inhalation Q4HP Shortness 06/01/23 09/19/23 History aerosol inhaler Of Breath Or Wheezing comp.stocking,thigh,long,x-sml #12 ea 06/22/23 09/19/23 Rx aspirin 81 mg tablet,delayed 81 mg PO DAILY #30 tabs 08/15/23 09/19/23 Rx release (Adult Aspirin Regimen) sennosides 8.6 mg-docusate sodium 1 tab-cap PO HS 08/15/23 09/19/23 History 50 mg tablet clopidogrel 75 mg tablet (Plavix) 75 mg PO DAILY 30 days #30 tabs 09/19/23 Rx furosemide 20 mg tablet 20 mg PO DAILYP PRN Edema 09/19/23 09/19/23 History New Prescriptions to Start Prescriptions: clopidogrel [Plavix] Howie Pendleton Allergies Allergy/AdvReac Type Severity Reaction Status Date / Time No Known Allergies Allergy Verified 09/13/23 11:28 Exam Data for Last 24 hours Vital signs and Labs for Last 24 Hours: Temp Pulse Resp BP Pulse Ox O2 Del Method O2 Flow Rate 97.9 F 57 L 16 152/86 H 100 Nasal Cannula 1 09/19/23 08:25 09/19/23 15:15 09/19/23 15:15 09/19/23 15:15 09/19/23 15:15 09/19/23 15:15 09/19/23 15:15 Laboratory Results - last 24 hr 09/19/23 08:20: WBC 7.4, RBC 3.55 L, Hgb 11.5 L, Hct 36.0 L, MCV 101.4 H, MCH 32.4 H, MCHC 31.9, RDW 17.2, Plt Count 329, MPV 7.8, Neut % (Auto) 84.1 H, Lymph % (Auto) 9.9 L, [place] % (Auto) 4.3, Eos % (Auto) 1.0, Baso % (Auto) 0.7, Neut # (Auto) 6.2, Lymph # (Auto) 0.7, [place] # (Auto) 0.3, Eos # (Auto) 0.1, Baso # (Auto) 0.1, Sodium 135 L, Potassium 4.1, Chloride 102, Carbon Dioxide 30, Anion Gap 7.1, BUN 17, Creatinine 0.70, Estimated Creat Clear 41, Estimated GFR 109, Est GFR ( Amer) 131, Glucose 91, Calcium 8.9 09/19/23 10:19: Activated Clotting Time 254 H* I & O for Last 24 hours: Intake & Output 09/16/23 09/17/23 09/18/23 09/19/23 23:59 23:59 23:59 23:59 Output Total 100 / 100 Balance -100 / -100 Weight 53.722 kg Constitutional Constitutional: no acute distress, cachectic and chronically ill appearing *Routine HEENT Exam Head: Present normocephalic Eye: Present EOMI ENT: Present mucous membranes moist *Routine Neck Exam Neck: Present full ROM *Routine Respiratory Exam Respiratory: Present wheezes and symmetric chest movement; Absent rhonchi or crackles *Routine Cardiovascular Exam Cardiovascular: Present RRR *Routine Abdominal Exam Abdominal: Present soft, normoactive bowel sounds and surgical scars (prior ); Absent tenderness, distended or guarding *Routine Rectal Exam Rectal:: deferred *Routine Genitalia Exam Genitalia:: deferred *Routine Extremities Exam Extremities: Absent cyanosis or edema *Routine Skin Exam Skin: Present intact; Absent cyanosis *Routine Neurological Exam Neurological: Present alert, oriented X3 and moving all extremities; Absent altered mental status Assessment and Plan *Assessment and plan (1) CAD (coronary artery disease): Status: Acute Category: Medical Code(s): I25.10 - Atherosclerotic heart disease of [place] coronary artery without angina pectoris (2) Abnormal cardiovascular stress test: Status: Acute Category: Medical Code(s): R94.39 - Abnormal result of other cardiovascular function study (3) Hard of hearing: Status: Acute Category: Medical Code(s): H91.90 - Unspecified hearing loss, unspecified ear (4) LOYD (renal artery stenosis): Status: Acute Category: Medical Code(s): I70.1 - Atherosclerosis of renal artery (5) Intermittent claudication: Status: Acute Category: Medical Code(s): I73.9 - Peripheral vascular disease, unspecified (6) Cigarette nicotine dependence: Status: Acute Category: Social Hx Code(s): F17.210 - Nicotine dependence, cigarettes, uncomplicated Plan 78-year-old male CAD. Presented for elective left heart cath due to angina. Status post stenting of left main artery. Discussed case with cardiology, request admission for monitoring overnight due to of coronary artery disease and stent placement. Medicine agreed to admit for further management. Hemodynamically stable. Will monitor overnight. CSD S/p CAD stent - Left heart cath performed. Patient has severe distal left main disease with additional disease in the proximal LAD. Successful stent to the proximal left main artery. Reduced to less than 10% with 1 stent. EF normal - Continue aspirin 81 mg daily, Lipitor 40 mg nightly, Plavix 75 mg daily - cardiology consulted and assisting with care - Continue home regimen with Lasix 20 mg daily as needed - ventriculogram with normal EF Tobacco use disorder: nicotine patch daily as needed COPD: DuoNebs scheduled every 6 hours. Chronic constipation: Continue docusate senna nightly Kidney function normal with BUN 17, creatinine 0.7. Repeat CMP, CBC ordered for the morning to monitor creatinine. Full code Heparinized in the [facility] diet
[2023-09-19] MEDS: NICOTINE 21MG/24HR PATCH 21 MG TD (17:33)
--- NOTE | 2023-09-19 17:55 | PC.NURSE ---
A&OX4. PT WAS ON 2L NC UPON ARRIVAL TO FLOOR BUT IS CURRENTLY ON RA TOLERATING WELL. RESPIRATIONS REGULAR AND UNLABORED. LUNG SOUNDS DIMINISHED THROUGHOUT. NO COUGH NOTED. ACTIVE BOWEL SOUNDS HEARD IN ALL 4 QUADRANTS. SOFT AND NONTENDER ABDOMEN. NO BM THUS FAR. +1 PULSES NOTED THROUGHOUT. NO EDEMA NOTED. VOIDS PER URINAL WITH ASSISTANCE. DENIES PAIN THUS FAR. BED IN LOWEST POSITION. CALL LIGHT WITHIN REACH. VSS. RADIAL CATH SITE NOTED TO R WRIST AND FEMORAL CATH SITE NOTED TO R GROIN. BOTH DRESSING HAVE REMAINED CDI. 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
[2023-09-19] MEDS: IPRATROPIUM/ALBUTEROL 3 ML NEB IH ×2 (19:05→23:17)
[2023-09-19] MEDS: ATORVASTATIN 40MG TABLET 40 MG PO (20:28)
[2023-09-19] MEDS: SENNOSIDES 8.6MG/DOCUSATE 50MG TABLET 1 TAB PO (20:28)
[2023-09-20] VITALS (9 sets, daily range): BP systolic 87–157; BP diastolic 53–93; PULSE 63–104; RESP 16–20; TEMP 36.4–37; O2SAT 94–100; BMI 16.7
--- NOTE | 2023-09-20 04:40 | XR_ITS ---
PROCEDURE INFORMATION: Exam: XR Left Hip Exam date and time: 09/20/2023 4:43 AM Age: 78 years old Clinical indication: Injury or trauma; Fall TECHNIQUE: Imaging protocol: Radiologic exam of the left hip. Views: 2 or 3 views hip with pelvis when performed. COMPARISON: CT ABDOMEN PELVIS W CON 05/31/2023 7:33 PM FINDINGS: Bones/joints: The patient is diffusely osteopenic. There is acute angulation and an oblique fracture through the intertrochanteric region. Soft tissues: Unremarkable. IMPRESSION: Oblique fracture through the intertrochanteric region of the left hip. Angulation and some displacement is noted at the fracture site. No significant impaction identified.
--- NOTE | 2023-09-20 04:56 | PC.NURSE ---
at roughly 0440 patient was heard yelling hellpppp . RNs Zac Nielson, Abhay went to looking for the sound. Found patient in room [address] in the floor, naked, with his telemetry pulled off. Vitals retrieved and BE[employer] S[employer]OL INSTRUCTOR notified. House aware and present. RNs Ekaterina and Loren in room at this time too. Patient assessed and noted left hip pain and skin tear to left elbow (dsg applied). denies hitting head at this time. Patient lifted and placed in bed. STAT XR ordered. BE[employer] SCHO[employer] INSTRUCTOR stated no need for head CT at this time - asked 2x. patient is laying comfortable in bed at this time. Patient had been using call light all night, but this time he stated he tried to get up on his own and fell over the brown chair by the window, attempting to get his walker, to walk to the bathroom - he stated the brown chair rolled and he fell then. Patient continues to state what a dumb mistake I made . No bed alarm in place at time of fall or needed prior r/t patient pressing call light and no previous fall hx. 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
--- NOTE | 2023-09-20 05:01 | EXP.PN ---
Subjective *Date: 09/20/23 *Time: 05:12 Interval history: Patient found on floor by staff. Patient was lifted by nurses and placed back in bed. Patient stated he was getting up to go to the bathroom when he slipped. Patient complains of left hip pain. He denies any other injuries. Exam Data for Last 24 hours Vital signs and Labs for Last 24 Hours: Temp Pulse Resp BP Pulse Ox O2 Del Method O2 Flow Rate 97.9 F 74 16 135/77 97 Room Air 1 09/20/23 00:00 09/20/23 00:00 09/20/23 00:00 09/20/23 00:00 09/20/23 00:00 09/20/23 03:00 09/19/23 16:15 Laboratory Results - last 24 hr 09/19/23 08:20: WBC 7.4, RBC 3.55 L, Hgb 11.5 L, Hct 36.0 L, MCV 101.4 H, MCH 32.4 H, MCHC 31.9, RDW 17.2, Plt Count 329, MPV 7.8, Neut % (Auto) 84.1 H, Lymph % (Auto) 9.9 L, [place] % (Auto) 4.3, Eos % (Auto) 1.0, Baso % (Auto) 0.7, Neut # (Auto) 6.2, Lymph # (Auto) 0.7, [place] # (Auto) 0.3, Eos # (Auto) 0.1, Baso # (Auto) 0.1, Sodium 135 L, Potassium 4.1, Chloride 102, Carbon Dioxide 30, Anion Gap 7.1, BUN 17, Creatinine 0.70, Estimated Creat Clear 41, Estimated GFR 109, Est GFR ( Amer) 131, Glucose 91, Calcium 8.9 09/19/23 10:19: Activated Clotting Time 254 H* I & O for Last 24 hours: Intake & Output 09/17/23 09/18/23 09/19/23 09/20/23 23:59 23:59 23:59 23:59 Intake Total 100 / 340 240 / 240 Output Total 400 / 400 200 / 200 Balance -300 / -60 40 / 40 Weight 53.722 kg Constitutional Constitutional: mild distress *Routine HEENT Exam Head: Present normocephalic and atraumatic Eye: Present EOMI, PERRL and normal accommodation ENT: Present mucous membranes moist *Routine Neck Exam Neck: Present supple and full ROM Comments: Neck and had a has no tenderness patient has full range of the motion of the neck able to pickling grader his head without any difficulty Routine Chest/Breast/Axilla Exam Comments: Patient's chest is barrel-shaped examination of the ribs of the chest finds no bruising or any signs of pain or difficulty with respirations *Routine Respiratory Exam Respiratory: Present normal respiratory effort Comments: Patient is moving air well and is in no type of respiratory difficulty *Routine Cardiovascular Exam Cardiovascular: Present RRR Comments: Nailbeds have brisk capillary refill, left foot shows normal circulation good color of the skin *Routine Abdominal Exam Abdominal: Present soft Comments: Abdomen is nontender, patient is able to twist and move in the bed and actually helps us repositioned him for x-ray *Routine Extremities Exam Extremities: Present tenderness Comments: Examination of both upper extremities finds that the 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 Right leg and right pelvis show no tenderness he is able to bend at the hip knee and foot and has good strength with pressing my hand away with his foot no sign of injuries to those 3 extremities Pain to left hip on trying to move the leg he can move the ankle but the leg is slightly outward turned as he is keeping it straight with tenderness to any palpation at the left hip Routine Back/Spine/Pelvis Exam Comments: No tenderness of the back was found was able to touch move press, and did not see any sign of injury *Routine Skin Exam Skin: Present intact Comments: IV left arm was almost pulled out was reinforced redressed, but there was no other signs of bleeding or skin tears or significant bruising skin is pale in general, *Routine Neurological Exam Neurological: Present alert, oriented X3 and CN II-XII intact Comments: Patient is able to follow commands without hesitation, he was able to give a history of how he fell and that the fact he realizes it is a bad mistake Routine Psychiatric Exam Psychiatric: Present normal affect and normal thought process Comments: Patient noted that he is upset about this he has been through a fractured hip on the right before. But is appropriate in his responses Assessment and Plan *Assessment and plan (1) Left displaced femoral neck fracture: Start date: 06/25/24 Start time: 05:14 Status: Acute Category: Surgical Code(s): S72.002A - Fracture of unspecified part of neck of left femur, initial encounter for closed fracture (2) Difficulty in walking: Start date: 09/20/23 Status: Acute Category: Medical Code(s): R26.2 - Difficulty in walking, not elsewhere classified (3) Left hip pain: Start date: 09/20/23 Status: Acute Category: Medical Code(s): M25.552 - Pain in left hip Plan 1. Left hip fracture, have reviewed the films myself in the room, appears to be an obvious femoral neck fracture on the left, could not see any obvious fractures to the pelvis. Pain medicine has been ordered. I have examined the patient completely and did not find any other injuries except for the left hip. Was going to wait to the a.m. to consult Ortho, and await instructions if a CT scan is needed. Patient was here for overnight after having a cardiac cath with 2 stents placed. Patient does not have any chest pain vital signs are good, will wait until the morning to notify cardiology of this injury. 2. Left hip pain: Medication has been ordered for pain. Presently the patient is comfortable lying still without moving the left hip 3. Difficulty walking: Patient is unsure why he fell he knew that he was getting out of bed to go to the bathroom and he is feels that he just slipped on the floor. Patient will be nonambulatory until evaluated and hip corrected.
[2023-09-20] MEDS: HYDROCODONE/APAP 5/325 MG TABLET 1 TAB PO ×4 (05:12→20:30)
[2023-09-20] MEDS: IPRATROPIUM/ALBUTEROL 3 ML NEB IH ×3 (06:11→23:59)
[2023-09-20 06:37] LABS: Basophils % 0.3 % (0.1-2.0); Lymphocytes # 0.5 K/mm3 (0.7-4.5)
[2023-09-20 06:40] LABS: Chloride 101 mmol/L (98-107); Potassium 4.2 mmoL/L (3.5-5.1); Sodium 131 mmol/L (136-145)
[2023-09-20 06:43] LABS: Anion Gap 6.2 mEq/L (5-15); Blood Urea Nitrogen 14 mg/dl (9-20); Calcium 8.2 mg/dl (8.4-10.2); Carbon Dioxide 28 mmol/L (22.0-30.0); Creatinine Clearance Estimated 43 mL/min (50-200); Estimated Glomerular Filt Rate 130 ml/min (>60); GFR (African American) 157 ML/MIN (>60); Glucose 95 mg/dl (74-100)
[2023-09-20 06:44] LABS: INR 1.01 (0.9-1.1); Prothrombin Time 10.9 seconds (10.1-12.5)
[2023-09-20 06:46] LABS: Eosinophils % 0.5 % (0.1-12.0); Hematocrit 31.7 % (42.0-52.0); Lymphocytes % 7.4 % (10-50); Mean Corpuscular HGB Conc 30.4 g/dL (31.8-35.4); Mean Corpuscular Volume 102.2 fl (80-94); Mean Platelet Volume 8.2 fl (7.4-10.4); Monocytes # 0.2 K/mm3 (0.1-1.0); Monocytes % 3.4 % (1.7-9.3); Neutrophils # 5.6 K/mm3 (1.8-7.8); Neutrophils % 88.3 % (37.0-80.0); Platelet Count 255 K/mm3 (142-424); Red Cell Distribution Width 17.3 % (11.5-17.5); White Blood Count 6.4 K/mm3 (4.8-10.8)
[2023-09-20 07:22] LABS: MANUAL DIFFERENTIAL MANUAL DIFFERENTIAL (MANUAL DIFF)
[2023-09-20 08:14] LABS: Lymphocytes % 10 % (10-50); Monocytes % 2 % (2-9); Neutrophils % 88 % (42-76); Total Cells Counted 100
[2023-09-20 08:15] LABS: Macrocytosis 1+; Platelet Estimate Normal
[2023-09-20 08:36] LABS: Hemoglobin 9.6 g/dL (14.1-18.0)
[2023-09-20] MEDS: ASPIRIN EC 81MG TABLET 81 MG PO (08:40)
[2023-09-20] MEDS: CLOPIDOGREL 75MG TAB 75 MG PO (08:40)
[2023-09-20 09:16] LABS: Chol/HDL Ratio 2.1 (1-3.5); Cholesterol 123 mg/dl (140-200); HDL Cholesterol 59 mg/dl (40-60); Triglycerides 51 mg/dl (30-150); VLDL Cholesterol 10 mg/dL (0-40)
[2023-09-20 09:27] LABS: Direct LDL Cholesterol 39.74 mg/dL (100-129)
--- NOTE | 2023-09-20 10:32 | P.PN_ITS ---
Subjective Subjective Date: 09/20/23 Time: 09:30 Principal diagnosis: CAD s/p stenting Interval history: This is an 78-year-old gentleman who came into the hospital for outpatient left cardiac catheterization. He had complex stenting to his left main extending into the LAD. The patient was kept overnight due to the complex procedure and because he lives alone and there was concern about sending him home alone and providing care for himself after having sedation. Through the night last night the patient was found on the floor by nursing staff. The patient was lifted back to his bed and unable to bear weight on his left lower extremity. He was complaining of left hip pain with no other injuries. X-ray of the left hip showed an oblique fracture through the intertrochanteric region of the left hip. Angulation and some displacement is noted at the fracture site. The patient continues to have pain in his left hip and buttocks area this morning. He denies any chest pain or pressure. He denies any shortness of breath or edema. He denies any fever, chills, nausea, vomiting, diarrhea, PND or orthopnea Exam Data for Last 24 hours Vital signs and Labs for Last 24 Hours: Temp Pulse Resp BP Pulse Ox O2 Del Method O2 Flow Rate 97.6 F 81 18 102/66 L 97 Room Air 1 09/20/23 08:00 09/20/23 08:00 09/20/23 08:00 09/20/23 08:00 09/20/23 08:00 09/20/23 08:00 09/19/23 16:15 Laboratory Results - last 24 hr 09/19/23 08:20: Sodium 135 L, Anion Gap 7.1 09/19/23 10:19: Activated Clotting Time 254 H* 09/20/23 06:01: WBC 6.4, RBC 3.10 L, Hgb 9.6 L D, Hct 31.7 L, MCV 102.2 H, MCH 31.0, MCHC 30.4 L, RDW 17.3, Plt Count 255, MPV 8.2, Neut % (Auto) 88.3 H, Lymph % (Auto) 7.4 L, [place] % (Auto) 3.4, Eos % (Auto) 0.5, Baso % (Auto) 0.3, Neut # (Auto) 5.6, Lymph # (Auto) 0.5 L, [place] # (Auto) 0.2, Eos # (Auto) 0.0, Baso # (Auto) 0.0, Total Counted 100, Neutrophils % (Manual) 88 H, Lymphocytes % (Manual) 10, Monocytes % (Manual) 2, Platelet Estimate Normal, Macrocytosis 1+, PT 10.9, INR 1.01, Sodium 131 L, Potassium 4.2, Chloride 101, Carbon Dioxide 28, Anion Gap 6.2, BUN 14, Creatinine 0.60 L, Estimated Creat Clear 43, Estimated GFR 130, Est GFR ( Amer) 157, Glucose 95, Calcium 8.2 L, Triglycerides 51, Cholesterol 123 L, LDL Cholesterol Direct 39.74 L, VLDL Cholesterol 10, HDL Cholesterol 59, Cholesterol/HDL Ratio 2.1 I & O for Last 24 hours: Intake & Output 09/17/23 09/18/23 09/19/23 09/20/23 23:59 23:59 23:59 23:59 Intake Total 100 / 340 510 / 510 Output Total 400 / 400 375 / 375 Balance -300 / -60 135 / 135 Weight 118 lb 7 oz 112 lb 11.2 oz Constitutional Constitutional: no acute distress and thin *Routine HEENT Exam Head: Present normocephalic and atraumatic ENT: Present mucous membranes moist *Routine Neck Exam Neck: Present supple, full ROM and normal carotid upstroke; Absent JVD, carotid bruit or lymphadenopathy *Routine Respiratory Exam Respiratory: Present CTA bilaterally, normal respiratory effort, able to speak in complete sentences and symmetric chest movement *Routine Cardiovascular Exam Cardiovascular: Present RRR, Normal S1 and Normal S2; Absent murmur or gallop *Routine Abdominal Exam Abdominal: Present soft and normoactive bowel sounds; Absent tenderness, distended or organomegaly *Routine Extremities Exam Extremities: Present pulses intact and normal capillary refill; Absent cyanosis, clubbing or edema Comments: Left hip joint pain, the patient is unable to move the left lower extremity. *Routine Skin Exam Skin: Present intact and warm; Absent erythema *Routine Neurological Exam Neurological: Present alert, oriented X3 and CN II-XII intact; Absent sensory deficit or motor deficit Routine Psychiatric Exam Psychiatric: Present normal affect Progress Note: A&P Assessment and plan (1) Left displaced femoral neck fracture: Status: Acute (2) Difficulty in walking: Status: Acute (3) Left hip pain: Status: Acute (4) CAD (coronary artery disease): Status: Acute (5) Celiac artery stenosis: Status: Acute (6) LOYD (renal artery stenosis): Status: Acute (7) Tobacco use disorder, continuous: Status: Acute Assessment and Plan Assessment and Plan for All Diagnoses:: Plan: 1. This is an 78-year-old gentleman who presented to the hospital to undergo outpatient left cardiac catheterization. The patient did have a complex procedure with stenting to the left main extending into the LAD. Also there was concern about him going home alone since he is elderly and having sedation so he was kept overnight for further observation. The patient was found on the floor through the night last night and does have a fractured left hip. 2. Coronary artery disease is stable. The patient will need to continue dual antiplatelet therapy with Plavix and aspirin. 3. His blood pressure is well-controlled. His blood pressure is too low to add a beta-samantha or MARY BETH inhibitor. 4. His LDL goal is less than 55. His LDL is 39. He is on a statin. 5. Tobacco cessation is highly advised and counseled. 6. As mentioned above the patient did fall and has a left intratrochanteric hip fracture. The patient's dual antiplatelet therapy ideally should be continued in the setting of very recent left main stenting. left main stenting. He is high risk to proceed with surgery due to recent left main stenting and on dual anti- platelet therapy. The patient will more than likely bleed during the surgery due to the use of dual antiplatelet therapy. Transfuse with packed red blood cells for hemoglobin goal greater than 8. 7. Further recommendations will be made pending the patient's response to treatment. Thank you for the opportunity to help participate in the care of this patient. All recommendations and orders are per Dr. Cheng.
[2023-09-20] MEDS: NICOTINE 21MG/24HR PATCH 21 MG TD (12:06)
--- NOTE | 2023-09-20 12:25 | P.CONS_ITS ---
History of Present Illness *Admission Date: 09/19/23 *History of present illness: Mr. Sexton is an 78-year-old male with significant CAD and tobacco use history. He has been having angina and had an abnormal Myoview. Concern for CAD. Patient was brought in for elective left heart cath today due to his symptoms and risk factors. Left heart cath performed showing left main disease. Patient tolerated procedure well but given location of stent placement, patient's comorbidities, and contrast load, cardiology consulted medicine for admission and monitoring overnight with gentle hydration. Medicine agreed to admit for further management. Unfortunately patient suffered a fall during the hospitalization and suffered left hip pain x-rays revealed intertrochanteric hip fracture on the left. Orthopedics consulted regarding treatment options. [facility] Disclaimer: The information contained in this section may have been updated after the patient was seen, as this information can be updated by other users. Medical History (Updated 09/20/23 @ 12:28 by Shelton Mendez DO) Difficulty in walking Hard of hearing Abnormal echocardiogram Walker as ambulation aid Weakness Bilateral lower extremity edema Anemia Weight loss Cigarette nicotine dependence Cough Decreased breath sounds of both lungs Alcohol use disorder Tobacco use disorder, continuous Hyponatremia Alcohol intoxication RBBB (right bundle branch block with left anterior fascicular block) Hip fracture Surgical History (Updated 09/20/23 @ 12:28 by Shelton Mendez DO) History of intestinal surgery History of cataract surgery (~2018) Family History Other No significant family history Social History Smoking Status: Current every day smoker tobacco type: cigarettes packs per day: 1 second hand exposure: Yes alcohol intake: current alcohol intake frequency: 3 or more drinks per day counseling provided: none substance use type: denies use current occupational status: retired and other Travel in the last 8 weeks: None household members: none housing: house caffeine: Yes Meds Home Medications and Allergies Home Medications Medication Instructions Recorded Confirmed Type albuterol sulfate 90 mcg/actuation 2 puff inhalation Q4HP Shortness 06/01/23 09/19/23 History aerosol inhaler Of Breath Or Wheezing comp.stocking,thigh,long,x-sml #12 ea 06/22/23 09/19/23 Rx aspirin 81 mg tablet,delayed 81 mg PO DAILY #30 tabs 08/15/23 09/19/23 Rx release (Adult Aspirin Regimen) sennosides 8.6 mg-docusate sodium 1 tab-cap PO HS 08/15/23 09/19/23 History 50 mg tablet clopidogrel 75 mg tablet (Plavix) 75 mg PO DAILY 30 days #30 tabs 09/19/23 Rx furosemide 20 mg tablet 20 mg PO DAILYP PRN Edema 09/19/23 09/19/23 History New Prescriptions to Start Prescriptions: clopidogrel [Plavix] Howie Pendleton Allergies Allergy/AdvReac Type Severity Reaction Status Date / Time No Known Allergies Allergy Verified 09/13/23 11:28 Ortho Exam (Inpt) Vital signs and Labs for Last 24 Hours: Temp Pulse Resp BP Pulse Ox O2 Del Method O2 Flow Rate 97.6 F 81 18 102/66 L 97 Room Air 1 09/20/23 08:00 09/20/23 08:00 09/20/23 08:00 09/20/23 08:00 09/20/23 08:00 09/20/23 09:00 09/19/23 16:15 Laboratory Results - last 24 hr 09/19/23 10:19: Activated Clotting Time 254 H* 09/20/23 06:01: WBC 6.4, RBC 3.10 L, Hgb 9.6 L D, Hct 31.7 L, MCV 102.2 H, MCH 31.0, MCHC 30.4 L, RDW 17.3, Plt Count 255, MPV 8.2, Neut % (Auto) 88.3 H, Lymph % (Auto) 7.4 L, [place] % (Auto) 3.4, Eos % (Auto) 0.5, Baso % (Auto) 0.3, Neut # (Auto) 5.6, Lymph # (Auto) 0.5 L, [place] # (Auto) 0.2, Eos # (Auto) 0.0, Baso # (Auto) 0.0, Total Counted 100, Neutrophils % (Manual) 88 H, Lymphocytes % (Manual) 10, Monocytes % (Manual) 2, Platelet Estimate Normal, Macrocytosis 1+, PT 10.9, INR 1.01, Sodium 131 L, Potassium 4.2, Chloride 101, Carbon Dioxide 28, Anion Gap 6.2, BUN 14, Creatinine 0.60 L, Estimated Creat Clear 43, Estimated GFR 130, Est GFR ( Amer) 157, Glucose 95, Calcium 8.2 L, Triglycerides 51, Cholesterol 123 L, LDL Cholesterol Direct 39.74 L, VLDL Cholesterol 10, HDL Cholesterol 59, Cholesterol/HDL Ratio 2.1 I & O for Labs for Last 24 Hours: Intake & Output 09/17/23 09/18/23 09/19/23 09/20/23 23:59 23:59 23:59 23:59 Intake Total 100 / 340 510 / 510 Output Total 400 / 400 375 / 375 Balance -300 / -60 135 / 135 Weight 118 lb 7 oz 112 lb 11.2 oz Head: Present normocephalic Additional findings:: Left hip externally rotated patient unable to move the hip without significant pain. X-rays left hip show intertrochanteric hip fracture. Results Labs 09/20/23 06:01 09/20/23 06:01 Labs: Abnormal lab results 09/19/23 09/20/23 Range/Units 10:19 06:01 RBC 3.10 L (4.60-6.20) M/mm3 Hgb 9.6 L D (14.1-18.0) g/dL Hct 31.7 L (42.0-52.0) % MCV 102.2 H (80-94) fl MCHC 30.4 L (31.8-35.4) g/dL Neut % (Auto) 88.3 H (37.0-80.0) % Lymph % (Auto) 7.4 L (10-50) % Lymph # (Auto) 0.5 L (0.7-4.5) K/mm3 Neutrophils % (Manual) 88 H (42-76) % Activated Clotting Time 254 H* (74-125) SEC Sodium 131 L (136-145) mmol/L Creatinine 0.60 L (0.66-1.25) mg/dl Calcium 8.2 L (8.4-10.2) mg/dl Cholesterol 123 L (140-200) mg/dl LDL Cholesterol Direct 39.74 L (100-129) mg/dL H & H 09/19/23 09/20/23 Range/Units 08:20 06:01 Hgb 11.5 L 9.6 L D (14.1-18.0) g/dL Hct 36.0 L 31.7 L (42.0-52.0) % Coagulation 09/20/23 Range/Units 06:01 INR 1.01 (0.9-1.1) All other labs normal. Assessment and Plan *Assessment and plan (1) Closed intertrochanteric fracture of left hip: Status: Acute Qualifiers: Encounter type: initial encounter Fracture alignment: displaced Qualified Code(s): S72.142A - Displaced intertrochanteric fracture of left femur, initial encounter for closed fracture Category: Medical Code(s): S72.142A - Displaced intertrochanteric fracture of left femur, initial encounter for closed fracture Plan Patient obviously has a difficult situation. He had an advanced procedure with his cardiac catheterization. Now subsequently has to be on dual antiplatelet therapy which cannot be stopped. This treatment would not be able to stop within 1 month. Obviously this is not tolerable in regards to the left hip he does require operative intervention his left hip to stabilize that to allow him to weight-bear. He is can be at high risk for bleeding and anemia. And high risk for surgical intervention. However given the unstable nature of the hip fracture the benefits of surgical intervention in my opinion outweigh the risk of complications which would allow him to get out of bed weight-bear and be mobile. I explained this to him as well as his family members present. Will plan on operative intervention tomorrow in regards to the intertrochanteric hip fracture. PROPOSED SURGERY: Cephalomedullary nail left proximal femur the risks and benefits of the proposed surgery were discussed in depth with the patient. Potential complications including inherent risk of anesthesia, infection, neurovascular damage, DVT, significant increase chance of bleeding secondary to dual antiplatelet treatment which is necessary. And rare but real potential loss of limb or life were all reviewed. Patient voices understanding and seems to understand to my satisfaction and wishes to proceed with surgery. I gave them adequate time to ask any questions they have pertaining to this surgery and answered all of them to the best of my ability. I gave them no guarantees in regards to outcomes of this surgery.
--- NOTE | 2023-09-20 15:59 | HMH.PTEV ---
Physical Therapy Evaluation Rehab PT IP Evaluation Start: 09/20/23 10:20 Freq: ONCE Status: Active Protocol: Document 09/20/23 15:53 JAKUB (Rec: 09/20/23 15:59 JAKUB [email or web address]) Subjective/History History History Per H&P: Mr. Sexton is an 78-year-old male with significant CAD and tobacco use history. He has been having angina and had an abnormal Myoview. Concern for CAD. Patient was brought in for elective left heart cath today due to his symptoms and risk factors. Left heart cath performed showing left main disease. Patient tolerated procedure well but given location of stent placement, patient's comorbidities, and contrast load, cardiology consulted medicine for admission and monitoring overnight with gentle hydration. Medicine agreed to admit for further management. Subjective Subjective Pt lives alone in a home with ramped entrance. Pt has family and staff that checks in on him daily. External Grinder comes by 12-4 daily to assist with transfers and ADLs. Pt was a saurabh lift at baseline, using a w/c (IND with w/c mobility), and sleeping in a hospital bed. New diagnosis of cancer in past 12 No months? Rehab PT IP Eval Objective Appearance Patient Behavior Appropriate,Cooperative Patient Orientation Person,Situation Difficulty following instructions none Speech Pattern Clear Ambulation Patient Able to Ambulate No Balance Ability to Arise Able, uses arms to help Sitting Balance Steady, safe Transfers Bed Transfer Ability Supervision/Stand by Rehab PT IP prob,goals,plan Problems Date of Evaluation: 09/20/23 PT IP Problems Bed Mobility,Transfers,Self care Rehab Potential Rehab Potential Innapropriate for Skilled Therapy Discharge Plan PT Discharge Plan Pt safe to d/c home when deemed medically necessary d/t current level of mobility being at baseline, home set-up , available equipment, and family/caregiver support. Pt not appropriate for skilled acute care PT at this time d/t pt?s mobility being at baseline. Eval Complexity Eval Charge Codes 52405 - High Complexity PHYSICIAN CERTIFICATION: I certify the specified therapy services for Jacob aJmes are required, authorized, and reviewed every 30 days.
--- NOTE | 2023-09-20 17:08 | EXP.PN ---
Subjective *Date: 09/20/23 *Time: 17:08 Interval history: patient seen at bedside, he had a fall last night and broke his hip, no chest painm, SOB, N/V Exam Data for Last 24 hours Vital signs and Labs for Last 24 Hours: Temp Pulse Resp BP Pulse Ox O2 Del Method O2 Flow Rate 98 F 84 20 124/65 95 Room Air 1 09/20/23 12:00 09/20/23 12:00 09/20/23 12:00 09/20/23 12:00 09/20/23 12:00 09/20/23 15:00 09/19/23 16:15 Laboratory Results - last 24 hr 09/20/23 06:01: WBC 6.4, RBC 3.10 L, Hgb 9.6 L D, Hct 31.7 L, MCV 102.2 H, MCH 31.0, MCHC 30.4 L, RDW 17.3, Plt Count 255, MPV 8.2, Neut % (Auto) 88.3 H, Lymph % (Auto) 7.4 L, [place] % (Auto) 3.4, Eos % (Auto) 0.5, Baso % (Auto) 0.3, Neut # (Auto) 5.6, Lymph # (Auto) 0.5 L, [place] # (Auto) 0.2, Eos # (Auto) 0.0, Baso # (Auto) 0.0, Total Counted 100, Neutrophils % (Manual) 88 H, Lymphocytes % (Manual) 10, Monocytes % (Manual) 2, Platelet Estimate Normal, Macrocytosis 1+, PT 10.9, INR 1.01, Sodium 131 L, Potassium 4.2, Chloride 101, Carbon Dioxide 28, Anion Gap 6.2, BUN 14, Creatinine 0.60 L, Estimated Creat Clear 43, Estimated GFR 130, Est GFR ( Amer) 157, Glucose 95, Calcium 8.2 L, Triglycerides 51, Cholesterol 123 L, LDL Cholesterol Direct 39.74 L, VLDL Cholesterol 10, HDL Cholesterol 59, Cholesterol/HDL Ratio 2.1 09/20/23 15:50: Crossmatch (AHG) See Detail I & O for Last 24 hours: Intake & Output 09/17/23 09/18/23 09/19/23 09/20/23 23:59 23:59 23:59 23:59 Intake Total 100 / 340 510 / 510 Output Total 400 / 400 375 / 375 Balance -300 / -60 135 / 135 Weight 53.722 kg 51.12 kg Constitutional Constitutional: no acute distress *Routine HEENT Exam Head: Present normocephalic Eye: Present EOMI and PERRL ENT: Present mucous membranes moist *Routine Neck Exam Neck: Present supple; Absent lymphadenopathy *Routine Respiratory Exam Respiratory: Present CTA bilaterally *Routine Cardiovascular Exam Cardiovascular: Present RRR *Routine Abdominal Exam Abdominal: Present soft and normoactive bowel sounds; Absent tenderness *Routine Extremities Exam Extremities: Absent cyanosis, clubbing or edema Comments: left hip fracture *Routine Skin Exam Skin: Present warm; Absent rash *Routine Neurological Exam Neurological: Present alert and oriented X3 Assessment and Plan *Assessment and plan (1) CAD (coronary artery disease): Status: Acute Category: Medical Code(s): I25.10 - Atherosclerotic heart disease of [place] coronary artery without angina pectoris (2) Abnormal cardiovascular stress test: Status: Acute Category: Medical Code(s): R94.39 - Abnormal result of other cardiovascular function study (3) Hard of hearing: Status: Acute Category: Medical Code(s): H91.90 - Unspecified hearing loss, unspecified ear (4) LOYD (renal artery stenosis): Status: Acute Category: Medical Code(s): I70.1 - Atherosclerosis of renal artery (5) Intermittent claudication: Status: Acute Category: Medical Code(s): I73.9 - Peripheral vascular disease, unspecified (6) Cigarette nicotine dependence: Status: Acute Category: Social Hx Code(s): F17.210 - Nicotine dependence, cigarettes, uncomplicated Plan 78-year-old male CAD. Presented for elective left heart cath due to angina. Status post stenting of left main artery. Discussed case with cardiology, request admission for monitoring overnight due to of coronary artery disease and stent placement. patient had a fall last night CSD S/p CAD stent - Left heart cath performed. Patient has severe distal left main disease with additional disease in the proximal LAD. Successful stent to the proximal left main artery. Reduced to less than 10% with 1 stent. EF normal - Continue aspirin 81 mg daily, Lipitor 40 mg nightly, Plavix 75 mg daily - cardiology consulted and assisting with care - Continue home regimen with Lasix 20 mg daily as needed - ventriculogram with normal EF fall left hip fracture will need Cephalomedullary nail left proximal femur per ortho orthopedics consulted, patient may need surgery, timing to be determined by ortho, patient is high risk for surgery given recent caardiac history and being on blood thinners with ASA and Plavix Tobacco use disorder: nicotine patch daily as needed COPD: DuoNebs scheduled every 6 hours. Chronic constipation: Continue docusate senna nightly Kidney function normal with BUN 17, creatinine 0.7. Repeat CMP, CBC ordered for the morning to monitor creatinine. Full code Cardiac diet NPO after MN
[2023-09-20] MEDS: ATORVASTATIN 40MG TABLET 40 MG PO (20:29)
[2023-09-20] MEDS: SENNOSIDES 8.6MG/DOCUSATE 50MG TABLET 1 TAB PO (20:30)
[2023-09-20] MEDS: MELATONIN 5MG TABLET 10 MG PO (23:21)
[2023-09-21] VITALS (18 sets, daily range): BP systolic 82–163; BP diastolic 53–78; PULSE 55–104; RESP 16–22; TEMP 36.3–36.9; O2SAT 92–100; BMI 18.1
[2023-09-21] MEDS: HYDROCODONE/APAP 5/325 MG TABLET 1 TAB PO ×4 (01:54→20:20)
--- NOTE | 2023-09-21 06:07 | PC.NURSE ---
Pt has only slept for short intervals through the night. He has been medicated with pain meds X 2 during shift. He has had increased confusion stating things like I slept on the couch , and repeatedly asking where he needs to go for surgery. UOP decreased this shift. He has remained NPO since SD. Consents signed for surgery and possible blood transfusion.
[2023-09-21] MEDS: IPRATROPIUM/ALBUTEROL 3 ML NEB IH ×4 (06:09→23:20)
[2023-09-21 06:39] LABS: Eosinophils % 0.1 % (0.1-12.0); Lymphocytes # 0.5 K/mm3 (0.7-4.5)
[2023-09-21 06:43] LABS: Chloride 98 mmol/L (98-107); Potassium 4.3 mmoL/L (3.5-5.1); Sodium 127 mmol/L (136-145)
[2023-09-21 06:46] LABS: Anion Gap 9.3 mEq/L (5-15); Blood Urea Nitrogen 21 mg/dl (9-20); Carbon Dioxide 24 mmol/L (22.0-30.0); Creatinine Clearance Estimated 44 mL/min (50-200); Estimated Glomerular Filt Rate 93 ml/min (>60); GFR (African American) 113 ML/MIN (>60)
[2023-09-21 06:47] LABS: Calcium 8.1 mg/dl (8.4-10.2); Glucose 117 mg/dl (74-100)
[2023-09-21 07:28] LABS: Basophils % 0.2 % (0.1-2.0); Hematocrit 25.8 % (42.0-52.0); Lymphocytes % 5.3 % (10-50); Mean Corpuscular HGB Conc 31.4 g/dL (31.8-35.4); Mean Corpuscular Hemoglobin 31.7 pg (27.0-31.2); Mean Corpuscular Volume 100.8 fl (80-94); Mean Platelet Volume 8.8 fl (7.4-10.4); Monocytes # 0.3 K/mm3 (0.1-1.0); Monocytes % 3.5 % (1.7-9.3); Neutrophils # 8.2 K/mm3 (1.8-7.8); Neutrophils % 90.9 % (37.0-80.0); Platelet Count 238 K/mm3 (142-424); Red Blood Count 2.56 M/mm3 (4.60-6.20); Red Cell Distribution Width 17.3 % (11.5-17.5)
[2023-09-21 07:45] LABS: MANUAL DIFFERENTIAL MANUAL DIFFERENTIAL (MANUAL DIFF)
[2023-09-21 09:18] LABS: Hemoglobin 8.1 g/dL (14.1-18.0)
[2023-09-21] MEDS: ASPIRIN EC 81MG TABLET 81 MG PO (09:53)
[2023-09-21] MEDS: CLOPIDOGREL 75MG TAB 75 MG PO (09:53)
--- NOTE | 2023-09-21 10:42 | EXP.CARD.PN ---
Subjective Subjective Date: 09/21/23 Time: 09:30 Principal diagnosis: CAD s/p stenting Interval history: This is an 78-year-old gentleman who presented to the hospital for outpatient left cardiac catheterization. He had complex stenting to his left main artery extending into the LAD. He was kept overnight due to the complex procedure and because he lives alone and there was concern that he would not be able to care for himself through the night with having sedation. The patient was found on the floor by nursing staff during his first night of hospitalization. The patient did have a fracture of his left intratrochanteric bone of his hip. The patient is scheduled to undergo hip surgery this morning. He denies any chest pain or pressure. He denies any shortness of breath or edema. He denies any fever, chills, nausea, vomiting, diarrhea, PND orthopnea. He states that his hip pain is under much better control today. Exam Data for Last 24 hours Vital signs and Labs for Last 24 Hours: Temp Pulse Resp BP Pulse Ox O2 Del Method O2 Flow Rate 98.2 F 95 H 21 88/57 L 96 Room Air 1 09/21/23 07:56 09/21/23 08:00 09/21/23 07:56 09/21/23 07:56 09/21/23 07:56 09/21/23 09:00 09/19/23 16:15 Laboratory Results - last 24 hr 09/20/23 15:50: Blood Type B Positive, Antibody Screen Negative, Crossmatch (AHG) See Detail 09/21/23 05:40: WBC 9.0 D, RBC 2.56 L, Hgb 8.1 L D, Hct 25.8 L, MCV 100.8 H, MCH 31.7 H, MCHC 31.4 L, RDW 17.3, Plt Count 238, MPV 8.8, Neut % (Auto) 90.9 H, Lymph % (Auto) 5.3 L, [place] % (Auto) 3.5, Eos % (Auto) 0.1, Baso % (Auto) 0.2, Neut # (Auto) 8.2 H, Lymph # (Auto) 0.5 L, [place] # (Auto) 0.3, Eos # (Auto) 0.0, Baso # (Auto) 0.0, Sodium 127 L, Potassium 4.3, Chloride 98, Carbon Dioxide 24, Anion Gap 9.3, BUN 21 H D, Creatinine 0.80 D, Estimated Creat Clear 44, Estimated GFR 93, Est GFR ( Amer) 113 D, Glucose 117 H D, Calcium 8.1 L I & O for Last 24 hours: Intake & Output 09/18/23 09/19/23 09/20/23 09/21/23 23:59 23:59 23:59 23:59 Intake Total 100 / 340 1140 / 1140 Output Total 400 / 400 375 / 375 150 / 150 Balance -300 / -60 765 / 765 -150 / -150 Weight 118 lb 7 oz 112 lb 11.205 oz 116 lb Constitutional Constitutional: no acute distress and thin *Routine HEENT Exam Head: Present normocephalic and atraumatic ENT: Present mucous membranes moist *Routine Neck Exam Neck: Present supple, full ROM and normal carotid upstroke; Absent JVD, carotid bruit or lymphadenopathy *Routine Respiratory Exam Respiratory: Present CTA bilaterally, normal respiratory effort, able to speak in complete sentences and symmetric chest movement *Routine Cardiovascular Exam Cardiovascular: Present RRR, Normal S1 and Normal S2; Absent murmur or gallop *Routine Abdominal Exam Abdominal: Present soft and normoactive bowel sounds; Absent tenderness, distended or organomegaly *Routine Extremities Exam Extremities: Present pulses intact and normal capillary refill; Absent cyanosis, clubbing or edema Comments: Left hip joint pain, the patient is unable to move the left lower extremity. *Routine Skin Exam Skin: Present intact and warm; Absent erythema *Routine Neurological Exam Neurological: Present alert, oriented X3 and CN II-XII intact; Absent sensory deficit or motor deficit Routine Psychiatric Exam Psychiatric: Present normal affect Progress Note: A&P Assessment and plan (1) CAD (coronary artery disease): Status: Acute (2) Hard of hearing: Status: Acute (3) LOYD (renal artery stenosis): Status: Acute (4) Cigarette nicotine dependence: Status: Acute (5) Closed intertrochanteric fracture of left hip: Status: Acute (6) Left hip pain: Status: Acute (7) Dyspnea: Status: Acute Assessment and Plan Assessment and Plan for All Diagnoses:: Plan: 1. This is an 78-year-old gentleman who presented to the hospital to undergo outpatient left cardiac catheterization. The patient did have a complex procedure with stenting to the left main extending into the LAD. Also there was concern about him going home alone since he is elderly and having sedation so he was kept overnight for further observation. The patient was found on the floor through the night during the first night of hospitalization. He does have a fractured left hip from the fall. He is scheduled to undergo surgery on his left hip this morning. 2. Coronary artery disease is stable. The patient will need to continue dual antiplatelet therapy with Plavix and aspirin. 3. His blood pressure is on the low side but acceptable. His blood pressure is too low to add a beta-samantha or MARY BETH inhibitor. 4. His LDL goal is less than 55. His LDL is 39. He is on a statin. 5. Tobacco cessation is highly advised and counseled. Nicotine patch has been prescribed. 6. As mentioned above the patient did fall and has a left intratrochanteric hip fracture. The patient's dual antiplatelet therapy ideally should be continued in the setting of very recent left main stenting. He is high risk to proceed with surgery due to recent left main stenting and on dual anti-platelet therapy. The patient will more than likely bleed during the surgery due to the use of dual antiplatelet therapy. Transfuse with packed red blood cells for hemoglobin goal greater than 8. 7. Further recommendations will be made pending the patient's response to treatment. Thank you for the opportunity to help participate in the care of this patient. All recommendations and orders are per Dr. Cheng.
--- NOTE | 2023-09-21 11:37 | PC.NURSE ---
received call from Summer from surgery, stated that due to hyponatremia, anesthesiology did not clear patient for surgery, pt is allowed to eat at this time
[2023-09-21] MEDS: NICOTINE 21MG/24HR PATCH 21 MG TD (12:06)
[2023-09-21 12:52] LABS: Lymphocytes % 4 % (10-50); Macrocytosis 1+; Monocytes % 2 % (2-9); Neutrophils % 94 % (42-76); Platelet Estimate Normal; Total Cells Counted 100
[2023-09-21] MEDS: 0.9 % SODIUM CHLORIDE 1000ML 500 ML 250 ML IV (14:01)
--- NOTE | 2023-09-21 14:38 | P.PN_ITS ---
Subjective *Date: 09/21/23 *Time: 14:44 Interval history: 78-year-old male who suffered an intertrochanteric left hip fracture from a fall in the hospital. Was scheduled for surgical intervention today however canceled by anesthesia secondary to hyponatremia. Having severe pain in the left hip with movement but comfortable at rest. Hemoglobin 8.1 this morning. Ortho Exam (Inpt) Vital signs and Labs for Last 24 Hours: Temp Pulse Resp BP Pulse Ox O2 Del Method O2 Flow Rate 98.4 F 104 H 22 88/64 L 95 Room Air 1 09/21/23 11:55 09/21/23 13:11 09/21/23 11:55 09/21/23 13:11 09/21/23 11:55 09/21/23 13:00 09/19/23 16:15 Laboratory Results - last 24 hr 09/20/23 15:50: Blood Type B Positive, Antibody Screen Negative, Crossmatch (AHG) See Detail 09/21/23 05:40: WBC 9.0 D, RBC 2.56 L, Hgb 8.1 L D, Hct 25.8 L, MCV 100.8 H, MCH 31.7 H, MCHC 31.4 L, RDW 17.3, Plt Count 238, MPV 8.8, Neut % (Auto) 90.9 H, Lymph % (Auto) 5.3 L, [place] % (Auto) 3.5, Eos % (Auto) 0.1, Baso % (Auto) 0.2, Neut # (Auto) 8.2 H, Lymph # (Auto) 0.5 L, [place] # (Auto) 0.3, Eos # (Auto) 0.0, Baso # (Auto) 0.0, Total Counted 100, Neutrophils % (Manual) 94 H, Lymphocytes % (Manual) 4 L, Monocytes % (Manual) 2, Platelet Estimate Normal, RBC Morphology Not Reportable, Macrocytosis 1+, Sodium 127 L, Potassium 4.3, Chloride 98, Carbon Dioxide 24, Anion Gap 9.3, BUN 21 H D, Creatinine 0.80 D, Estimated Creat Clear 44, Estimated GFR 93, Est GFR ( Amer) 113 D, Glucose 117 H D , Calcium 8.1 L I & O for Labs for Last 24 Hours: Intake & Output 06/23/09/19/23 09/20/23 09/21/23 23:59 23:59 23:59 23:59 Intake Total 100 / 340 1140 / 1140 270 / 270 Output Total 400 / 400 375 / 375 150 / 150 Balance -300 / -60 765 / 765 120 / 120 Weight 118 lb 7 oz 112 lb 11.205 oz 116 lb Constitutional: Present no acute distress Comment:: Pain with any movement of the left hip left lower extremity externally rotated. Assessment and Plan *Assessment and plan (1) Closed intertrochanteric fracture of left hip: Status: Acute Qualifiers: Encounter type: initial encounter Fracture alignment: displaced Qualified Code(s): S72.142A - Displaced intertrochanteric fracture of left femur, initial encounter for closed fracture Category: Medical Code(s): S72.142A - Displaced intertrochanteric fracture of left femur, initial encounter for closed fracture Plan Unfortunately patient is on dual antiplatelet therapy with aspirin and Plavix. He is unable to come off of this regimen secondary to cardiac procedure. He is anemic which is likely acute blood loss anemia secondary to hip fracture. Hyponatremia today. Anesthesia would like to see the sodium corrected. There is a possibility he will need transfusion in the morning. Pulmonary plan is to go to the operating room in the afternoon early evening tomorrow for cephalomedullary nailing of left hip pending sodium
--- NOTE | 2023-09-21 16:59 | P.PN_ITS ---
Subjective *Date: 09/21/23 *Time: 16:59 Interval history: patient seen at bedside, no chest pain, SOB, N/V Exam Data for Last 24 hours Vital signs and Labs for Last 24 Hours: Temp Pulse Resp BP Pulse Ox O2 Del Method O2 Flow Rate 98.4 F 85 21 118/67 94 L Room Air 1 09/21/23 11:55 09/21/23 16:00 09/21/23 16:00 09/21/23 16:00 09/21/23 16:00 09/21/23 16:00 09/19/23 16:15 Laboratory Results - last 24 hr 09/20/23 15:50: Blood Type B Positive, Antibody Screen Negative, Crossmatch (AHG) See Detail 09/21/23 05:40: WBC 9.0 D, RBC 2.56 L, Hgb 8.1 L D, Hct 25.8 L, MCV 100.8 H, MCH 31.7 H, MCHC 31.4 L, RDW 17.3, Plt Count 238, MPV 8.8, Neut % (Auto) 90.9 H, Lymph % (Auto) 5.3 L, [place] % (Auto) 3.5, Eos % (Auto) 0.1, Baso % (Auto) 0.2, Neut # (Auto) 8.2 H, Lymph # (Auto) 0.5 L, [place] # (Auto) 0.3, Eos # (Auto) 0.0, Baso # (Auto) 0.0, Total Counted 100, Neutrophils % (Manual) 94 H, Lymphocytes % (Manual) 4 L, Monocytes % (Manual) 2, Platelet Estimate Normal, RBC Morphology Not Reportable, Macrocytosis 1+, Sodium 127 L, Potassium 4.3, Chloride 98, Carbon Dioxide 24, Anion Gap 9.3, BUN 21 H D, Creatinine 0.80 D, Estimated Creat Clear 44, Estimated GFR 93, Est GFR ( Amer) 113 D, Glucose 117 H D , Calcium 8.1 L I & O for Last 24 hours: Intake & Output 09/18/23 09/19/23 09/20/23 09/21/23 23:59 23:59 23:59 23:59 Intake Total 100 / 340 1140 / 1140 270 / 270 Output Total 400 / 400 375 / 375 150 / 150 Balance -300 / -60 765 / 765 120 / 120 Weight 53.722 kg 51.12 kg 52.617 kg Constitutional Constitutional: no acute distress *Routine HEENT Exam Head: Present normocephalic Eye: Present EOMI and PERRL ENT: Present mucous membranes moist *Routine Neck Exam Neck: Present supple; Absent lymphadenopathy *Routine Respiratory Exam Respiratory: Present CTA bilaterally *Routine Cardiovascular Exam Cardiovascular: Present RRR *Routine Abdominal Exam Abdominal: Present soft and normoactive bowel sounds; Absent tenderness *Routine Extremities Exam Extremities: Absent cyanosis, clubbing or edema Comments: left hip fracture *Routine Skin Exam Skin: Present warm; Absent rash *Routine Neurological Exam Neurological: Present alert and oriented X3 Assessment and Plan *Assessment and plan (1) CAD (coronary artery disease): Status: Acute Category: Medical Code(s): I25.10 - Atherosclerotic heart disease of [place] coronary artery without angina pectoris (2) Abnormal cardiovascular stress test: Status: Acute Category: Medical Code(s): R94.39 - Abnormal result of other cardiovascular function study (3) Hard of hearing: Status: Acute Category: Medical Code(s): H91.90 - Unspecified hearing loss, unspecified ear (4) LOYD (renal artery stenosis): Status: Acute Category: Medical Code(s): I70.1 - Atherosclerosis of renal artery (5) Intermittent claudication: Status: Acute Category: Medical Code(s): I73.9 - Peripheral vascular disease, unspecified (6) Cigarette nicotine dependence: Status: Acute Category: Social Hx Code(s): F17.210 - Nicotine dependence, cigarettes, uncomplicated Plan 78-year-old male CAD. Presented for elective left heart cath due to angina. Status post stenting of left main artery. Discussed case with cardiology, request admission for monitoring overnight due to of coronary artery disease and stent placement. CSD S/p CAD stent - Left heart cath performed. Patient has severe distal left main disease with additional disease in the proximal LAD. Successful stent to the proximal left main artery. Reduced to less than 10% with 1 stent. EF normal - Continue aspirin 81 mg daily, Lipitor 40 mg nightly, Plavix 75 mg daily - cardiology consulted and assisting with care - Continue home regimen with Lasix 20 mg daily as needed - ventriculogram with normal EF fall left hip fracture will need Cephalomedullary nail left proximal femur per ortho orthopedics consulted, patient may need surgery, timing to be determined by ortho, patient is high risk for surgery given recent caardiac history and being on blood thinners with ASA and Plavix Anemia - Hb is trending down, order fecal occult check iron studies Hyponatremia - likely due to diuretics, will hold lasix, monitor BMP Tobacco use disorder: nicotine patch daily as needed COPD: DuoNebs scheduled every 6 hours. Chronic constipation: Continue docusate senna nightly Full code Cardiac diet
--- NOTE | 2023-09-21 18:35 | PC.NURSE ---
Patient being moved to step down at this time. Nephew who is POA was notified at this time.
[2023-09-21] MEDS: AMIODARONE HCL 150 MG in DEXTROSE 5 % IN WATER 100 ML 618 MG IV (18:55)
[2023-09-21] MEDS: AMIODARONE HCL 900 MG in DEXTROSE 5 % IN WATER 500 ML 34.53 MG IV (19:21)
[2023-09-21] MEDS: ATORVASTATIN 40MG TABLET 40 MG PO (20:20)
[2023-09-21] MEDS: MELATONIN 5MG TABLET 10 MG PO (20:21)
[2023-09-21] MEDS: SENNOSIDES 8.6MG/DOCUSATE 50MG TABLET 1 TAB PO (20:21)
[2023-09-22] VITALS (35 sets, daily range): BP systolic 98–156; BP diastolic 53–98; PULSE 73–110; RESP 16–33; TEMP 36.3–37.3; O2SAT 90–98; BMI 18.3
[2023-09-22] MEDS: IPRATROPIUM/ALBUTEROL 3 ML NEB IH ×3 (05:53→18:13)
[2023-09-22 06:38] LABS: Chloride 97 mmol/L (98-107)
[2023-09-22 06:39] LABS: Basophils % 0.1 % (0.1-2.0); Eosinophils % 0.2 % (0.1-12.0); Hematocrit 22.6 % (42.0-52.0); Hemoglobin 7.5 g/dL (14.1-18.0); Lymphocytes # 0.6 K/mm3 (0.7-4.5); Lymphocytes % 4.5 % (10-50); Mean Corpuscular HGB Conc 33.3 g/dL (31.8-35.4); Mean Corpuscular Volume 99.1 fl (80-94); Mean Platelet Volume 8.2 fl (7.4-10.4); Monocytes # 0.4 K/mm3 (0.1-1.0); Monocytes % 2.8 % (1.7-9.3); Neutrophils # 11.4 K/mm3 (1.8-7.8); Neutrophils % 92.4 % (37.0-80.0); Platelet Count 207 K/mm3 (142-424); Potassium 4.5 mmoL/L (3.5-5.1); Red Blood Count 2.28 M/mm3 (4.60-6.20); Red Cell Distribution Width 17.1 % (11.5-17.5); Sodium 126 mmol/L (136-145); White Blood Count 12.3 K/mm3 (4.8-10.8)
[2023-09-22 06:42] LABS: Anion Gap 7.5 mEq/L (5-15); Blood Urea Nitrogen 25 mg/dl (9-20); Calcium 8.2 mg/dl (8.4-10.2); Carbon Dioxide 26 mmol/L (22.0-30.0); Creatinine Clearance Estimated 44 mL/min (50-200); Estimated Glomerular Filt Rate 93 ml/min (>60); GFR (African American) 113 ML/MIN (>60); Glucose 119 mg/dl (74-100)
[2023-09-22 07:01] LABS: MANUAL DIFFERENTIAL MANUAL DIFFERENTIAL (MANUAL DIFF)
[2023-09-22 08:16] LABS: Lymphocytes % 1 % (10-50); Monocytes % 1 % (2-9); Neutrophils % 98 % (42-76); Platelet Estimate Normal; RBC Morphology Normal; Total Cells Counted 100
[2023-09-22] MEDS: CLOPIDOGREL 75MG TAB 75 MG PO (09:33)
[2023-09-22] MEDS: ASPIRIN EC 81MG TABLET 81 MG PO (09:33)
--- NOTE | 2023-09-22 10:49 | EXP.CARD.PN ---
Subjective Subjective Date: 09/22/23 Time: 09:30 Principal diagnosis: CAD s/p stenting Interval history: This is an 78-year-old gentleman who presented to the hospital for an outpatient left cardiac catheterization and underwent complex stenting to his left main artery extending into the LAD. He was kept overnight due to the complex nature of his procedure. He did fall and sustained a left intertrochanteric hip fracture while he was in the hospital. He was scheduled to undergo surgical intervention to the left hip yesterday but it was canceled by anesthesia due to hyponatremia. He remains hyponatremic this morning and he is anemic as well with a hemoglobin down to 7.5, the patient's hemoglobin had initially been around 11-12.7. This morning he denies any chest pain or pressure. He denies any shortness of breath or edema. He denies any fever, chills, nausea, vomiting, diarrhea, PND orthopnea. He is having significant left hip pain with movement but at rest he is currently not having any pain and it is better controlled. He is slightly confused this morning. He is able to answer all of my questions appropriately and he is alert and oriented appropriately but sometimes he will say things that are not true or accurate but he does reorient easily. The patient did have short proximal-isms of atrial fibrillation last night. He was started on an amiodarone drip and is in sinus rhythm this morning. Exam Data for Last 24 hours Vital signs and Labs for Last 24 Hours: Temp Pulse Resp BP Pulse Ox O2 Del Method O2 Flow Rate 98.1 F 88 18 98/64 L 95 Room Air 100 09/22/23 10:45 09/22/23 10:45 09/22/23 10:45 09/22/23 10:45 09/22/23 10:45 09/22/23 10:00 09/22/23 00:00 Laboratory Results - last 24 hr 09/20/23 15:50: Blood Type B Positive, Antibody Screen Negative, Crossmatch (AHG) See Detail 09/21/23 05:40: Total Counted 100, Neutrophils % (Manual) 94 H, Lymphocytes % (Manual) 4 L, Monocytes % (Manual) 2, Platelet Estimate Normal, RBC Morphology Not Reportable, Macrocytosis 1+ 09/22/23 05:36: WBC 12.3 H D, RBC 2.28 L, Hgb 7.5 L, Hct 22.6 L, MCV 99.1 H, MCH 33.0 H, MCHC 33.3, RDW 17.1, Plt Count 207, MPV 8.2, Neut % (Auto) 92.4 H, Lymph % (Auto) 4.5 L, [place] % (Auto) 2.8, Eos % (Auto) 0.2, Baso % (Auto) 0.1, Neut # (Auto) 11.4 H, Lymph # (Auto) 0.6 L, [place] # (Auto) 0.4, Eos # (Auto) 0.0, Baso # (Auto) 0.0, Total Counted 100, Neutrophils % (Manual) 98 H, Lymphocytes % (Manual) 1 L, Monocytes % (Manual) 1 L, Platelet Estimate Normal, RBC Morphology Normal, Sodium 126 L, Potassium 4.5, Chloride 97 L, Carbon Dioxide 26, Anion Gap 7.5, BUN 25 H, Creatinine 0.80, Estimated Creat Clear 44, Estimated GFR 93, Est GFR ( Amer) 113, Glucose 119 H, Calcium 8.2 L I & O for Last 24 hours: Intake & Output 09/19/23 09/20/23 09/21/23 09/22/23 23:59 23:59 23:59 23:59 Intake Total 100 / 340 1140 / 1140 510 / 510 231.927 / 231.927 Output Total 400 / 400 375 / 375 150 / 150 200 / 200 Balance -300 / -60 765 / 765 360 / 360 31.927 / 31.927 Weight 118 lb 7 oz 112 lb 11.205 oz 116 lb 116 lb 14.4 oz Constitutional Constitutional: no acute distress and thin *Routine HEENT Exam Head: Present normocephalic and atraumatic ENT: Present mucous membranes moist *Routine Neck Exam Neck: Present supple, full ROM and normal carotid upstroke; Absent JVD, carotid bruit or lymphadenopathy *Routine Respiratory Exam Respiratory: Present CTA bilaterally, normal respiratory effort, able to speak in complete sentences and symmetric chest movement *Routine Cardiovascular Exam Cardiovascular: Present RRR, Normal S1 and Normal S2; Absent murmur or gallop *Routine Abdominal Exam Abdominal: Present soft and normoactive bowel sounds; Absent tenderness, distended or organomegaly *Routine Extremities Exam Extremities: Present pulses intact and normal capillary refill; Absent cyanosis, clubbing or edema Comments: Left hip joint pain, the patient is unable to move the left lower extremity. *Routine Skin Exam Skin: Present intact and warm; Absent erythema *Routine Neurological Exam Neurological: Present alert, oriented X3 and CN II-XII intact; Absent sensory deficit or motor deficit Routine Psychiatric Exam Psychiatric: Present normal affect Progress Note: A&P Assessment and plan (1) CAD (coronary artery disease): Status: Acute (2) Closed intertrochanteric fracture of left hip: Status: Acute (3) Left hip pain: Status: Acute (4) Paroxysmal atrial fibrillation: Status: Acute (5) Anemia: Status: Acute (6) Hyponatremia: Status: Acute (7) Hard of hearing: Status: Acute (8) LOYD (renal artery stenosis): Status: Acute (9) Cigarette nicotine dependence: Status: Acute (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 This is an 78-year-old gentleman who presented to the hospital to undergo outpatient left cardiac catheterization. The patient did have a complex procedure with stenting to the left main extending into the LAD. Also there was concern about him going home alone since he is elderly and having sedation so he was kept overnight for further observation. The patient was found on the floor through the night during the first night of hospitalization. He does have a fractured left hip from the fall. Was scheduled to undergo surgical intervention yesterday to the left hip but this was canceled by anesthesia due to hyponatremia. 2. The patient remains hyponatremic today with a sodium of 126. 3. The patient is also anemic. His hemoglobin is down to 7.5 which is down from a baseline 11-12.7. He is currently on dual antiplatelet therapy which cannot be stopped due to his recent left main stenting. He is getting transfused with packed red blood cells today. Repeat CBC at 3 PM today. 4. Coronary artery disease is stable. The patient will need to continue dual antiplatelet therapy with Plavix and aspirin. 5. His blood pressure is on the low side but acceptable. His blood pressure is too low to add a beta-samantha or MARY BETH inhibitor. 6. His LDL goal is less than 55. His LDL is 39. He is on a statin. 7. Tobacco cessation is highly advised and counseled. Nicotine patch has been prescribed. 8. As mentioned above the patient did fall and has a left intratrochanteric hip fracture. The patient's dual antiplatelet therapy ideally should be continued in the setting of very recent left main stenting. He is high risk to proceed with surgery due to recent left main stenting and on dual anti-platelet therapy. The patient will more than likely bleed during the surgery due to the use of dual antiplatelet therapy. Transfuse with packed red blood cells for hemoglobin goal greater than 8. 9. The patient was having short runs of paroxysms of atrial fibrillation. Dr. Pendleton was contacted and he was started on an amiodarone drip through the night last night. He is in sinus rhythm this morning. Continue amiodarone drip until he has had surgery. 10. Repeat CBC and BMP in the morning. 11. Further recommendations will be made pending the patient's response to treatment. Thank you for the opportunity to help participate in the care of this patient. All recommendations and orders are per Dr. Cheng.
[2023-09-22] MEDS: SODIUM CHLORIDE 0.9% 10ML VIAL 10 ML IV (11:03)
[2023-09-22] MEDS: PANTOPRAZOLE 40MG VIAL 40 MG IV ×2 (11:03→20:20)
[2023-09-22] MEDS: 0.9 % SODIUM CHLORIDE 250 ML 25 ML IV (11:08)
[2023-09-22] MEDS: NICOTINE 21MG/24HR PATCH 21 MG TD (11:08)
[2023-09-22 15:38] LABS: Basophils % 0.1 % (0.1-2.0); Eosinophils # 0.1 K/mm3 (0.0-0.4); Eosinophils % 0.5 % (0.1-12.0); Lymphocytes # 0.4 K/mm3 (0.7-4.5); Lymphocytes % 2.7 % (10-50); Mean Corpuscular HGB Conc 34.4 g/dL (31.8-35.4); Mean Corpuscular Hemoglobin 32.4 pg (27.0-31.2); Mean Corpuscular Volume 94.2 fl (80-94); Mean Platelet Volume 8.2 fl (7.4-10.4); Monocytes # 0.4 K/mm3 (0.1-1.0); Monocytes % 2.7 % (1.7-9.3); Neutrophils # 14.4 K/mm3 (1.8-7.8); Platelet Count 198 K/mm3 (142-424); Red Blood Count 3.82 M/mm3 (4.60-6.20); Red Cell Distribution Width 16.9 % (11.5-17.5); White Blood Count 15.3 K/mm3 (4.8-10.8)
[2023-09-22 15:40] LABS: MANUAL DIFFERENTIAL MANUAL DIFFERENTIAL (MANUAL DIFF)
[2023-09-22 15:45] LABS: Anion Gap 12.6 mEq/L (5-15); Blood Urea Nitrogen 27 mg/dl (9-20); Calcium 8.5 mg/dl (8.4-10.2); Carbon Dioxide 23 mmol/L (22.0-30.0); Chloride 94 mmol/L (98-107); Creatinine Clearance Estimated 44 mL/min (50-200); Estimated Glomerular Filt Rate 81 ml/min (>60); GFR (African American) 98 ML/MIN (>60); Glucose 123 mg/dl (74-100); Potassium 4.6 mmoL/L (3.5-5.1); Sodium 125 mmol/L (136-145)
[2023-09-22 15:58] LABS: Monocytes % 1 % (2-9); Neutrophils % 99 % (42-76); Platelet Estimate Normal; RBC Morphology Normal; Total Cells Counted 100
[2023-09-22 16:03] LABS: Free T4 (Free Thyroxine) 1.95 ng/dl (0.78-2.19)
--- NOTE | 2023-09-22 16:05 | PC.NURSE ---
NOTIFIED ABOUT AMIODARONE BEING STOPPED AFTER BEING TIMED OUT IN THE MAY AND HE STATED TO START DRIP BACK AT 0.5MG/HR UNTIL SURGERY. PHARMACY NOTIFIED.
[2023-09-22 16:06] LABS: Hemoglobin 12.3 g/dL (14.1-18.0)
[2023-09-22 16:16] LABS: Thyroid Stimulating Hormone 1.93 uIU/mL (0.465-4.68)
[2023-09-22] MEDS: AMIODARONE HCL 900 MG in DEXTROSE 5 % IN WATER 500 ML 17.3 MG IV (16:23)
--- NOTE | 2023-09-22 17:31 | PC.NURSE ---
PT IS RESTING IN BED. TURNED AND REPOSITIONED FREQUENTLY. PT TOLERATED 2 UNITS OF PRBC'S THIS SHIFT. APPETITE HAS BEEN POOR. PT HAS BEEN ENCOURAGED TO DRINK ENSURE. LUNG SOUNDS DIMINISHED WITH SCATTERED RHONCHI. SWELLING AND ABRASIONS NOTED TO BLE. SMALL AREA NOTED TO THE COCCYX. SCATTERED BRUISING NOTED TO BUE. AMIODARONE DRIP INFUSING @ 0.5 MG/HR. HOSPITALIST WAS NOTIFIED ABOUT PT ONLY HAVING 50 ML'S OF UOP THIS SHIFT. BLADDER SCANNED >318 ML'S. PT STATED HE WOULD TRY TO VOID USING THE URINAL AND DID NOT WANT A CATHETER AT THIS TIME. BATH AND LINEN CHANGE THIS SHIFT. NSR ON TELEMETRY. O2 SATURATION MAINTAINING 92-97% ON RA. WILL CONTINUE TO MONITOR.
--- NOTE | 2023-09-22 17:53 | EXP.PN ---
Subjective *Date: 09/22/23 *Time: 17:53 Interval history: seen at bedside, he had episodes of tachycardia, no complains of CP, SOB Exam Data for Last 24 hours Vital signs and Labs for Last 24 Hours: Temp Pulse Resp BP Pulse Ox O2 Del Method O2 Flow Rate 98.3 F 81 18 156/97 H 95 Room Air 100 09/22/23 16:50 09/22/23 16:50 09/22/23 16:50 09/22/23 16:50 09/22/23 16:50 09/22/23 17:00 09/22/23 00:00 Laboratory Results - last 24 hr 09/20/23 15:50: Blood Type B Positive, Antibody Screen Negative, Crossmatch (AHG) See Detail 09/22/23 05:36: WBC 12.3 H D, RBC 2.28 L, Hgb 7.5 L, Hct 22.6 L, MCV 99.1 H, MCH 33.0 H, MCHC 33.3, RDW 17.1, Plt Count 207, MPV 8.2, Neut % (Auto) 92.4 H, Lymph % (Auto) 4.5 L, [place] % (Auto) 2.8, Eos % (Auto) 0.2, Baso % (Auto) 0.1, Neut # (Auto) 11.4 H, Lymph # (Auto) 0.6 L, [place] # (Auto) 0.4, Eos # (Auto) 0.0, Baso # (Auto) 0.0, Total Counted 100, Neutrophils % (Manual) 98 H, Lymphocytes % (Manual) 1 L, Monocytes % (Manual) 1 L, Platelet Estimate Normal, RBC Morphology Normal, Sodium 126 L, Potassium 4.5, Chloride 97 L, Carbon Dioxide 26, Anion Gap 7.5, BUN 25 H, Creatinine 0.80, Estimated Creat Clear 44, Estimated GFR 93, Est GFR ( Amer) 113, Glucose 119 H, Calcium 8.2 L 09/22/23 15:25: WBC 15.3 H, RBC 3.82 L D, Hgb 12.3 L D, Hct 36.0 L, MCV 94.2 H, MCH 32.4 H, MCHC 34.4, RDW 16.9, Plt Count 198, MPV 8.2, Neut % (Auto) 94.0 H, Lymph % (Auto) 2.7 L, [place] % (Auto) 2.7, Eos % (Auto) 0.5, Baso % (Auto) 0.1, Neut # (Auto) 14.4 H, Lymph # (Auto) 0.4 L, [place] # (Auto) 0.4, Eos # (Auto) 0.1, Baso # (Auto) 0.0, Total Counted 100, Neutrophils % (Manual) 99 H, Monocytes % (Manual) 1 L, Platelet Estimate Normal, RBC Morphology Normal, Sodium 125 L, Potassium 4.6, Chloride 94 L, Carbon Dioxide 23, Anion Gap 12.6, BUN 27 H, Creatinine 0.90, Estimated Creat Clear 44, Estimated GFR 81, Est GFR ( Amer) 98, Glucose 123 H, Calcium 8.5, TSH 1.93, Free T4 1.95 I & O for Last 24 hours: Intake & Output 09/19/23 09/20/23 09/21/23 09/22/23 23:59 23:59 23:59 23:59 Intake Total 100 / 340 1140 / 1140 510 / 510 471.927 / 471.927 Output Total 400 / 400 375 / 375 150 / 150 250 / 250 Balance -300 / -60 765 / 765 360 / 360 221.927 / 221.927 Weight 53.722 kg 51.12 kg 52.617 kg 53.025 kg Constitutional Constitutional: no acute distress and thin *Routine HEENT Exam Head: Present normocephalic and atraumatic Eye: Present EOMI and PERRL ENT: Present mucous membranes moist *Routine Neck Exam Neck: Present supple, full ROM and normal carotid upstroke; Absent JVD, carotid bruit or lymphadenopathy *Routine Respiratory Exam Respiratory: Present CTA bilaterally, normal respiratory effort, able to speak in complete sentences and symmetric chest movement *Routine Cardiovascular Exam Cardiovascular: Present RRR, Normal S1 and Normal S2; Absent murmur or gallop *Routine Abdominal Exam Abdominal: Present soft and normoactive bowel sounds; Absent tenderness, distended or organomegaly *Routine Extremities Exam Extremities: Present pulses intact and normal capillary refill; Absent cyanosis, clubbing or edema Comments: Left hip joint pain, the patient is unable to move the left lower extremity. *Routine Skin Exam Skin: Present intact and warm; Absent erythema *Routine Neurological Exam Neurological: Present alert, oriented X3 and CN II-XII intact; Absent sensory deficit or motor deficit Routine Psychiatric Exam Psychiatric: Present normal affect Assessment and Plan *Assessment and plan (1) CAD (coronary artery disease): Status: Acute Category: Medical Code(s): I25.10 - Atherosclerotic heart disease of [place] coronary artery without angina pectoris (2) Abnormal cardiovascular stress test: Status: Acute Category: Medical Code(s): R94.39 - Abnormal result of other cardiovascular function study (3) Hard of hearing: Status: Acute Category: Medical Code(s): H91.90 - Unspecified hearing loss, unspecified ear (4) LOYD (renal artery stenosis): Status: Acute Category: Medical Code(s): I70.1 - Atherosclerosis of renal artery (5) Intermittent claudication: Status: Acute Category: Medical Code(s): I73.9 - Peripheral vascular disease, unspecified (6) Cigarette nicotine dependence: Status: Acute Category: Social Hx Code(s): F17.210 - Nicotine dependence, cigarettes, uncomplicated Plan 78-year-old male CAD. Presented for elective left heart cath due to angina. Status post stenting of left main artery. Discussed case with cardiology, request admission for monitoring overnight due to of coronary artery disease and stent placement. CSD S/p CAD stent - Left heart cath performed. Patient has severe distal left main disease with additional disease in the proximal LAD. Successful stent to the proximal left main artery. Reduced to less than 10% with 1 stent. EF normal - Continue aspirin 81 mg daily, Lipitor 40 mg nightly, Plavix 75 mg daily - cardiology consulted and assisting with care - Continue home regimen with Lasix 20 mg daily as needed - ventriculogram with normal EF fall left hip fracture will need Cephalomedullary nail left proximal femur per ortho orthopedics consulted, patient may need surgery, timing to be determined by ortho, patient is high risk for surgery given recent cardiac history and being on blood thinners with ASA and Plavix surgery on hold due to anemia and low Na level Anemia - Hb is trending down, order fecal occult - pending check iron studies transfuse 2 units PRBCs Hyponatremia - likely due to diuretics, will hold lasix, monitor BMP started on salt tabs Tobacco use disorder: nicotine patch daily as needed COPD: DuoNebs scheduled every 6 hours. Chronic constipation: Continue docusate senna nightly Full code regular diet
[2023-09-22 18:53] LABS: Hematocrit 34.2 % (42.0-52.0)
[2023-09-22] MEDS: MELATONIN 5MG TABLET 10 MG PO (20:19)
[2023-09-22] MEDS: HYDROCODONE/APAP 5/325 MG TABLET 1 TAB PO (20:19)
[2023-09-22] MEDS: ATORVASTATIN 40MG TABLET 40 MG PO (20:20)
[2023-09-22] MEDS: SENNOSIDES 8.6MG/DOCUSATE 50MG TABLET 1 TAB PO (20:20)
[2023-09-22] MEDS: SODIUM CHLORIDE 1,000MG TABLET 500 MG PO (20:20)
[2023-09-22] MEDS: TRAZODONE 50MG TABLET 100 MG PO (22:42)
[2023-09-23] VITALS (17 sets, daily range): BP systolic 88–154; BP diastolic 50–77; PULSE 63–90; RESP 13–25; TEMP 36–36.9; O2SAT 91–100; BMI 18.3
[2023-09-23] MEDS: IPRATROPIUM/ALBUTEROL 3 ML NEB IH ×5 (00:34→23:53)
[2023-09-23 06:33] LABS: Chloride 96 mmol/L (98-107); Potassium 4.3 mmoL/L (3.5-5.1); Sodium 125 mmol/L (136-145)
[2023-09-23 06:36] LABS: Anion Gap 9.3 mEq/L (5-15); Blood Urea Nitrogen 30 mg/dl (9-20); Calcium 8.1 mg/dl (8.4-10.2); Carbon Dioxide 24 mmol/L (22.0-30.0); Creatinine Clearance Estimated 44 mL/min (50-200); Estimated Glomerular Filt Rate 81 ml/min (>60); GFR (African American) 98 ML/MIN (>60); Glucose 118 mg/dl (74-100)
[2023-09-23 07:30] LABS: Eosinophils % 0.1 % (0.1-12.0); Hematocrit 29.9 % (42.0-52.0); Lymphocytes # 0.3 K/mm3 (0.7-4.5); Lymphocytes % 2.5 % (10-50); Mean Corpuscular HGB Conc 34.1 g/dL (31.8-35.4); Mean Corpuscular Hemoglobin 32.5 pg (27.0-31.2); Mean Corpuscular Volume 95.2 fl (80-94); Mean Platelet Volume 8.2 fl (7.4-10.4); Monocytes # 0.4 K/mm3 (0.1-1.0); Monocytes % 2.7 % (1.7-9.3); Neutrophils # 12.2 K/mm3 (1.8-7.8); Neutrophils % 94.7 % (37.0-80.0); Platelet Count 171 K/mm3 (142-424); Red Blood Count 3.14 M/mm3 (4.60-6.20); White Blood Count 12.9 K/mm3 (4.8-10.8)
[2023-09-23 07:52] LABS: MANUAL DIFFERENTIAL MANUAL DIFFERENTIAL (MANUAL DIFF)
[2023-09-23] MEDS: SODIUM CHLORIDE 1,000MG TABLET 500 MG PO ×2 (08:44→20:22)
[2023-09-23] MEDS: ASPIRIN EC 81MG TABLET 81 MG PO (08:44)
[2023-09-23] MEDS: CLOPIDOGREL 75MG TAB 75 MG PO (08:45)
[2023-09-23] MEDS: SODIUM CHLORIDE 0.9% 10ML VIAL 10 ML IV ×2 (08:45→20:21)
[2023-09-23] MEDS: PANTOPRAZOLE 40MG VIAL 40 MG IV ×2 (08:45→20:21)
[2023-09-23 09:56] LABS: Lymphocytes % 4 % (10-50); Monocytes % 2 % (2-9); Neutrophils % 94 % (42-76); Total Cells Counted 100
[2023-09-23 09:57] LABS: Platelet Estimate Normal; RBC Morphology Normal
--- NOTE | 2023-09-23 10:35 | P.PN_ITS ---
Subjective *Date: 09/23/23 *Time: 10:35 Interval history: Patient relatively comfortable if he does not move. Has pain with moving of the left hip. No new complaints. Ortho Exam (Inpt) Vital signs and Labs for Last 24 Hours: Temp Pulse Resp BP Pulse Ox O2 Del Method O2 Flow Rate 97.5 F L 84 22 109/63 L 91 L Room Air 100 09/23/23 08:00 09/23/23 10:00 09/23/23 10:00 09/23/23 10:00 09/23/23 10:00 09/23/23 10:00 09/22/23 00:00 Laboratory Results - last 24 hr 09/20/23 15:50: Blood Type B Positive, Antibody Screen Negative, Crossmatch ([facility]) See Detail 09/22/23 15:25: WBC 15.3 H, RBC 3.82 L D, Hgb 12.3 L D, Hct 36.0 L, MCV 94.2 H, MCH 32.4 H, MCHC 34.4, RDW 16.9, Plt Count 198, MPV 8.2, Neut % (Auto) 94.0 H, Lymph % (Auto) 2.7 L, [place] % (Auto) 2.7, Eos % (Auto) 0.5, Baso % (Auto) 0.1, Neut # (Auto) 14.4 H, Lymph # (Auto) 0.4 L, [place] # (Auto) 0.4, Eos # (Auto) 0.1, Baso # (Auto) 0.0, Total Counted 100, Neutrophils % (Manual) 99 H, Monocytes % (Manual) 1 L, Platelet Estimate Normal, RBC Morphology Normal, Sodium 125 L, Potassium 4.6, Chloride 94 L, Carbon Dioxide 23, Anion Gap 12.6, BUN 27 H, Creatinine 0.90, Estimated Creat Clear 44, Estimated GFR 81, Est GFR ( Amer) 98, Glucose 123 H, Calcium 8.5, TSH 1.93, Free T4 1.95 09/22/23 18:21: Hgb 12.0 L, Hct 34.2 L 09/23/23 05:22: WBC 12.9 H, RBC 3.14 L, Hct 29.9 L, MCV 95.2 H, MCH 32.5 H, MCHC 34.1, RDW 17.0, Plt Count 171, MPV 8.2, Neut % (Auto) 94.7 H, Lymph % (Auto) 2.5 L, [place] % (Auto) 2.7, Eos % (Auto) 0.1, Baso % (Auto) 0.0 L, Neut # (Auto) 12.2 H, Lymph # (Auto) 0.3 L, [place] # (Auto) 0.4, Eos # (Auto) 0.0, Baso # (Auto) 0.0, Total Counted 100, Neutrophils % (Manual) 94 H, Lymphocytes % (Manual) 4 L, Monocytes % (Manual) 2, Platelet Estimate Normal, RBC Morphology Normal, Sodium 125 L, Potassium 4.3, Chloride 96 L, Carbon Dioxide 24, Anion Gap 9.3, BUN 30 H, Creatinine 0.90, Estimated Creat Clear 44, Estimated GFR 81, Est GFR ( Amer) 98, Glucose 118 H, Calcium 8.1 L I & O for Labs for Last 24 Hours: Intake & Output 09/20/23 09/21/23 09/22/23 09/23/23 23:59 23:59 23:59 23:59 Intake Total 1140 / 1140 510 / 510 711.927 / 711.927 0 / 0 Output Total 375 / 375 150 / 150 350 / 350 0 / 0 Balance 765 / 765 360 / 360 361.927 / 361.927 0 / 0 Weight 112 lb 11.205 oz 116 lb 116 lb 14.4 oz 116 lb 14.402 oz Additional findings:: Left hip: Mild pain with active rolling groin pain to the hip. Mild swelling lower extremity. Assessment and Plan *Assessment and plan (1) Closed intertrochanteric fracture of left hip: Status: Acute Qualifiers: Encounter type: initial encounter Fracture alignment: displaced Qualified Code(s): S72.142A - Displaced intertrochanteric fracture of left femur, initial encounter for closed fracture Category: Medical Code(s): S72.142A - Displaced intertrochanteric fracture of left femur, initial encounter for closed fracture Plan His sodium continues to remain low. We will delay surgery today but plan on operative intervention tomorrow if the sodium is above 130.
[2023-09-23] MEDS: NICOTINE 21MG/24HR PATCH 21 MG TD (10:44)
[2023-09-23] MEDS: SODIUM CHLORIDE 3 % 500 ML 25 ML IV (10:44)
[2023-09-23 10:48] LABS: Hemoglobin 10.2 g/dL (14.1-18.0)
--- NOTE | 2023-09-23 11:10 | EXP.CARD.PN ---
Subjective Subjective Date: 09/23/23 Time: 09:00 Principal diagnosis: CAD s/p stenting Interval history: This is an 78-year-old gentleman who presented to the hospital for outpatient left cardiac catheterization underwent complex left main artery stenting into the LAD. He was kept overnight due to the complexity of his procedure and he did fall during his first night of hospitalization and sustained a left intratrochanteric hip fracture. He needs surgical fixation of the left hip. However, his surgery has been delayed due to hyponatremia and anemia. He is stable from a cardiac standpoint at this time. He denies any chest pain or pressure. He denies any shortness of breath or edema. He denies any fever, chills, nausea, vomiting, diarrhea, PND orthopnea. His left hip pain is well-controlled at this time. Exam Data for Last 24 hours Vital signs and Labs for Last 24 Hours: Temp Pulse Resp BP Pulse Ox O2 Del Method O2 Flow Rate 97.5 F L 84 22 109/63 L 91 L Room Air 100 09/23/23 08:00 09/23/23 10:00 09/23/23 10:00 09/23/23 10:00 09/23/23 10:00 09/23/23 10:00 09/22/23 00:00 Laboratory Results - last 24 hr 09/20/23 15:50: Blood Type B Positive, Antibody Screen Negative, Crossmatch (AHG) See Detail 09/22/23 15:25: WBC 15.3 H, RBC 3.82 L D, Hgb 12.3 L D, Hct 36.0 L, MCV 94.2 H, MCH 32.4 H, MCHC 34.4, RDW 16.9, Plt Count 198, MPV 8.2, Neut % (Auto) 94.0 H, Lymph % (Auto) 2.7 L, [place] % (Auto) 2.7, Eos % (Auto) 0.5, Baso % (Auto) 0.1, Neut # (Auto) 14.4 H, Lymph # (Auto) 0.4 L, [place] # (Auto) 0.4, Eos # (Auto) 0.1, Baso # (Auto) 0.0, Total Counted 100, Neutrophils % (Manual) 99 H, Monocytes % (Manual) 1 L, Platelet Estimate Normal, RBC Morphology Normal, Sodium 125 L, Potassium 4.6, Chloride 94 L, Carbon Dioxide 23, Anion Gap 12.6, BUN 27 H, Creatinine 0.90, Estimated Creat Clear 44, Estimated GFR 81, Est GFR ( Amer) 98, Glucose 123 H, Calcium 8.5, TSH 1.93, Free T4 1.95 09/22/23 18:21: Hgb 12.0 L, Hct 34.2 L 09/23/23 05:22: WBC 12.9 H, RBC 3.14 L, Hgb 10.2 L D, Hct 29.9 L, MCV 95.2 H, MCH 32.5 H, MCHC 34.1, RDW 17.0, Plt Count 171, MPV 8.2, Neut % (Auto) 94.7 H, Lymph % (Auto) 2.5 L, [place] % (Auto) 2.7, Eos % (Auto) 0.1, Baso % (Auto) 0.0 L, Neut # (Auto) 12.2 H, Lymph # (Auto) 0.3 L, [place] # (Auto) 0.4, Eos # (Auto) 0.0, Baso # (Auto) 0.0, Total Counted 100, Neutrophils % (Manual) 94 H, Lymphocytes % (Manual) 4 L, Monocytes % (Manual) 2, Platelet Estimate Normal, RBC Morphology Normal, Sodium 125 L, Potassium 4.3, Chloride 96 L, Carbon Dioxide 24, Anion Gap 9.3, BUN 30 H, Creatinine 0.90, Estimated Creat Clear 44, Estimated GFR 81, Est GFR ( Amer) 98, Glucose 118 H, Calcium 8.1 L I & O for Last 24 hours: Intake & Output 09/20/23 09/21/23 09/22/23 09/23/23 23:59 23:59 23:59 23:59 Intake Total 1140 / 1140 510 / 510 711.927 / 711.927 0 / 0 Output Total 375 / 375 150 / 150 350 / 350 0 / 0 Balance 765 / 765 360 / 360 361.927 / 361.927 0 / 0 Weight 112 lb 11.205 oz 116 lb 116 lb 14.4 oz 116 lb 14.402 oz Constitutional Constitutional: no acute distress and thin *Routine HEENT Exam Head: Present normocephalic and atraumatic ENT: Present mucous membranes moist *Routine Neck Exam Neck: Present supple, full ROM and normal carotid upstroke; Absent JVD, carotid bruit or lymphadenopathy *Routine Respiratory Exam Respiratory: Present CTA bilaterally, normal respiratory effort, able to speak in complete sentences and symmetric chest movement *Routine Cardiovascular Exam Cardiovascular: Present RRR, Normal S1 and Normal S2; Absent murmur or gallop *Routine Abdominal Exam Abdominal: Present soft and normoactive bowel sounds; Absent tenderness, distended or organomegaly *Routine Extremities Exam Extremities: Present edema, pulses intact and normal capillary refill; Absent cyanosis or clubbing Comments: Left hip joint pain, the patient is unable to move the left lower extremity. *Routine Skin Exam Skin: Present intact and warm; Absent erythema *Routine Neurological Exam Neurological: Present alert, oriented X3 and CN II-XII intact; Absent sensory deficit or motor deficit Routine Psychiatric Exam Psychiatric: Present normal affect Progress Note: A&P Assessment and plan (1) Closed intertrochanteric fracture of left hip: Status: Acute (2) Paroxysmal atrial fibrillation: Status: Acute (3) Left hip pain: Status: Acute (4) CAD (coronary artery disease): Status: Acute (5) Hyponatremia: Status: Acute (6) Tobacco use disorder, continuous: Status: Acute (7) Anemia: Status: Acute (8) Hard of hearing: Status: Acute Assessment and Plan Assessment and Plan for All Diagnoses:: Plan: 1. This is an 78-year-old gentleman who presented to the hospital to undergo outpatient left cardiac catheterization. The patient did have a complex procedure with stenting to the left main extending into the LAD. Also there was concern about him going home alone since he is elderly and having sedation so he was kept overnight for further observation. The patient was found on the floor through the night during the first night of hospitalization. He does have a fractured left hip from the fall. The patient needs surgical fixation of the left hip but his surgery has been delayed due to persistent hyponatremia and anemia. 2. The patient is hyponatremic with a sodium of [address] Pendleton and Dr. Villanueva are concerned that the patient may have stressed SIADH. Will put him on a 1.5 L fluid restriction in 24 hours. 3. The patient is also anemic. The patient is anemic and his hemoglobin is stable in the 10 range today. 4. Coronary artery disease is stable. The patient will need to continue dual antiplatelet therapy with Plavix and aspirin. 5. His blood pressure is acceptable. His blood pressure is too low to add a beta-samantha or MARY BETH inhibitor. 6. His LDL goal is less than 55. His LDL is 39. He is on a statin. 7. Tobacco cessation is highly advised and counseled. Nicotine patch has been prescribed. 8. As mentioned above the patient did fall and has a left intratrochanteric hip fracture. The patient's dual antiplatelet therapy ideally should be continued in the setting of very recent left main stenting. He is high risk to proceed with surgery due to recent left main stenting and on dual anti-platelet therapy. The patient will more than likely bleed during the surgery due to the use of dual antiplatelet therapy. Transfuse with packed red blood cells for hemoglobin goal greater than 8. 9. The patient did have short bursts of paroxysmal atrial fibrillation. He remains on an amiodarone drip at this time and is in sinus rhythm. Dr. Pendleton has recommended the patient remain on an amiodarone drip until he has surgery. 10. Further recommendations will be made pending the patient's response to treatment. Thank you for the opportunity to help participate in the care of this patient. All recommendations and orders are per Dr. Cheng.
--- NOTE | 2023-09-23 16:30 | PC.NURSE ---
Patient confused to place but easily reoriented. No pain reported by patient. VS stable and patient remained on room air. Patient turned from back to right side q2. Patient remained normal sinus rhythm on amio drip
--- NOTE | 2023-09-23 17:50 | P.PN_ITS ---
Subjective *Date: 09/23/23 *Time: 17:50 Interval history: patient is seen at bedside, appears weak and frail, alert awake, holding conversations, no acute events overnight, Hb improved after blood transfusion Exam Data for Last 24 hours Vital signs and Labs for Last 24 Hours: Temp Pulse Resp BP Pulse Ox O2 Del Method O2 Flow Rate 96.8 F L 78 22 110/70 91 L Room Air 100 09/23/23 16:00 09/23/23 16:00 09/23/23 16:00 09/23/23 16:00 09/23/23 16:00 09/23/23 16:59 09/22/23 00:00 Laboratory Results - last 24 hr 09/20/23 15:50: Crossmatch (AHG) See Detail 09/22/23 18:21: Hgb 12.0 L, Hct 34.2 L 09/23/23 05:22: WBC 12.9 H, RBC 3.14 L, Hgb 10.2 L D, Hct 29.9 L, MCV 95.2 H, MCH 32.5 H, MCHC 34.1, RDW 17.0, Plt Count 171, MPV 8.2, Neut % (Auto) 94.7 H, Lymph % (Auto) 2.5 L, [place] % (Auto) 2.7, Eos % (Auto) 0.1, Baso % (Auto) 0.0 L, Neut # (Auto) 12.2 H, Lymph # (Auto) 0.3 L, [place] # (Auto) 0.4, Eos # (Auto) 0.0, Baso # (Auto) 0.0, Total Counted 100, Neutrophils % (Manual) 94 H, Lymphocytes % (Manual) 4 L, Monocytes % (Manual) 2, Platelet Estimate Normal, RBC Morphology Normal, Sodium 125 L, Potassium 4.3, Chloride 96 L, Carbon Dioxide 24, Anion Gap 9.3, BUN 30 H, Creatinine 0.90, Estimated Creat Clear 44, Estimated GFR 81, Est GFR ( Amer) 98, Glucose 118 H, Calcium 8.1 L I & O for Last 24 hours: Intake & Output 09/20/23 09/21/23 09/22/23 09/23/23 23:59 23:59 23:59 23:59 Intake Total 1140 / 1140 510 / 510 711.927 / 711.927 274 / 274 Output Total 375 / 375 150 / 150 350 / 350 100 / 100 Balance 765 / 765 360 / 360 361.927 / 361.927 174 / 174 Weight 51.12 kg 52.617 kg 53.025 kg 53.025 kg Constitutional Constitutional: no acute distress, thin and cachectic Comments: weak and frail *Routine HEENT Exam Head: Present normocephalic and atraumatic Eye: Present EOMI and PERRL ENT: Present mucous membranes moist *Routine Neck Exam Neck: Present supple, full ROM and normal carotid upstroke; Absent JVD, carotid bruit or lymphadenopathy *Routine Respiratory Exam Respiratory: Present CTA bilaterally, normal respiratory effort, able to speak in complete sentences and symmetric chest movement *Routine Cardiovascular Exam Cardiovascular: Present RRR, Normal S1 and Normal S2; Absent murmur or gallop *Routine Abdominal Exam Abdominal: Present soft and normoactive bowel sounds; Absent tenderness, distended or organomegaly *Routine Extremities Exam Extremities: Present pulses intact and normal capillary refill; Absent cyanosis, clubbing or edema Comments: Left hip joint pain, the patient is unable to move the left lower extremity. *Routine Skin Exam Skin: Present intact and warm; Absent erythema *Routine Neurological Exam Neurological: Present alert, oriented X3 and CN II-XII intact; Absent sensory deficit or motor deficit Routine Psychiatric Exam Psychiatric: Present normal affect Assessment and Plan *Assessment and plan (1) CAD (coronary artery disease): Status: Acute Category: Medical Code(s): I25.10 - Atherosclerotic heart disease of [place] coronary artery without angina pectoris (2) Abnormal cardiovascular stress test: Status: Acute Category: Medical Code(s): R94.39 - Abnormal result of other cardiovascular function study (3) Hard of hearing: Status: Acute Category: Medical Code(s): H91.90 - Unspecified hearing loss, unspecified ear (4) LOYD (renal artery stenosis): Status: Acute Category: Medical Code(s): I70.1 - Atherosclerosis of renal artery (5) Intermittent claudication: Status: Acute Category: Medical Code(s): I73.9 - Peripheral vascular disease, unspecified (6) Cigarette nicotine dependence: Status: Acute Category: Social Hx Code(s): F17.210 - Nicotine dependence, cigarettes, uncomplicated Plan 78-year-old male CAD. Presented for elective left heart cath due to angina. Status post stenting of left main artery. Discussed case with cardiology, request admission for monitoring overnight due to of coronary artery disease and stent placement. CSD S/p CAD stent - Left heart cath performed. Patient has severe distal left main disease with additional disease in the proximal LAD. Successful stent to the proximal left main artery. Reduced to less than 10% with 1 stent. EF normal - Continue aspirin 81 mg daily, Lipitor 40 mg nightly, Plavix 75 mg daily - cardiology consulted and assisting with care - ventriculogram with normal EF Hold lasix given hyponatremia fall left hip fracture will need Cephalomedullary nail left proximal femur per ortho orthopedics consulted, patient may need surgery, timing to be determined by ortho, patient is high risk for surgery given recent cardiac history and being on blood thinners with ASA and Plavix surgery on hold due to anemia and low Na level Anemia - Hb is trending down, order fecal occult - pending check iron studies transfuse 2 units PRBCs Hyponatremia - likely due to diuretics, will hold lasix, monitor BMP DC salt tabs started on 3% saline, closely monitor BMP, check BMP stat, low threshold to stop if Na is > 130 Tobacco use disorder: nicotine patch daily as needed COPD: DuoNebs scheduled every 6 hours. Chronic constipation: Continue docusate senna nightly Full code regular diet
[2023-09-23 18:34] LABS: Chloride 98 mmol/L (98-107); Sodium 126 mmol/L (136-145)
[2023-09-23 18:35] LABS: Potassium 4.3 mmoL/L (3.5-5.1)
[2023-09-23 18:38] LABS: Anion Gap 10.3 mEq/L (5-15); Blood Urea Nitrogen 27 mg/dl (9-20); Calcium 8.1 mg/dl (8.4-10.2); Carbon Dioxide 22 mmol/L (22.0-30.0); Creatinine Clearance Estimated 44 mL/min (50-200); Estimated Glomerular Filt Rate 109 ml/min (>60); GFR (African American) 131 ML/MIN (>60); Glucose 124 mg/dl (74-100); Iron 36 ug/dL (49-181)
[2023-09-23 18:47] LABS: Total Iron Binding Capacity 218 ug/dL (261-462)
[2023-09-23 19:13] LABS: Ferritin 328 ng/ml (17.9-464)
[2023-09-23] MEDS: TRAZODONE 50MG TABLET 100 MG PO (20:21)
[2023-09-23] MEDS: AMIODARONE HCL 900 MG in DEXTROSE 5 % IN WATER 500 ML 17.3 MG IV (20:21)
[2023-09-23] MEDS: HYDROCODONE/APAP 5/325 MG TABLET 1 TAB PO (20:22)
[2023-09-23] MEDS: SENNOSIDES 8.6MG/DOCUSATE 50MG TABLET 1 TAB PO (20:22)
[2023-09-23] MEDS: MELATONIN 5MG TABLET 10 MG PO (20:22)
[2023-09-23] MEDS: ATORVASTATIN 40MG TABLET 40 MG PO (20:22)
--- NOTE | 2023-09-23 21:47 | PC.NURSE ---
Family has left to go home. Patient resting in bed at this time
[2023-09-24] VITALS (15 sets, daily range): BP systolic 92–119; BP diastolic 46–72; PULSE 70–91; RESP 16–22; TEMP 36.7–37.4; O2SAT 90–100; BMI 18.3
--- NOTE | 2023-09-24 05:57 | PC.NURSE ---
Patient rested well throughout the night. He had minimal urine output, but this seems to be his baseline. Patient Still receiving Amio and 3% NaCh per MAR. Patient is was turned every 2 hours for the first part of the shift; however, when RN went to turn him around midnight he was adamant not to move him and to just let him sleep. No more turns since midnight, so patient has slept on mostly his right side since. VSS. Remains in sinus rhythm with RBBB.
[2023-09-24] MEDS: IPRATROPIUM/ALBUTEROL 3 ML NEB IH (06:14)
[2023-09-24 06:47] LABS: Eosinophils % 0.4 % (0.1-12.0); Hematocrit 28.6 % (42.0-52.0); Hemoglobin 9.2 g/dL (14.1-18.0); Lymphocytes # 0.3 K/mm3 (0.7-4.5); Lymphocytes % 6.5 % (10-50); Mean Corpuscular HGB Conc 32.2 g/dL (31.8-35.4); Mean Corpuscular Hemoglobin 31.3 pg (27.0-31.2); Mean Corpuscular Volume 97.1 fl (80-94); Monocytes # 0.3 K/mm3 (0.1-1.0); Monocytes % 5.7 % (1.7-9.3); Neutrophils # 4.4 K/mm3 (1.8-7.8); Neutrophils % 87.4 % (37.0-80.0); Platelet Count 187 K/mm3 (142-424); Red Blood Count 2.95 M/mm3 (4.60-6.20); Red Cell Distribution Width 17.1 % (11.5-17.5)
[2023-09-24 06:59] LABS: Chloride 103 mmol/L (98-107); Potassium 4.1 mmoL/L (3.5-5.1); Sodium 130 mmol/L (136-145)
[2023-09-24 07:02] LABS: Blood Urea Nitrogen 25 mg/dl (9-20); Creatinine Clearance Estimated 44 mL/min (50-200); Estimated Glomerular Filt Rate 93 ml/min (>60); GFR (African American) 113 ML/MIN (>60)
[2023-09-24 07:03] LABS: Anion Gap 7.1 mEq/L (5-15); Calcium 8.2 mg/dl (8.4-10.2); Carbon Dioxide 24 mmol/L (22.0-30.0); Glucose 100 mg/dl (74-100)
[2023-09-24 07:06] LABS: MANUAL DIFFERENTIAL MANUAL DIFFERENTIAL (MANUAL DIFF)
[2023-09-24 08:07] LABS: Lymphocytes % 5 % (10-50); Monocytes % 4 % (2-9); Neutrophils % 91 % (42-76); Total Cells Counted 100
[2023-09-24 08:10] LABS: Platelet Estimate Normal; RBC Morphology Normal
[2023-09-24] MEDS: PANTOPRAZOLE 40MG VIAL 40 MG IV ×2 (08:37→21:02)
[2023-09-24] MEDS: CLOPIDOGREL 75MG TAB 75 MG PO (12:07)
[2023-09-24] MEDS: SODIUM CHLORIDE 1,000MG TABLET 500 MG PO ×2 (12:08→21:04)
[2023-09-24] MEDS: ASPIRIN EC 81MG TABLET 81 MG PO (12:08)
[2023-09-24] MEDS: NICOTINE 21MG/24HR PATCH 21 MG TD (12:25)
[2023-09-24] MEDS: HYDROCODONE/APAP 5/325 MG TABLET 1 TAB PO (12:25)
--- NOTE | 2023-09-24 14:59 | P.PN_ITS ---
Subjective *Date: 09/24/23 *Time: 14:59 Interval history: patient is seen at bedside, appears weak and frail, alert awake, holding conversations, no acute events overnight, Hb improved after blood transfusion but trending down again, no BM yet Exam Data for Last 24 hours Vital signs and Labs for Last 24 Hours: Temp Pulse Resp BP Pulse Ox O2 Del Method O2 Flow Rate 98.1 F 84 20 96/63 L 100 Room Air 100 09/24/23 08:00 09/24/23 12:00 09/24/23 12:00 09/24/23 12:00 09/24/23 12:00 09/24/23 13:05 09/22/23 00:00 Laboratory Results - last 24 hr 09/20/23 15:50: Crossmatch ([facility]) See Detail 09/23/23 18:00: Sodium 126 L, Potassium 4.3, Chloride 98, Carbon Dioxide 22, Anion Gap 10.3, BUN 27 H, Creatinine 0.70 D, Estimated Creat Clear 44, Estimated GFR 109, Est GFR ( Amer) 131 D, Glucose 124 H, Calcium 8.1 L, Iron 36 L, TIBC 218 L, Iron Saturation 16.88497, Ferritin 328 D 09/24/23 06:29: WBC 5.0 D, RBC 2.95 L, Hgb 9.2 L, Hct 28.6 L, MCV 97.1 H, MCH 31.3 H, MCHC 32.2, RDW 17.1, Plt Count 187, MPV 9.0, Neut % (Auto) 87.4 H, Lymph % (Auto) 6.5 L, [place] % (Auto) 5.7, Eos % (Auto) 0.4, Baso % (Auto) 0.0 L, Neut # (Auto) 4.4, Lymph # (Auto) 0.3 L, [place] # (Auto) 0.3, Eos # (Auto) 0.0, Baso # (Auto) 0.0, Total Counted 100, Neutrophils % (Manual) 91 H, Lymphocytes % (Manual) 5 L, Monocytes % (Manual) 4, Platelet Estimate Normal, RBC Morphology Normal, Sodium 130 L, Potassium 4.1, Chloride 103, Carbon Dioxide 24, Anion Gap 7.1, BUN 25 H, Creatinine 0.80, Estimated Creat Clear 44, Estimated GFR 93, Est GFR ( Amer) 113, Glucose 100, Calcium 8.2 L I & O for Last 24 hours: Intake & Output 09/21/23 09/22/23 09/23/23 09/24/23 23:59 23:59 23:59 23:59 Intake Total 510 / 510 711.927 / 711.927 877.823 / 4600.081 2708 / 1154 Output Total 150 / 150 350 / 350 200 / 300 225 / 225 Balance 360 / 360 361.927 / 361.927 677.823 / 1496.823 929 / 929 Weight 52.617 kg 53.025 kg 53.025 kg 53.025 kg Constitutional Constitutional: no acute distress *Routine HEENT Exam Head: Present normocephalic Eye: Present EOMI and PERRL ENT: Present mucous membranes moist *Routine Neck Exam Neck: Present supple; Absent lymphadenopathy *Routine Respiratory Exam Respiratory: Present CTA bilaterally *Routine Cardiovascular Exam Cardiovascular: Present RRR *Routine Abdominal Exam Abdominal: Present soft and normoactive bowel sounds; Absent tenderness *Routine Extremities Exam Extremities: Absent cyanosis, clubbing or edema *Routine Skin Exam Skin: Present warm; Absent rash *Routine Neurological Exam Neurological: Present alert and oriented X3 Assessment and Plan *Assessment and plan (1) CAD (coronary artery disease): Status: Acute Category: Medical Code(s): I25.10 - Atherosclerotic heart disease of [place] coronary artery without angina pectoris (2) Abnormal cardiovascular stress test: Status: Acute Category: Medical Code(s): R94.39 - Abnormal result of other cardiovascular function study (3) Hard of hearing: Status: Acute Category: Medical Code(s): H91.90 - Unspecified hearing loss, unspecified ear (4) LOYD (renal artery stenosis): Status: Acute Category: Medical Code(s): I70.1 - Atherosclerosis of renal artery (5) Intermittent claudication: Status: Acute Category: Medical Code(s): I73.9 - Peripheral vascular disease, unspecified (6) Cigarette nicotine dependence: Status: Acute Category: Social Hx Code(s): F17.210 - Nicotine dependence, cigarettes, uncomplicated Plan 78-year-old male CAD. Presented for elective left heart cath due to angina. Status post stenting of left main artery. Discussed case with cardiology, request admission for monitoring overnight due to of coronary artery disease and stent placement. S/p CAD stent - Left heart cath performed. Patient has severe distal left main disease with additional disease in the proximal LAD. Successful stent to the proximal left main artery. Reduced to less than 10% with 1 stent. EF normal - Continue aspirin 81 mg daily, Lipitor 40 mg nightly, Plavix 75 mg daily - cardiology consulted and assisting with care - ventriculogram with normal EF continue hold lasix given hyponatremia fall left hip fracture will need Cephalomedullary nail left proximal femur per ortho orthopedics consulted, patient may need surgery, timing to be determined by ortho, patient is high risk for surgery given recent cardiac history and being on blood thinners with ASA and Plavix surgery on hold due to anemia and low Na level likely surgery on tuesday Anemia - Hb is trending down, order fecal occult - pending check iron studies transfuse 2 units PRBCs Hyponatremia - likely due to diuretics, will hold lasix, monitor BMP DC salt tabs dc 3% saline, closely monitor BMP, check BMP Na 130 Tobacco use disorder: nicotine patch daily as needed COPD: DuoNebs scheduled every 6 hours. Chronic constipation: Continue docusate senna nightly Full code regular diet
--- NOTE | 2023-09-24 17:13 | PC.NURSE ---
Patient able to sleep and rest during shift. VS stable and patient remained on room air. Patient confused to place and situations at times but easily reoriented. No other changes.
--- NOTE | 2023-09-24 20:25 | PC.NURSE ---
Came on shift and the patient hadn't voided since 9am. At 9am he voided 125ml. Patient was bladder scanned and found to have >650ml in the bladder. The bladder was distended and firm to the touch. Patient was awoken and asked if her could decided. He voided 100ml. RN then called provider [employer] aircrewman and he stated to go ahead and anchor a Bonner. a 16French Bonner was attempt and met tremendous resistance. A 14 [place] Couda was tried and successfully placed. 675ml was drained from the bladder and a specimen was sent to the lab.
[2023-09-24] MEDS: ATORVASTATIN 40MG TABLET 40 MG PO (21:02)
[2023-09-24] MEDS: SENNOSIDES 8.6MG/DOCUSATE 50MG TABLET 1 TAB PO (21:02)
[2023-09-24 21:15] LABS: Microscopic, Urine URINE MICROSCOPIC (MICROSCOPIC)
[2023-09-24 21:39] LABS: Blood, Urine Negative (Negative); Color,Urine YELLOW (Yellow); Glucose,Urine (UA) Negative (Negative); Ketones,Urine Negative (Negative); Leukocyte Esterase,Urine Negative (Negative); Nitrate,Urine Negative (Negative); Protein,Urine TRACE (Negative); Specific Gravity, Urine 1.025 (1.005-1.030)
[2023-09-24 21:46] LABS: Bilirubin,Urine 1+ (Negative)
[2023-09-24 21:47] LABS: Appearance,Urine Clear (Clear)
[2023-09-24 22:05] LABS: Bacteria,Urine 1+ /lpf; WBC,Urine Occasional #/hpf (0-3)
[2023-09-24 22:06] LABS: Mucus,Urine 1+ /lpf
[2023-09-25] VITALS (16 sets, daily range): BP systolic 96–116; BP diastolic 59–77; PULSE 70–90; RESP 17–22; TEMP 36.6–36.9; O2SAT 90–100; BMI 18.3
[2023-09-25] MEDS: IPRATROPIUM/ALBUTEROL 3 ML NEB IH ×5 (00:22→23:14)
[2023-09-25] MEDS: AMIODARONE HCL 900 MG in DEXTROSE 5 % IN WATER 500 ML 17.3 MG IV (02:17)
--- NOTE | 2023-09-25 05:56 | PC.NURSE ---
After the byrne was placed the patient did get to rest through the night. Patient coughed up a lot of [place] colored sputum and that was sent down for a specimen. Patient does sound better after coughing that sputum up and doing breathing treatments through the night. Patient is alert to person and birthday and sometimes situation. Patient is very [place] [employer] which sometimes makes it difficult to asses mentation. remains on Amnio drip until surgery. No other changes
[2023-09-25] MEDS: CLOPIDOGREL 75MG TAB 75 MG PO (07:28)
[2023-09-25] MEDS: PANTOPRAZOLE 40MG VIAL 40 MG IV ×2 (07:28→20:32)
[2023-09-25] MEDS: SODIUM CHLORIDE 0.9% 10ML VIAL 10 ML IV ×2 (07:28→20:32)
[2023-09-25] MEDS: SODIUM CHLORIDE 1,000MG TABLET 500 MG PO ×2 (07:28→20:33)
[2023-09-25] MEDS: ASPIRIN EC 81MG TABLET 81 MG PO (07:28)
[2023-09-25 08:22] LABS: Eosinophils % 0.3 % (0.1-12.0); Hematocrit 29.9 % (42.0-52.0); Lymphocytes # 0.4 K/mm3 (0.7-4.5); Lymphocytes % 8.9 % (10-50); Mean Corpuscular HGB Conc 33.5 g/dL (31.8-35.4); Mean Corpuscular Hemoglobin 32.1 pg (27.0-31.2); Mean Corpuscular Volume 96.1 fl (80-94); Mean Platelet Volume 8.8 fl (7.4-10.4); Monocytes # 0.3 K/mm3 (0.1-1.0); Monocytes % 7.6 % (1.7-9.3); Neutrophils # 3.2 K/mm3 (1.8-7.8); Neutrophils % 83.2 % (37.0-80.0); Platelet Count 207 K/mm3 (142-424); Red Blood Count 3.11 M/mm3 (4.60-6.20); Red Cell Distribution Width 16.8 % (11.5-17.5); White Blood Count 3.8 K/mm3 (4.8-10.8)
[2023-09-25 08:26] LABS: Chloride 102 mmol/L (98-107); Sodium 130 mmol/L (136-145)
[2023-09-25 08:27] LABS: Potassium 4.4 mmoL/L (3.5-5.1)
[2023-09-25 08:29] LABS: Blood Urea Nitrogen 25 mg/dl (9-20); Creatinine Clearance Estimated 44 mL/min (50-200); Estimated Glomerular Filt Rate 93 ml/min (>60); GFR (African American) 113 ML/MIN (>60)
[2023-09-25 08:30] LABS: Anion Gap 9.4 mEq/L (5-15); Calcium 8.2 mg/dl (8.4-10.2); Carbon Dioxide 23 mmol/L (22.0-30.0); Glucose 142 mg/dl (74-100)
[2023-09-25] MEDS: NICOTINE 21MG/24HR PATCH 21 MG TD (11:45)
[2023-09-25] MEDS: HYDROCODONE/APAP 5/325 MG TABLET 1 TAB PO (11:46)
--- NOTE | 2023-09-25 15:16 | EXP.PN ---
Subjective *Date: 09/25/23 *Time: 15:16 Interval history: patient is seen at bedside, no acute events overnight, alert awake holding conversations, friends and family at bedisde Exam Data for Last 24 hours Vital signs and Labs for Last 24 Hours: Temp Pulse Resp BP Pulse Ox O2 Del Method O2 Flow Rate 98.4 F 86 21 108/67 L 100 Room Air 100 09/25/23 04:00 09/25/23 12:00 09/25/23 12:00 09/25/23 12:00 09/25/23 12:00 09/25/23 13:00 09/22/23 00:00 Laboratory Results - last 24 hr 09/24/23 20:10: Urine Color Yellow, Urine Appearance Clear, Urine pH 6.0, Ur Specific [place] 1.025, Urine Protein Trace, Urine Glucose (UA) Negative, Urine Ketones Negative, Urine Blood Negative, Urine Nitrate Negative, Urine Bilirubin 1+ A, Urine Urobilinogen 1.0, Ur Leukocyte Esterase Negative, Urine RBC None, Urine WBC Occasional, Ur Squamous Epith Cells 5-10, Urine Bacteria 1+, Hyaline Casts 3-5, Urine Mucus 1+ 09/25/23 07:45: WBC 3.8 L, RBC 3.11 L, Hgb 10.0 L, Hct 29.9 L, MCV 96.1 H, MCH 32.1 H, MCHC 33.5, RDW 16.8, Plt Count 207, MPV 8.8, Neut % (Auto) 83.2 H, Lymph % (Auto) 8.9 L, [place] % (Auto) 7.6, Eos % (Auto) 0.3, Baso % (Auto) 0.0 L, Neut # (Auto) 3.2, Lymph # (Auto) 0.4 L, [place] # (Auto) 0.3, Eos # (Auto) 0.0, Baso # (Auto) 0.0, Sodium 130 L, Potassium 4.4, Chloride 102, Carbon Dioxide 23, Anion Gap 9.4, BUN 25 H, Creatinine 0.80, Estimated Creat Clear 44, Estimated GFR 93, Est GFR ( Amer) 113, Glucose 142 H, Calcium 8.2 L I & O for Last 24 hours: Intake & Output 09/22/23 09/23/23 09/24/23 09/25/23 23:59 23:59 23:59 23:59 Intake Total 711.927 / 711.927 877.823 / 1632.697 9936 / 1254 1727.847 / 1727.847 Output Total 350 / 350 200 / 300 1575 / 1575 220 / 220 Balance 361.927 / 361.927 677.823 / 1496.823 -321 / -321 1507.847 / 1507.847 Weight 53.025 kg 53.025 kg 53.025 kg 53.025 kg Constitutional Constitutional: no acute distress *Routine HEENT Exam Head: Present normocephalic Eye: Present EOMI and PERRL ENT: Present mucous membranes moist *Routine Neck Exam Neck: Present supple; Absent lymphadenopathy *Routine Respiratory Exam Respiratory: Present CTA bilaterally *Routine Cardiovascular Exam Cardiovascular: Present RRR *Routine Abdominal Exam Abdominal: Present soft and normoactive bowel sounds; Absent tenderness *Routine Extremities Exam Extremities: Absent cyanosis, clubbing or edema Comments: left leg pain on movement. *Routine Skin Exam Skin: Present warm; Absent rash *Routine Neurological Exam Neurological: Present alert and oriented X3 Assessment and Plan *Assessment and plan (1) CAD (coronary artery disease): Status: Acute Category: Medical Code(s): I25.10 - Atherosclerotic heart disease of [place] coronary artery without angina pectoris (2) Abnormal cardiovascular stress test: Status: Acute Category: Medical Code(s): R94.39 - Abnormal result of other cardiovascular function study (3) Hard of hearing: Status: Acute Category: Medical Code(s): H91.90 - Unspecified hearing loss, unspecified ear (4) LOYD (renal artery stenosis): Status: Acute Category: Medical Code(s): I70.1 - Atherosclerosis of renal artery (5) Intermittent claudication: Status: Acute Category: Medical Code(s): I73.9 - Peripheral vascular disease, unspecified (6) Cigarette nicotine dependence: Status: Acute Category: Social Hx Code(s): F17.210 - Nicotine dependence, cigarettes, uncomplicated Plan 78-year-old male CAD. Presented for elective left heart cath due to angina. Status post stenting of left main artery. Discussed case with cardiology, request admission for monitoring overnight due to of coronary artery disease and stent placement. S/p CAD stent - Left heart cath performed. Patient has severe distal left main disease with additional disease in the proximal LAD. Successful stent to the proximal left main artery. Reduced to less than 10% with 1 stent. EF normal - Continue aspirin 81 mg daily, Lipitor 40 mg nightly, Plavix 75 mg daily - cardiology consulted and assisting with care - ventriculogram with normal EF continue hold lasix given hyponatremia fall left hip fracture will need Cephalomedullary nail left proximal femur per ortho orthopedics consulted, patient may need surgery, timing to be determined by ortho, patient is high risk for surgery given recent cardiac history and being on blood thinners with ASA and Plavix surgery on hold due to anemia and low Na level likely surgery on tuesday, NPO after midnight, patient and family at bedside agrees with the plan for surgery tomorrow, patient Hb is stable and Na is 130 Anemia - Hb is trending down, order fecal occult - pending check iron studies - iron saturation within normal limits total of 2 units PRBCs infused while in hospital Hyponatremia - likely due to diuretics, will hold lasix, monitor BMP continue salt tabs closely monitor BMP, check BMP Na 130 today, anesthesia requests Na of 130 atleast for surgery Tobacco use disorder: nicotine patch daily as needed COPD: DuoNebs scheduled every 6 hours. Chronic constipation: Continue docusate senna nightly Full code regular diet
[2023-09-25] MEDS: AMIODARONE 200MG TABLET 200 MG PO ×2 (15:31→20:34)
[2023-09-25] MEDS: TRAZODONE 50MG TABLET 100 MG PO (20:33)
[2023-09-25] MEDS: MELATONIN 5MG TABLET 10 MG PO (20:33)
[2023-09-25] MEDS: SENNOSIDES 8.6MG/DOCUSATE 50MG TABLET 1 TAB PO (20:34)
[2023-09-25] MEDS: ATORVASTATIN 40MG TABLET 40 MG PO (20:34)
--- NOTE | 2023-09-25 23:33 | ECG_ITS ---
APPROVED REPORT Exam: Resting ECG HR:87 bpm ECG Measurements Heart Rate 87 AXES SD 176 P 62 QRSd 162 QRS 269 QT 435 T 89 QTc 480 Conclusion SINUS RHYTHM RIGHT AXIS DEVIATION [QRS AXIS > 100] RIGHT BUNDLE BRANCH BLOCK [120+ ms QRS DURATION, UPRIGHT V1, 40+ ms S IN I/aVL/V4/V5/V6] POSSIBLE SEPTAL MYOCARDIAL INFARCTION , OF INDETERMINATE AGE [30 ms Q WAVE IN V1/V2] ABNORMAL ECG UNCONFIRMED REPORT Electronically signed by : BERYL MARTINEZ, 09/27/2023 02:16:01
[2023-09-26] VITALS (22 sets, daily range): BP systolic 91–130; BP diastolic 56–83; PULSE 77–98; RESP 14–21; TEMP 34.2–37; O2SAT 90–100; BMI 18.3
[2023-09-26] MEDS: HYDROCODONE/APAP 5/325 MG TABLET 1 TAB PO (04:53)
[2023-09-26] MEDS: IPRATROPIUM/ALBUTEROL 3 ML NEB IH ×3 (06:22→18:51)
[2023-09-26 07:21] LABS: Anion Gap 10.7 mEq/L (5-15); Blood Urea Nitrogen 22 mg/dl (9-20); Calcium 7.9 mg/dl (8.4-10.2); Carbon Dioxide 19 mmol/L (22.0-30.0); Chloride 100 mmol/L (98-107); Creatinine Clearance Estimated 44 mL/min (50-200); Estimated Glomerular Filt Rate 130 ml/min (>60); GFR (African American) 157 ML/MIN (>60); Glucose 83 mg/dl (74-100); Potassium 4.7 mmoL/L (3.5-5.1); Sodium 125 mmol/L (136-145)
--- NOTE | 2023-09-26 07:58 | EXP.ACUTE.PN ---
Subjective *Date: 09/26/23 *Time: 17:58 Interval history: Patient had mild pain in left hip today. Stable on room air. No nausea, vomiting, diarrhea. N.p.o. awaiting surgery today. Has not had a bowel movement since his heart cath last week. Denies any abdominal pain however. Medical Exam Vital signs and Labs for Last 24 Hours: Vital Signs Temp Pulse Pulse Resp BP Pulse Ox O2 Del Method 09/26/23 06:35 Room Air 09/26/23 06:22 80 09/26/23 06:22 82 09/26/23 05:00 Room Air 09/26/23 04:00 98.1 F 87 21 100/68 L 100 09/26/23 04:00 80 09/26/23 03:00 Room Air 09/26/23 01:00 Room Air 09/26/23 00:00 88 09/26/23 00:00 98.0 F 94 H 20 100/71 L 100 09/25/23 23:51 77 09/25/23 23:51 70 09/25/23 23:00 Room Air 09/25/23 21:00 Room Air 09/25/23 20:00 90 09/25/23 20:00 Room Air 09/25/23 20:00 97.9 F 87 22 116/77 95 09/25/23 18:35 Room Air 09/25/23 18:26 80 09/25/23 18:25 77 09/25/23 17:00 Room Air 09/25/23 16:00 76 20 111/72 100 Room Air 09/25/23 16:00 80 09/25/23 16:00 Room Air 09/25/23 16:00 98.4 F 09/25/23 15:00 Room Air 09/25/23 14:00 79 20 109/66 L 100 Room Air 09/25/23 13:00 Room Air 09/25/23 12:00 90 09/25/23 12:00 86 21 108/67 L 100 Room Air 09/25/23 11:16 79 09/25/23 11:16 79 09/25/23 11:16 100 Room Air 09/25/23 11:00 Room Air 09/25/23 10:00 80 20 99/63 L 100 Room Air 09/25/23 08:54 Room Air 09/25/23 08:00 80 09/25/23 08:00 83 21 101/67 L 99 Room Air Intake and Output 09/25/23 09/25/23 09/26/23 15:59 23:59 07:59 Intake Total 900 / 2154.084 306.237 / 2154.084 120 / 120 Output Total 0 / 470 250 / 470 Balance 900 / 1684.084 56.237 / 1684.084 120 / 120 Intake: Intake, Oral Amount 900 / 1180 60 / 1180 120 / 120 Intake, Total IV Amount 246.237 / 974.084 Output: Output, Urine Amount 0 / 60 Output, Urine Amount (Catheter) 250 / 410 [place] 250 / 250 Other: Number of Unmeasured Voids 0 0 Weight 53.025 kg Patient Weight 09/26/23 23:59 Weight 53.025 kg Laboratory Results - last 24 hr 09/25/23 07:45: WBC 3.8 L, RBC 3.11 L, Hgb 10.0 L, Hct 29.9 L, MCV 96.1 H, MCH 32.1 H, MCHC 33.5, RDW 16.8, Plt Count 207, MPV 8.8, Neut % (Auto) 83.2 H, Lymph % (Auto) 8.9 L, [place] % (Auto) 7.6, Eos % (Auto) 0.3, Baso % (Auto) 0.0 L, Neut # (Auto) 3.2, Lymph # (Auto) 0.4 L, [place] # (Auto) 0.3, Eos # (Auto) 0.0, Baso # (Auto) 0.0, Sodium 130 L, Potassium 4.4, Chloride 102, Carbon Dioxide 23, Anion Gap 9.4, BUN 25 H, Creatinine 0.80, Estimated Creat Clear 44, Estimated GFR 93, Est GFR ( Amer) 113, Glucose 142 H, Calcium 8.2 L 09/26/23 05:46: Sodium 125 L, Potassium 4.7, Chloride 100, Carbon Dioxide 19 L, Anion Gap 10.7, BUN 22 H, Creatinine 0.60 L D, Estimated Creat Clear 44, Estimated GFR 130, Est GFR ( Amer) 157 D, Glucose 83 D, Calcium 7.9 L I & O for Labs for Last 24 Hours: Intake & Output 06/09/24/23 09/25/23 09/26/23 23:59 23:59 23:59 23:59 Intake Total 877.823 / 1892.204 1128 / 1254 2034.084 / 2154.084 120 / 120 Output Total 200 / 300 1575 / 1575 470 / 470 Balance 677.823 / 1496.823 -321 / -321 1564.084 / 1684.084 120 / 120 Weight 53.025 kg 53.025 kg 53.025 kg 53.025 kg Constitutional: Present no acute distress, cachectic and chronically ill appearing Head: Present atraumatic and normocephalic ENT: Present normal exam Respiratory: Present normal respiratory effort; Absent rhonchi, wheezes or crackles Cardiac: Present Reg Rate and Rhythm GI: Present soft and normal bowel sounds; Absent distention or tenderness Extremities: Present normal inspection Comment:: 1+ edema to knees, left leg slightly shorter than right Skin: Present intact; Absent erythema Neuro: Present Grossly Intact, alert, awake, oriented x 3 and moves all extremities Assessment and Plan *Assessment and plan (1) Hyponatremia: Status: Acute Category: Medical Code(s): E87.1 - Hypo-osmolality and hyponatremia (2) Closed intertrochanteric fracture of left hip: Status: Acute Qualifiers: Encounter type: initial encounter Fracture alignment: displaced Qualified Code(s): S72.142A - Displaced intertrochanteric fracture of left femur, initial encounter for closed fracture Category: Medical Code(s): S72.142A - Displaced intertrochanteric fracture of left femur, initial encounter for closed fracture (3) CAD (coronary artery disease): Status: Acute Category: Medical Code(s): I25.10 - Atherosclerotic heart disease of [place] coronary artery without angina pectoris (4) Abnormal cardiovascular stress test: Status: Acute Category: Medical Code(s): R94.39 - Abnormal result of other cardiovascular function study (5) Hard of hearing: Status: Acute Category: Medical Code(s): H91.90 - Unspecified hearing loss, unspecified ear (6) LOYD (renal artery stenosis): Status: Acute Category: Medical Code(s): I70.1 - Atherosclerosis of renal artery (7) Intermittent claudication: Status: Acute Category: Medical Code(s): I73.9 - Peripheral vascular disease, unspecified (8) Cigarette nicotine dependence: Status: Acute Category: Social Hx Code(s): F17.210 - Nicotine dependence, cigarettes, uncomplicated (9) Paroxysmal atrial fibrillation: Status: Acute Category: Medical Code(s): I48.0 - Paroxysmal atrial fibrillation Plan 78-year-old male CAD. Presented for elective left heart cath due to angina. Status post stenting of left main artery. Was admitted for monitoring. Unfortunately fell when trying to get to the bathroom by himself and broke his left hip. Has also developed low sodium. Awaiting improvement in sodium for surgery. Orthopedics and cardiology assisting with care. Anticipate surgery today with sodium improved to approximately 130. Continues to require inpatient management. Problems addressed as follows: Left hip fracture -Orthopedics consulted, discussed case today, plan for cephalomedullary nailing of left proximal femur. -Risk for bleeding due to continued need for dual antiplatelet therapy. - Hydrocodone p.o. for pain as needed every 4 hours -PT/OT eval after surgery. S/p CAD stent Atrial fibrillation - Left heart cath performed. Patient has severe distal left main disease with additional disease in the proximal LAD. Successful stent to the proximal left main artery. Reduced to less than 10% with 1 stent. EF normal - Continue aspirin 81 mg daily, Lipitor 40 mg nightly, Plavix 75 mg daily - cardiology consulted and assisting with care, okay to proceed with surgery - ventriculogram with normal EF - Continue amiodarone 200 mg twice daily Hyponatremia -Concern for component of medication effect versus SIADH due to pain. Sodium 129 on morning labs. Chloride 100. Fluid restrict to 1 L daily -Repeat CBC, CMP, magnesium ordered for the morning. -Continue 500 mg sodium supplementation twice daily Anemia - hemoglobin 9.8. No active signs of bleeding. Iron studies within normal limits. - Transfusion threshold hemoglobin less than 7. Tobacco use disorder: nicotine patch daily as needed COPD: DuoNebs scheduled every 6 hours. Chronic constipation: Continue docusate/senna nightly; no BM since admission. Will add MiraLAX this evening DNR regular diet after surgery
--- NOTE | 2023-09-26 08:20 | P.PN_ITS ---
Subjective Subjective Date: 09/26/23 Time: 08:00 Principal diagnosis: CAD s/p stenting, Left hip fracture Interval history: Patient is resting, morning labs reviewed. Patient is awaiting surgery for left hip fracture which is currently on hold due to ongoing anemia and hyponatremia. Patient on a 1500 mill fluid restriction Exam Data for Last 24 hours Vital signs and Labs for Last 24 Hours: Temp Pulse Resp BP Pulse Ox O2 Del Method O2 Flow Rate 97.8 F 83 15 95/56 L 100 Room Air 100 09/26/23 08:00 09/26/23 08:00 09/26/23 08:00 09/26/23 08:00 09/26/23 08:00 09/26/23 08:00 09/22/23 00:00 Laboratory Results - last 24 hr 09/25/23 07:45: WBC 3.8 L, RBC 3.11 L, Hgb 10.0 L, Hct 29.9 L, MCV 96.1 H, MCH 32.1 H, MCHC 33.5, RDW 16.8, Plt Count 207, MPV 8.8, Neut % (Auto) 83.2 H, Lymph % (Auto) 8.9 L, [place] % (Auto) 7.6, Eos % (Auto) 0.3, Baso % (Auto) 0.0 L, Neut # (Auto) 3.2, Lymph # (Auto) 0.4 L, [place] # (Auto) 0.3, Eos # (Auto) 0.0, Baso # (Auto) 0.0, Sodium 130 L, Potassium 4.4, Chloride 102, Carbon Dioxide 23, Anion Gap 9.4, BUN 25 H, Creatinine 0.80, Estimated Creat Clear 44, Estimated GFR 93, Est GFR ( Amer) 113, Glucose 142 H, Calcium 8.2 L 09/26/23 05:46: Sodium 125 L, Potassium 4.7, Chloride 100, Carbon Dioxide 19 L, Anion Gap 10.7, BUN 22 H, Creatinine 0.60 L D, Estimated Creat Clear 44, Estimated GFR 130, Est GFR ( Amer) 157 D, Glucose 83 D, Calcium 7.9 L I & O for Last 24 hours: Intake & Output 09/23/23 09/24/23 09/25/23 09/26/23 23:59 23:59 23:59 23:59 Intake Total 877.823 / 8140.702 5721 / 1254 2034.084 / 2154.084 120 / 120 Output Total 200 / 300 1575 / 1575 470 / 470 Balance 677.823 / 1496.823 -321 / -321 1564.084 / 1684.084 120 / 120 Weight 116 lb 14.402 oz 116 lb 14.402 oz 116 lb 14.402 oz 116 lb 14.402 oz Constitutional Constitutional: no acute distress *Routine Respiratory Exam Respiratory: Present CTA bilaterally and symmetric chest movement *Routine Cardiovascular Exam Cardiovascular: Present RRR, Normal S1 and Normal S2 *Routine Abdominal Exam Abdominal: Present soft and normoactive bowel sounds; Absent tenderness *Routine Extremities Exam Extremities: Present full ROM and normal capillary refill; Absent edema *Routine Skin Exam Skin: Present intact, dry and warm Detailed Neck Exam: Thyroids Thyroid: Absent bruit Progress Note: A&P Assessment and plan (1) CAD (coronary artery disease): Status: Acute (2) Abnormal cardiovascular stress test: Status: Acute (3) Hard of hearing: Status: Acute (4) LOYD (renal artery stenosis): Status: Acute (5) Intermittent claudication: Status: Acute (6) Cigarette nicotine dependence: Status: Acute Assessment and Plan Assessment and Plan for All Diagnoses:: This is a 78-year-old gentleman who presented outpatient for a left heart catheterization who underwent complex left main artery stenting into the LAD on 09/19/2023. Patient was kept overnight due to the complexity of the procedure and during overnight stay sustained a fall resulting in a left intertrochanteric hip fracture. Surgery has been delayed due to hyponatremia and anemia. Coronary artery disease Left heart catheterization 09/19/2023-severe distal left main disease with additional disease in the proximal LAD, [place] to proximal left main artery. Continue aspirin 81 mg daily, Plavix 75 mg daily, atorvastatin 40 mg daily Echo July 2023 shows normal biventricular function, mild TR, mild PI, increased RVSP at 30-35 Fall Left hip fracture Surgical repair is pending Anemia Recommend to continue DAPT therapy due to recent stenting of the left main. Continue Protonix 40 mg twice daily Recommend keeping hemoglobin greater than 8 status post surgery, can transfuse as needed. Will defer to primary service Hyponatremia Concern for stress SIADH On a 1.5 L fluid restriction Patient did receive sodium chloride tablets 500 twice daily which have now been DC'd Questionable PAF Reported intermittent episodes of PAF throughout the evening last week, patient was started on amiodarone drip which was turned off yesterday. Currently receiving amiodarone 200 mg twice daily Rhythm strips reviewed and no A-fib noted Continue amiodarone 200 mg p.o. twice daily for now CV summary 09/26/2023: Surgery is pending later today to repair left hip fracture. Cardiology will continue to follow along CV meds Aspirin 81 mg daily Plavix 75 mg daily Atorvastatin 40 mg daily Protonix 40 mg p.o. twice daily Amiodarone 200 mg p.o. twice daily
[2023-09-26 08:22] LABS: Basophils % 0.2 % (0.1-2.0); Eosinophils % 0.7 % (0.1-12.0); Hemoglobin 9.8 g/dL (14.1-18.0); Lymphocytes # 0.3 K/mm3 (0.7-4.5); Mean Corpuscular HGB Conc 32.7 g/dL (31.8-35.4); Mean Corpuscular Hemoglobin 32.5 pg (27.0-31.2); Mean Corpuscular Volume 99.4 fl (80-94); Mean Platelet Volume 8.5 fl (7.4-10.4); Monocytes # 0.3 K/mm3 (0.1-1.0); Monocytes % 6.8 % (1.7-9.3); Neutrophils # 3.4 K/mm3 (1.8-7.8); Neutrophils % 85.3 % (37.0-80.0); Platelet Count 224 K/mm3 (142-424); Red Blood Count 3.02 M/mm3 (4.60-6.20); Red Cell Distribution Width 16.8 % (11.5-17.5)
[2023-09-26 08:26] LABS: MANUAL DIFFERENTIAL MANUAL DIFFERENTIAL (MANUAL DIFF)
--- NOTE | 2023-09-26 08:29 | PC.NURSE ---
I spoke with pts POA this morning regarding surgery. verbal consent otained. Surgeon currently @ bedside. Hospitalist aware
[2023-09-26 09:06] LABS: Anion Gap 7.3 mEq/L (5-15); Blood Urea Nitrogen 21 mg/dl (9-20); Calcium 8.3 mg/dl (8.4-10.2); Carbon Dioxide 26 mmol/L (22.0-30.0); Chloride 100 mmol/L (98-107); Creatinine Clearance Estimated 44 mL/min (50-200); Estimated Glomerular Filt Rate 109 ml/min (>60); GFR (African American) 131 ML/MIN (>60); Glucose 95 mg/dl (74-100); Potassium 4.3 mmoL/L (3.5-5.1); Sodium 129 mmol/L (136-145)
--- NOTE | 2023-09-26 09:10 | PC.NURSE ---
spoke with MD regarding pts blood thinners. will continue to give
[2023-09-26] MEDS: ASPIRIN EC 81MG TABLET 81 MG PO (09:27)
[2023-09-26] MEDS: SODIUM CHLORIDE 1,000MG TABLET 500 MG PO ×2 (09:27→20:20)
[2023-09-26] MEDS: AMIODARONE 200MG TABLET 200 MG PO ×2 (09:27→20:20)
[2023-09-26] MEDS: PANTOPRAZOLE 40MG VIAL 40 MG IV ×2 (09:27→20:20)
[2023-09-26] MEDS: CLOPIDOGREL 75MG TAB 75 MG PO (09:27)
--- NOTE | 2023-09-26 11:22 | PC.NURSE ---
pts nephew is @ bedside. spoke with him about surgery. he will be bringing in POA paperwork so we have it on file.
[2023-09-26 11:58] LABS: Lymphocytes % 5 % (10-50); Monocytes % 1 % (2-9); Neutrophils % 94 % (42-76); Platelet Estimate Normal; RBC Morphology Normal; Total Cells Counted 100
--- NOTE | 2023-09-26 14:18 | PC.NURSE ---
pt off floor with surgery
--- NOTE | 2023-09-26 15:34 | P.PNANES_ITS ---
[facility] Disclaimer: The information contained in this section may have been updated after the patient was seen, as this information can be updated by other users. Medical History (Updated 09/22/23 @ 10:56 by Lisa Fan APRN) Paroxysmal atrial fibrillation Difficulty in walking Hard of hearing Abnormal echocardiogram Walker as ambulation aid Weakness Bilateral lower extremity edema Anemia Weight loss Cigarette nicotine dependence Cough Decreased breath sounds of both lungs Alcohol use disorder Tobacco use disorder, continuous Hyponatremia Alcohol intoxication RBBB (right bundle branch block with left anterior fascicular block) Hip fracture Surgical History (Updated 09/20/23 @ 12:28 by Shelton Mendez DO) History of intestinal surgery History of cataract surgery (~2019) Family History Other No significant family history Social History Smoking Status: Current every day smoker tobacco type: cigarettes packs per day: 1 second hand exposure: Yes alcohol intake: current alcohol intake frequency: 3 or more drinks per day counseling provided: none substance use type: denies use current occupational status: retired and other Travel in the last 8 weeks: None household members: none housing: house caffeine: Yes [facility] Anesthesia Checklist Patient Identification Patient Identification: Arm Band and Verbal (Name & ) Structural Data Admitted From: Home Planned Operative Procedure/s: LEFT Femur Cephalomedullary nailing Consent for Planned Operative Procedure(s) Verified: Yes Verified Documents: Surgical Consent and History and Physical NPO Status Verified Time NPO: 00:00 Chart Verification Results Verified: CBC, BMP, ECG and Chest Xray Additional verifications Patient : No Anesthesia Reactions: No Hx Blood Transfusions: Yes Blood Transfusion Reaction: No Cardiovascular Assessment Heart Sounds: S1 & S2 Pulse Rhythm: Irregular Peripheral Edema: No Airway Assessment Mallampati Score:: Class II C-Spine Mobility Assessed: Yes (FROM) TMJ Mobility Assessed: Yes Dentition: Partials (Nothing loose per pt.) Neurological Assessment Level of Consciousness: Awake, Alert, Appropriate and Follows Commands Hx Seizures: No Numbness or tingling in extremities: No Anesthesia Plan Anesthesia Risk discussed: Yes Anesthesia Plan: Verified ASA Class: III Anesthesia Type: General
--- NOTE | 2023-09-26 17:36 | EXP.OP.NOTE ---
Date of procedure: 09/26/23 Pre-op Diagnosis:: Left intertrochanteric hip fracture Post-op Diagnosis:: Same Procedure performed:: Cephalomedullary nailing left proximal femur Surgeon:: Shelton Mendez DO Tile Applicator(s):: Marco [employer] HELPER:: Virgie Campbell Anesthesia: GETA Estimated blood loss (mL): 150 Clinical Note:: 78-year-old male who was significantly ill following heart catheterization falling in the hospital suffering a left intertrochanteric hip fracture. He did significant sodium abnormalities which had improved today he was clinically stable for operative intervention today although at high risk for any surgical intervention given his cardiac problems and recent electrolyte abnormalities and atrial fibrillation. Operative findings:: See dictation Operative note:: Patient is identified preoperatively. Left hip marked with yes and my initials. Transported operative suite. Placed upon the fracture table. General anesthesia was administered and airway was secured. Left leg was then placed in line with the fracture table right leg placed in a semilithotomy position with a well-padded leg andrews. X-ray was brought into identify the intertrochanteric hip fracture on the left side. Using x-ray and the fracture table reduction of the fracture was performed. AP and lateral views were performed to get adequate reduction of the hip fracture. Once this was done the right left hip was prepped and draped in normal sterile fashion. Once prepped and draped final operative timeout performed to identify proper patient procedure and extremity. Everyone involved the case agreed. Is no counter indications beginning. He did receive preoperative antibiotics with Ancef 1 g. Marking pen was used to nelsy 2 fingerbreadths incision 2 fingerbreadths above the greater trochanter and in line with the femur. Skin knife is used to incise the skin and the IT band. Greater trochanter was comminuted and palpated. A guidewire was placed to the tip of the greater trochanter into the canal of the femur. This was seen on the AP and lateral views. Once opening guidewire was in good position and the opening reamer was used proximally. Size 11 TFN, Synthes nail was selected placed over the flexible guidewire. Once it was in adequate position on the x-ray for the lag screw flexible wire was removed. Triple cannulated guide was then utilized and skin was incised the IT band was incised and guidewire was placed in the femoral neck and head seen both on the AP and lateral views to be in good position. Once this was performed and measured to a size 110 the lateral cortex reamer was utilized and the step reamer was placed on 110 and drilled. Then the helical blade was selected 110 mm and impacted into place under direct visualization on the x-ray. Then the locking mechanism for the screw was locked at the superior aspect of the nail. Attention was then brought to the distal guide for the distal sleeve. Skin was incised IT band was incised and the distal locking screw was placed bicortical. Once this was complete the pictures taken the AP and lateral views that show adequate hardware placement. Irrigation of the wounds were performed. IT band was closed with 0 Vicryl suture. Subcutaneous with 2-0 Vicryl suture. Surgical clips in the skin for closure. Sterile hip dressing placed. Patient taken by anesthesia to recovery in stable condition peer Condition: stable Disposition: PACU Complications:: None apparent
--- NOTE | 2023-09-26 17:37 | XR_ITS ---
PROCEDURE INFORMATION: Exam: XR Left Femur Exam date and time: 09/26/2023 5:30 PM Age: 78 years old Clinical indication: Screening exam; Intra op; Patient HX: 1 min 50 secs Other procedure information: fluoro. 18.09 mgy; Additional info: Left femoral nailing TECHNIQUE: Imaging protocol: Radiologic exam of the left femur. Views: 2 views. COMPARISON: US ARTERIAL LOWER EXT REST 08/25/2023 10:22 AM FINDINGS: Tubes, catheters and devices: Total fluoroscopic dose 18.09 mgy Bones/joints: 4 fluoroscopic images. Placement of a screw and intramedullary michael Soft tissues: Unremarkable. Other findings: Total fluoroscopic time 1 minute 50 seconds IMPRESSION: Fluoroscopy as above
--- NOTE | 2023-09-26 17:59 | EXP.ANES.I ---
[facility] Anesthesia Record Part I Anesthesia Record I Intake, IV Amount: 600 Hydration: Adequate Estimated blood loss (mL): 25 Urine output (mL): 50 Blood Products used (#): none Blood Pressure: 120/77 SaO2: 94 Pulse Rate: 81 Airway Patency: Patent Respiratory Rate: 14 Temperature: 97.0 F Patient is:: Drowsy (Arousable) and Stable Stable to PACU at:: 17:50
[2023-09-26] MEDS: LEVALBUTEROL 1.25MG/3ML NEB 1.25 MG IH (18:15)
[2023-09-26] MEDS: CEFAZOLIN SODIUM 1 GM in 0.9 % SODIUM CHLORIDE 50 ML IV ×2 (18:43→23:52)
[2023-09-26] MEDS: ATORVASTATIN 40MG TABLET 40 MG PO (20:20)
[2023-09-26] MEDS: SODIUM CHLORIDE 0.9% 10ML VIAL 10 ML IV (20:20)
[2023-09-26] MEDS: SENNOSIDES 8.6MG/DOCUSATE 50MG TABLET 1 TAB PO (20:20)
[2023-09-26] MEDS: TRAZODONE 50MG TABLET 100 MG PO (20:21)
--- NOTE | 2023-09-26 21:27 | ECG_ITS ---
APPROVED REPORT Exam: Resting ECG HR:88 bpm ECG Measurements Heart Rate 88 AXES FL 220 P 106 QRSd 175 QRS 268 QT 434 T 81 QTc 479 Conclusion SINUS RHYTHM WITH FIRST DEGREE AV BLOCK RIGHT AXIS DEVIATION [QRS AXIS > 100] RIGHT BUNDLE BRANCH BLOCK [120+ ms QRS DURATION, UPRIGHT V1, 40+ ms S IN I/aVL/V4/V5/V6] PROBABLE SEPTAL MYOCARDIAL INFARCTION , OF INDETERMINATE AGE [35 ms Q WAVE IN V1/V2] ABNORMAL ECG UNCONFIRMED REPORT Electronically signed by : BERYL MARTINEZ, 09/27/2023 02:15:14
[2023-09-27] VITALS (16 sets, daily range): BP systolic 106–144; BP diastolic 63–86; PULSE 77–106; RESP 16–22; TEMP 36.1–38.1; O2SAT 90–100; BMI 18.3
[2023-09-27] MEDS: IPRATROPIUM/ALBUTEROL 3 ML NEB IH ×4 (00:01→23:33)
--- NOTE | 2023-09-27 05:12 | PC.NURSE ---
Addendum entered by Shruti Espinoza RN 09/27/23 06:56: Patient has moderate swelling noted in his hands this morning. Pt requested to have his denture put in at this time. Original Note: Patient is alert and oriented x4 despite being hard of hearing and has mumbled but coherent speech. Patient is recovering from his hip replacement surgery as of now; his hip dressing is clean, dry, and intact with no drainage or bleeding at this time. Patient does have a tegaderm flower on his bottom due to pressure. His bottom is slightly red. His scrotum was observed to be purple, bruised, and edematous. The patient has moderate swelling in his lower extremities as well. Patient has complained of pain whenever he is turned and becomes agitated. He has had no other complaints throughout the night and wants to be left to rest. Patient has gotten frequent rectal temps during this shift to monitor his core temp post-op. The katy hugger was removed during the middle of the shift due to sufficient temperature reading per vital sign assessments. Bonner catheter is in place. He has received 2 doses of Cefazolin for post-op protocol this shift and was given his scheduled medications per MAY; patient requested to take one pill at a time. Patient has rhonchi lung sounds and a moist cough at times. He was placed on 2L of oxygen during this shift due to O2 sat readings in the upper 80s; at this time, he has remained within the upper 90s. Patient has been tachycardic on telemetry and has a continuous pulse ox and datascope in place. Patient has stated he is doing well and is sleeping comfortably at this time. No acute changes noted.
[2023-09-27 06:44] LABS: Monocytes # 0.2 K/mm3 (0.1-1.0); Red Cell Distribution Width 16.8 % (11.5-17.5)
[2023-09-27 06:51] LABS: Chloride 106 mmol/L (98-107); Potassium 4.4 mmoL/L (3.5-5.1); Sodium 130 mmol/L (136-145)
[2023-09-27 06:53] LABS: Blood Urea Nitrogen 23 mg/dl (9-20); Creatinine Clearance Estimated 44 mL/min (50-200); Estimated Glomerular Filt Rate 81 ml/min (>60); GFR (African American) 98 ML/MIN (>60)
[2023-09-27 06:54] LABS: Alanine Aminotransferase 19 U/L (12-78); Albumin Level 2.2 g/dl (3.5-5.0); Albumin/Globulin Ratio 0.8 (1.1-1.8); Alkaline Phosphatase 107 U/L (38-126); Anion Gap 8.4 mEq/L (5-15); Aspartate Amino Transferase 27 U/L (17-59); Bilirubin,Total 0.6 mg/dl (0.2-1.3); Calcium 7.7 mg/dl (8.4-10.2); Carbon Dioxide 20 mmol/L (22.0-30.0); Globulin 2.6 g/dL (1.3-3.2); Glucose 81 mg/dl (74-100); Total Protein,Serum 4.8 g/dl (6.3-8.2)
[2023-09-27 07:18] LABS: Hematocrit 25.5 % (42.0-52.0); Lymphocytes # 0.2 K/mm3 (0.7-4.5); Lymphocytes % 3.7 % (10-50); Mean Corpuscular HGB Conc 32.5 g/dL (31.8-35.4); Mean Corpuscular Hemoglobin 32.1 pg (27.0-31.2); Mean Corpuscular Volume 98.7 fl (80-94); Mean Platelet Volume 8.9 fl (7.4-10.4); Monocytes % 4.3 % (1.7-9.3); Neutrophils # 4.9 K/mm3 (1.8-7.8); Neutrophils % 91.9 % (37.0-80.0); Platelet Count 203 K/mm3 (142-424); Red Blood Count 2.58 M/mm3 (4.60-6.20); White Blood Count 5.3 K/mm3 (4.8-10.8)
[2023-09-27 07:21] LABS: Hemoglobin 8.3 g/dL (14.1-18.0); MANUAL DIFFERENTIAL MANUAL DIFFERENTIAL (MANUAL DIFF)
--- NOTE | 2023-09-27 07:55 | EXP.ANES.II ---
[facility] Anesthesia Record Part II Anesthesia Record Part II Discharge Time: 18:15 Destination: Medical Surgical Department PACU nurse assessment reviewed?: Yes Patient Condition:: Good Anesthesia Complications:: None Swallowing reflex intact?: Yes Airway Patency: Patent Cyanosis?: No Blood Pressure: 130/83 SaO2: 98 Respiratory Rate: 16 Pulse Rate: 82 Temperature: 97.0 F Mental Status: Alert & Oriented Pain level:: 0 Nausea and/or vomitting:: None Intake, IV Amount: 600 (+Hespan 500mL) Hydration: Adequate
[2023-09-27 08:07] LABS: Monocytes % 1 % (2-9); Neutrophils % 99 % (42-76); Total Cells Counted 100
[2023-09-27 08:08] LABS: Platelet Estimate Normal; RBC Morphology Normal
--- NOTE | 2023-09-27 08:46 | EXP.CARD.PN ---
Subjective Subjective Date: 09/27/23 Time: 08:30 Principal diagnosis: CAD s/p stenting, Left hip fracture Interval history: Status post left hip fracture repair. Morning labs reviewed. Patient remains in normal sinus rhythm. Exam Data for Last 24 hours Vital signs and Labs for Last 24 Hours: Temp Pulse Resp BP Pulse Ox O2 Del Method O2 Flow Rate 98.4 F 89 16 131/70 100 Nasal Cannula 1.5 09/27/23 07:41 09/27/23 07:41 09/27/23 07:56 09/27/23 07:41 09/27/23 07:41 09/27/23 08:40 09/27/23 08:40 Laboratory Results - last 24 hr 09/26/23 08:00: Total Counted 100, Neutrophils % (Manual) 94 H, Lymphocytes % (Manual) 5 L, Monocytes % (Manual) 1 L, Platelet Estimate Normal, RBC Morphology Normal, Sodium 129 L, Potassium 4.3, Chloride 100, Carbon Dioxide 26, Anion Gap 7.3, BUN 21 H, Creatinine 0.70, Estimated Creat Clear 44, Estimated GFR 109, Est GFR ( Amer) 131, Glucose 95, Calcium 8.3 L 09/26/23 14:30: Blood Type B Positive, Antibody Screen Negative, Crossmatch ([facility]) See Detail 09/27/23 06:10: WBC 5.3 D, RBC 2.58 L, Hgb 8.3 L D, Hct 25.5 L, MCV 98.7 H, MCH 32.1 H, MCHC 32.5, RDW 16.8, Plt Count 203, MPV 8.9, Neut % (Auto) 91.9 H, Lymph % (Auto) 3.7 L, [place] % (Auto) 4.3, Eos % (Auto) 0.0 L, Baso % (Auto) 0.0 L, Neut # (Auto) 4.9, Lymph # (Auto) 0.2 L, [place] # (Auto) 0.2, Eos # (Auto) 0.0, Baso # (Auto) 0.0, Total Counted 100, Neutrophils % (Manual) 99 H, Monocytes % (Manual) 1 L, Platelet Estimate Normal, RBC Morphology Normal, Sodium 130 L, Potassium 4.4, Chloride 106, Carbon Dioxide 20 L, Anion Gap 8.4, BUN 23 H, Creatinine 0.90 D, Estimated Creat Clear 44, Estimated GFR 81, Est GFR ( Amer) 98 D, Glucose 81, Calcium 7.7 L, Magnesium 2.0, Total Bilirubin 0.6, AST 27, ALT 19, Alkaline Phosphatase 107, Total Protein 4.8 L, Albumin 2.2 L, Globulin 2.6, Albumin/Globulin Ratio 0.8 L I & O for Last 24 hours: Intake & Output 09/24/23 09/25/23 09/26/23 09/27/23 23:59 23:59 23:59 23:59 Intake Total 1254 / 1254 2034.084 / 2154.084 720 / 838 718 / 718 Output Total 1575 / 1575 470 / 470 0 / 500 700 / 700 Balance -321 / -321 1564.084 / 1684.084 720 / 338 18 / 18 Weight 116 lb 14.402 oz 116 lb 14.402 oz 116 lb 14.402 oz 116 lb 14.402 oz Microbiology Reports for the Last 24 Hours: Microbiology 09/24/23 21:14 Sputum - Expectorated Sputum Sputum Culture - Final Klebsiella pneumoniae Constitutional Constitutional: no acute distress *Routine Respiratory Exam Respiratory: Present CTA bilaterally and symmetric chest movement *Routine Cardiovascular Exam Cardiovascular: Present RRR, Normal S1 and Normal S2 *Routine Abdominal Exam Abdominal: Present soft and normoactive bowel sounds; Absent tenderness *Routine Extremities Exam Extremities: Present edema and normal capillary refill *Routine Skin Exam Skin: Present intact, dry and warm Detailed Neck Exam: Thyroids Thyroid: Absent bruit Progress Note: A&P Assessment and plan (1) Hyponatremia: Status: Acute (2) Closed intertrochanteric fracture of left hip: Status: Acute (3) CAD (coronary artery disease): Status: Acute (4) Abnormal cardiovascular stress test: Status: Acute (5) Hard of hearing: Status: Acute (6) LOYD (renal artery stenosis): Status: Acute (7) Intermittent claudication: Status: Acute (8) Cigarette nicotine dependence: Status: Acute (9) Paroxysmal atrial fibrillation: Status: Acute Assessment and Plan Assessment and Plan for All Diagnoses:: This is a 78-year-old gentleman who presented outpatient for a left heart catheterization who underwent complex left main artery stenting into the LAD on 09/19/2023. Patient was kept overnight due to the complexity of the procedure and during overnight stay sustained a fall resulting in a left intertrochanteric hip fracture. S/p surgery 09/26/2023. Coronary artery disease Left heart catheterization 09/19/2023-severe distal left main disease with additional disease in the proximal LAD, MONICA to proximal left main artery. Continue aspirin 81 mg daily, Plavix 75 mg daily, atorvastatin 40 mg daily Echo July 2023 shows normal biventricular function, mild TR, mild PI, increased RVSP at 30-35 Fall Left hip fracture Surgical repair is pending Anemia Recommend to continue DAPT therapy due to recent stenting of the left main. Continue Protonix 40 mg twice daily Recommend keeping hemoglobin greater than 8 status post surgery, can transfuse as needed. Will defer to primary service Hyponatremia Concern for stress SIADH On a 1 liter fluid restriction Primary service is replacing with sodium chloride tablets 500 twice daily -sodium today 130 Will defer further management to primary service Questionable PAF Reported intermittent episodes of PAF throughout the evening last week, patient was started on amiodarone drip which was turned off yesterday. Currently receiving amiodarone 200 mg twice daily Rhythm strips reviewed and no A-fib noted Continue amiodarone 200 mg p.o. twice daily for now Patient remains in normal sinus rhythm. Recommend holding initiation of OAC at this time due to patient requiring DAPT therapy for recent stenting and the fact the patient has ongoing anemia. Recommend placing patient in a 2-week event monitor upon discharge home to further evaluate for presence of A-fib and initiating OAC if A-fib is detected. CV summary 09/27/2023: Patient is CV stable at this time. Cardiology will sign off. Please continue below listed medications and have patient discharged home with a 2-week event monitor to further evaluate for presence of A-fib. Patient will need to follow-up in cardiology clinic 1 to 2 weeks post discharge. Please continue below listed cardiac meds. CV meds Aspirin 81 mg daily Plavix 75 mg daily Atorvastatin 40 mg daily Protonix 40 mg p.o. twice daily Amiodarone 200 mg p.o. twice daily
--- NOTE | 2023-09-27 08:49 | SW/DCPLANNER ---
Addendum entered by Rossana Merino 09/28/23 12:21: Kala mckeon/ He has called back and stated they can accept this patient SNF level of care today. I have updated patient/family and MD. Addendum entered by Rossana Merino 09/28/23 11:14: I have attempted to call Kala mckeon/ He several times since paperwork has been faxed w/ no answer or call back. I did speak w/ patient's family regarding other facilities. Jaylen expressed an interest in [facility] and [facility]. Patient information has been faxed to Jess ([phone]) at [facility] and voicemail has been left for admissions at [facility]. I will continue to follow up w/ patient/family, facilities and MD. Patient is medically stable for discharge. Original Note: I spoke w/ patient's family member (Jaylen) regarding plans for patient once medically stable for discharge. PT/OT will evaluate patient this AM. Jaylen requested that patient information be faxed to [facility]. I spoke w/ Kala at [facility] and she does have a male bed available. Information has been faxed to Kala at this time ([phone]). I will continue to follow up. Discharge date is unknown at this time.
[2023-09-27] MEDS: POLYETHYLENE GLYCOL 3350 17 GM PACKET PO (08:52)
[2023-09-27] MEDS: ASPIRIN EC 81MG TABLET 81 MG PO ×2 (08:53→20:16)
[2023-09-27] MEDS: CLOPIDOGREL 75MG TAB 75 MG PO (08:53)
[2023-09-27] MEDS: SODIUM CHLORIDE 1,000MG TABLET 500 MG PO ×2 (08:53→20:15)
[2023-09-27] MEDS: AMIODARONE 200MG TABLET 200 MG PO ×2 (08:53→20:16)
[2023-09-27] MEDS: HYDROCODONE/APAP 5/325 MG TABLET 1 TAB PO (08:53)
[2023-09-27] MEDS: PANTOPRAZOLE 40MG TABLET 40 MG PO ×2 (09:10→20:16)
--- NOTE | 2023-09-27 10:14 | HMH.OTEV ---
OT Inpatient Evaluation Rehab OT IP Evaluation Start: 09/26/23 17:42 Freq: ONCE Status: Active Protocol: Document 09/27/23 10:06 [facility] (Rec: 09/27/23 10:14 [facility] [id number]) Rehab OT IP Assessment Subjective History Pt oriented to self. Pt very hard of hearing. Pt admitted on 09/19/23 due to CAD. While at hospital pt had a fall resulting in a hip fx. Pt required a Cephalomedullary nailing left proximal femur on 09/26/23. History and Physical: Mr. Sexton is an 78-year-old male with significant CAD and tobacco use history. He has been having angina and had an abnormal Myoview. Concern for CAD. Patient was brought in for elective left heart cath today due to his symptoms and risk factors. Left heart cath performed showing left main disease. Patient tolerated procedure well but given location of stent placement, patient's comorbidities, and contrast load, cardiology consulted medicine for admission and monitoring overnight with gentle hydration. Medicine agreed to admit for further management. Subjective I don't want to move. Pt unable to provide much of his previous level of functioning due to him being a poor historian. Pt claims normally he does live alone and is able to dress and feed himself. Pt claims he has a friend come in weekly to help bath him and complete other IADLs such as cleaning, cooking, etc. Pt is normally able to transfer independently using a rolling walker. Objective Patient Orientation Person Right Upper Extremity Gross ROM Min Limitation <25% Left Upper Extremity Gross ROM Min Limitation <25% Shoulder ROM Limitations Muscle Weakness Elbow ROM Limitations Muscle Weakness Wrist Limitations of Range of Motion Muscle Weakness Bed Mobility bed mobility-scooting,bed mobility - supine/sit,bed mobility - rolling Assist Level Maximum x 2 (75% assist) Rehab OT IP prob,goals,plan Problems Date of Evaluation: 09/27/23 OT IP Problems Bed Mobility,Transfers,Balance ,Self care,Safety Rehab Potential Rehab Potential Good Equipment Needs Assistive Devices Rolling / Wheeled Walker Plan OT intervention Plan Bed Mobility,Transfers,Balance ,Self care,Safety,Therapeutic Exercise OT Plan Frequency Daily Duration LOS Discharge Goals Bed Mobility Ability Assistance x1 Sit to Stand Chair Transfer Ability Moderate x 2 (50% assist), Maximum x 2 (75% assist) Chair Transfer Technique Stand Pivot Chair Transfer Assistive Devices Rolling Walker Self care skills dressing/undressing independently Feeding Ability Assist with Tray Set Up Lower Body Dressing Ability Moderate Assistance Upper Body Dressing Ability Minimal Assistance Bathing Ability Moderate Assistance Performing Toilet Hygiene Ability Moderate Assistance Overall Commode/Toilet Transfer Ability Moderate Assistance Commode/Toilet Transfer Technique Stand Pivot Commode/Toilet Transfer Assistive Raised Toilet Seat Devices Oral Care Assist Minimal Assistance Decrease in Endurance No Discharge Plan OT Discharge Plan Pt will continue to be seen for OT services while at [facility]. Pt would benefit most from short term rehab at [facility] following hospital stay. Continued skilled therapy is important in order for patient to improve strength, safety, endurance, ADL independence, and functional transfers to reach PLOF. Eval Complexity Eval Charge Codes 80645 - Moderate Complexity PHYSICIAN CERTIFICATION: I certify the specified therapy services for Jacob James are required, authorized, and reviewed every 30 days.
--- NOTE | 2023-09-27 10:56 | HMH.PTEV ---
Physical Therapy Evaluation Rehab PT IP Evaluation Start: 09/26/23 17:42 Freq: ONCE Status: Active Protocol: Document 09/27/23 10:52 [facility] (Rec: 09/27/23 10:56 [facility] [id number]) Subjective/History History History Pt oriented to self. Pt very hard of hearing. Pt admitted on 09/19/23 due to CAD. While at hospital pt had a fall resulting in a hip fx. Pt required a Cephalomedullary nailing left proximal femur on 09/26/23. History and Physical: Mr. Sexton is an 78-year-old male with significant CAD and tobacco use history. He has been having angina and had an abnormal Myoview. Concern for CAD. Patient was brought in for elective left heart cath today due to his symptoms and risk factors. Left heart cath performed showing left main disease. Patient tolerated procedure well but given location of stent placement, patient's comorbidities, and contrast load, cardiology consulted medicine for admission and monitoring overnight with gentle hydration. Medicine agreed to admit for further management. Subjective Subjective Pt reports he does not want to move at all, but does agree to limited mobility assessment with MAX encouragement. New diagnosis of cancer in past 12 No months? Rehab PT IP Eval Objective Appearance Patient Behavior Appropriate Patient Orientation Person,Place Difficulty following instructions mild Speech Pattern Clear Ambulation Patient Able to Ambulate No Balance Ability to Arise Unable Sitting Balance Leans or slides in chair Dynamic Sitting Balance Ability Poor Transfers Bed Transfer Ability Maximum x 2 (75% assist) MMT LLE PT MMT ABN Abnormal MMT Grade grosslu 2/5 Rehab PT IP prob,goals,plan Problems Date of Evaluation: 09/27/23 PT IP Problems Bed Mobility,Transfers,Gait Rehab Potential Rehab Potential Good Plan PT Intervention Plan Bed Mobility,Transfers,Gait, Therapeutic Exercise PT Plan Frequency BID Duration LOS Discharge Goals Bed Transfer Ability Moderate x 2 (50% assist) Sit to Stand Chair Transfer Ability Maximum x 2 (75% assist) Ambulation Assistive Device Rolling Walker Ambulation Distance (feet) 5 Discharge Plan PT Discharge Plan Pt is most appropriate for rehab placement once medically stable for d/c. Skilled therapy is needed to prevent further falls, injury, debility, or wounds and to aid return to prior level of function. Eval Complexity Eval Charge Codes 42349 - High Complexity PHYSICIAN CERTIFICATION: I certify the specified therapy services for Jacob Gomezker are required, authorized, and reviewed every 30 days.
--- NOTE | 2023-09-27 11:40 | P.PN_ITS ---
Subjective *Date: 09/27/23 *Time: 11:40 Interval history: Patient is doing relatively well today. He is oriented. He is appreciative for the surgery on his left hip. Says his left hip is feeling better. Ortho Exam (Inpt) Vital signs and Labs for Last 24 Hours: Temp Pulse Resp BP Pulse Ox O2 Del Method O2 Flow Rate 98.4 F 90 16 131/70 100 Nasal Cannula 1 09/27/23 07:41 09/27/23 08:00 09/27/23 07:56 09/27/23 07:41 09/27/23 07:41 09/27/23 10:40 09/27/23 10:40 Laboratory Results - last 24 hr 09/26/23 08:00: Total Counted 100, Neutrophils % (Manual) 94 H, Lymphocytes % (Manual) 5 L, Monocytes % (Manual) 1 L, Platelet Estimate Normal, RBC Morphology Normal 09/26/23 14:30: Blood Type B Positive, Antibody Screen Negative, Crossmatch ([facility]) See Detail 09/27/23 06:10: WBC 5.3 D, RBC 2.58 L, Hgb 8.3 L D, Hct 25.5 L, MCV 98.7 H, MCH 32.1 H, MCHC 32.5, RDW 16.8, Plt Count 203, MPV 8.9, Neut % (Auto) 91.9 H, Lymph % (Auto) 3.7 L, [place] % (Auto) 4.3, Eos % (Auto) 0.0 L, Baso % (Auto) 0.0 L, Neut # (Auto) 4.9, Lymph # (Auto) 0.2 L, [place] # (Auto) 0.2, Eos # (Auto) 0.0, Baso # (Auto) 0.0, Total Counted 100, Neutrophils % (Manual) 99 H, Monocytes % (Manual) 1 L, Platelet Estimate Normal, RBC Morphology Normal, Sodium 130 L, Potassium 4.4, Chloride 106, Carbon Dioxide 20 L, Anion Gap 8.4, BUN 23 H, Creatinine 0.90 D, Estimated Creat Clear 44, Estimated GFR 81, Est GFR ( Amer) 98 D, Glucose 81, Calcium 7.7 L, Magnesium 2.0, Total Bilirubin 0.6, AST 27, ALT 19, Alkaline Phosphatase 107, Total Protein 4.8 L, Albumin 2.2 L, Globulin 2.6, Albumin/Globulin Ratio 0.8 L I & O for Labs for Last 24 Hours: Intake & Output 09/24/23 09/25/23 09/26/23 09/27/23 23:59 23:59 23:59 23:59 Intake Total 1254 / 1254 2034.084 / 2154.084 720 / 838 838 / 838 Output Total 1575 / 1575 470 / 470 0 / 500 700 / 700 Balance -321 / -321 1564.084 / 1684.084 720 / 338 138 / 138 Weight 116 lb 14.402 oz 116 lb 14.402 oz 116 lb 14.402 oz 116 lb 14.402 oz Microbiology Reports for the Last 24 Hours: Microbiology 09/24/23 21:14 Sputum - Expectorated Sputum Sputum Culture - Final Klebsiella pneumoniae Additional findings:: Left hip: Surgical dressings in place. No drainage. Assessment and Plan *Assessment and plan (1) Closed intertrochanteric fracture of left hip: Problem Comment: Status post cephalomedullary nailing Status: Acute Qualifiers: Encounter type: initial encounter Fracture alignment: displaced Qualified Code(s): S72.142A - Displaced intertrochanteric fracture of left femur, initial encounter for closed fracture Category: Medical Code(s): S72.142A - Displaced intertrochanteric fracture of left femur, initial encounter for closed fracture Plan Overall patient is doing okay. He had surgery yesterday will expect some more acute blood loss anemia from the surgery. He has been really evaluated by physical therapy. Suggestion is for placement into intermediate rehab which I think is appropriate. Will monitor H&H for possible need of transfusion prior to transfer to rehabilitation. Weightbearing as pain allows left lower extremity.
[2023-09-27] MEDS: NICOTINE 21MG/24HR PATCH 21 MG TD (11:50)
--- NOTE | 2023-09-27 15:01 | PC.NURSE ---
Pt. is aox4, swelling noted in lower ext 2-3 + edema, fluid restriction of 1,000 ml, RA sats in the 90's, turn every 2 hours, pain meds given once on my shift.
--- NOTE | 2023-09-27 15:13 | EXP.ACUTE.PN ---
Subjective *Date: 09/27/23 *Time: 16:45 Interval history: Patient feeling better this morning. Alert and oriented. On room air on exam. Afebrile. States his legs feeling better since surgery. Ate breakfast. No acute complaints. Medical Exam Vital signs and Labs for Last 24 Hours: Vital Signs Temp Pulse Pulse Resp BP BP Pulse Ox 09/27/23 14:53 09/27/23 13:00 09/27/23 12:00 90 09/27/23 12:00 98.2 F 86 22 108/67 L 100 09/27/23 10:40 09/27/23 08:40 09/27/23 08:00 90 09/27/23 08:00 09/27/23 07:56 16 09/27/23 07:41 98.4 F 89 19 131/70 100 09/27/23 06:37 09/27/23 06:27 87 09/27/23 06:27 91 H 09/27/23 06:27 97 09/27/23 05:00 09/27/23 04:00 98.8 F 96 H 16 110/67 93 L 09/27/23 04:00 96 H 09/27/23 02:53 09/27/23 01:15 105 H 22 107/65 L 90 L 09/27/23 01:00 09/27/23 00:15 100.5 F H 106 H 21 106/64 L 92 L 09/27/23 00:01 103 H 09/27/23 00:01 103 H 09/27/23 00:00 103 H 09/26/23 23:15 98.6 F 98 H 20 108/66 L 92 L 09/26/23 23:00 09/26/23 22:15 97.4 F L 89 17 99/60 L 90 L 09/26/23 21:15 96.3 F L 85 16 91/57 L 91 L 09/26/23 21:00 09/26/23 20:45 82 15 104/65 L 95 09/26/23 20:15 95.6 F L 86 15 115/77 92 L 09/26/23 20:00 86 14 94 L 09/26/23 20:00 97 H 09/26/23 19:45 81 14 104/66 L 94 L 09/26/23 19:15 81 14 102/66 L 95 09/26/23 19:00 09/26/23 19:00 77 14 111/70 96 09/26/23 18:51 81 09/26/23 18:51 78 09/26/23 18:30 93.5 F L 84 16 113/72 96 09/26/23 18:30 93.5 F L 84 16 113/72 96 09/26/23 18:15 82 09/26/23 18:15 80 09/26/23 18:15 97.0 F L 82 16 130/83 98 09/26/23 18:05 97.0 F L 80 16 118/80 99 09/26/23 18:03 97.0 F L 81 14 120/77 09/26/23 17:55 97.0 F L 83 16 112/81 97 09/26/23 17:45 97.0 F L 87 16 120/77 93 L O2 Del Method O2 Flow Rate 09/27/23 14:53 Room Air 09/27/23 13:00 Room Air 09/27/23 12:00 09/27/23 12:00 Room Air 09/27/23 10:40 Nasal Cannula 1 09/27/23 08:40 Nasal Cannula 1.5 09/27/23 08:00 09/27/23 08:00 Nasal Cannula 2 09/27/23 07:56 09/27/23 07:41 Nasal Cannula 1.5 09/27/23 06:37 Nasal Cannula 1.5 09/27/23 06:27 09/27/23 06:27 09/27/23 06:27 Nasal Cannula 2 09/27/23 05:00 Nasal Cannula 2 09/27/23 04:00 Nasal Cannula 09/27/23 04:00 09/27/23 02:53 Nasal Cannula 2 09/27/23 01:15 Nasal Cannula 2 09/27/23 01:00 Nasal Cannula 2 09/27/23 00:15 Nasal Cannula 2 09/27/23 00:01 09/27/23 00:01 09/27/23 00:00 09/26/23 23:15 Nasal Cannula 2 09/26/23 23:00 Nasal Cannula 2 09/26/23 22:15 Nasal Cannula 2 09/26/23 21:15 Nasal Cannula 2 09/26/23 21:00 Nasal Cannula 2 09/26/23 20:45 Nasal Cannula 2 09/26/23 20:15 Nasal Cannula 2 09/26/23 20:00 Nasal Cannula 2 09/26/23 20:00 09/26/23 19:45 Room Air 09/26/23 19:15 Room Air 09/26/23 19:00 Room Air 09/26/23 19:00 Room Air 09/26/23 18:51 09/26/23 18:51 09/26/23 18:30 Room Air 09/26/23 18:30 Room Air 09/26/23 18:15 09/26/23 18:15 09/26/23 18:15 Nasal Cannula 4 09/26/23 18:05 Nasal Cannula 4 09/26/23 18:03 09/26/23 17:55 Nasal Cannula 6 09/26/23 17:45 Nasal Cannula 6 Intake and Output 09/26/23 09/27/23 09/27/23 23:59 07:59 15:59 Intake Total 600 / 838 718 / 1108 390 / 1108 Output Total 0 / 500 700 / 700 Balance 600 / 338 18 / 408 390 / 408 Intake: Intake, Oral Amount 110 / 500 390 / 500 Intake, Total IV Amount 600 / 608 608 / 608 Cefazolin Sodium 1 gm In 0.9 % 8 / 8 Sodium Chloride 50 ml @ 100 mls /hr IV Q6H [facility] Rx#:[id number] Output: Output, Urine Amount 0 / 500 700 / 700 Other: Number of Unmeasured Voids 0 0 Weight 53.025 kg Patient Weight 09/27/23 23:59 Weight 53.025 kg Laboratory Results - last 24 hr 09/26/23 14:30: Blood Type B Positive, Antibody Screen Negative, Crossmatch (AHG) See Detail 09/27/23 06:10: WBC 5.3 D, RBC 2.58 L, Hgb 8.3 L D, Hct 25.5 L, MCV 98.7 H, MCH 32.1 H, MCHC 32.5, RDW 16.8, Plt Count 203, MPV 8.9, Neut % (Auto) 91.9 H, Lymph % (Auto) 3.7 L, [place] % (Auto) 4.3, Eos % (Auto) 0.0 L, Baso % (Auto) 0.0 L, Neut # (Auto) 4.9, Lymph # (Auto) 0.2 L, [place] # (Auto) 0.2, Eos # (Auto) 0.0, Baso # (Auto) 0.0, Total Counted 100, Neutrophils % (Manual) 99 H, Monocytes % (Manual) 1 L, Platelet Estimate Normal, RBC Morphology Normal, Sodium 130 L, Potassium 4.4, Chloride 106, Carbon Dioxide 20 L, Anion Gap 8.4, BUN 23 H, Creatinine 0.90 D, Estimated Creat Clear 44, Estimated GFR 81, Est GFR ( Amer) 98 D, Glucose 81, Calcium 7.7 L, Magnesium 2.0, Total Bilirubin 0.6, AST 27, ALT 19, Alkaline Phosphatase 107, Total Protein 4.8 L, Albumin 2.2 L, Globulin 2.6, Albumin/Globulin Ratio 0.8 L I & O for Labs for Last 24 Hours: Intake & Output 09/24/23 09/25/23 09/26/23 09/27/23 23:59 23:59 23:59 23:59 Intake Total 1254 / 1254 2034.084 / 2154.084 720 / 838 1108 / 1108 Output Total 1575 / 1575 470 / 470 0 / 500 700 / 700 Balance -321 / -321 1564.084 / 1684.084 720 / 338 408 / 408 Weight 53.025 kg 53.025 kg 53.025 kg 53.025 kg Microbiology Reports for the Last 24 Hours: Microbiology 09/24/23 21:14 Sputum - Expectorated Sputum Gram Stain - Final 09/24/23 21:14 Sputum - Expectorated Sputum Sputum Culture - Final Klebsiella pneumoniae Constitutional: Present no acute distress, cachectic and chronically ill appearing Head: Present atraumatic and normocephalic ENT: Present normal exam Respiratory: Present normal respiratory effort; Absent rhonchi, wheezes or crackles Cardiac: Present Reg Rate and Rhythm GI: Present soft and normal bowel sounds; Absent distention or tenderness Extremities: Present normal inspection and tenderness (Mild over surgical incision) Comment:: 1+ edema to knees. Legs equal length. Skin: Present intact; Absent erythema Neuro: Present Grossly Intact, alert, awake, oriented x 3 and moves all extremities Assessment and Plan *Assessment and plan (1) Hyponatremia: Status: Acute Category: Medical Code(s): E87.1 - Hypo-osmolality and hyponatremia (2) Closed intertrochanteric fracture of left hip: Problem Comment: Status post cephalomedullary nailing Status: Acute Qualifiers: Encounter type: initial encounter Fracture alignment: displaced Qualified Code(s): S72.142A - Displaced intertrochanteric fracture of left femur, initial encounter for closed fracture Category: Medical Code(s): S72.142A - Displaced intertrochanteric fracture of left femur, initial encounter for closed fracture (3) CAD (coronary artery disease): Status: Acute Category: Medical Code(s): I25.10 - Atherosclerotic heart disease of [place] coronary artery without angina pectoris (4) Abnormal cardiovascular stress test: Status: Acute Category: Medical Code(s): R94.39 - Abnormal result of other cardiovascular function study (5) Hard of hearing: Status: Acute Category: Medical Code(s): H91.90 - Unspecified hearing loss, unspecified ear (6) LOYD (renal artery stenosis): Status: Acute Category: Medical Code(s): I70.1 - Atherosclerosis of renal artery (7) Intermittent claudication: Status: Acute Category: Medical Code(s): I73.9 - Peripheral vascular disease, unspecified (8) Cigarette nicotine dependence: Status: Acute Category: Social Hx Code(s): F17.210 - Nicotine dependence, cigarettes, uncomplicated (9) Paroxysmal atrial fibrillation: Status: Acute Category: Medical Code(s): I48.0 - Paroxysmal atrial fibrillation Plan 78-year-old male CAD. Presented for elective left heart cath due to angina. Status post stenting of left main artery. Was admitted for monitoring. Unfortunately fell when trying to get to the bathroom by himself and broke his left hip. Has also developed low sodium. Status post cephalomedullary nailing yesterday. Tolerated procedure well. Orthopedics and cardiology assisting with care. Case management assisting with referral to rehab. Continues to require inpatient management. Problems addressed as follows: Left hip fracture -Orthopedics consulted, discussed case today, patient tolerated procedure well. Okay for therapy and rehab placement. - Hydrocodone p.o. for pain as needed every 4 hours - PT/OT eval after surgery. S/p CAD stent Atrial fibrillation - Left heart cath performed. Patient has severe distal left main disease with additional disease in the proximal LAD. Successful stent to the proximal left main artery. Reduced to less than 10% with 1 stent. EF normal - Continue aspirin 81 mg daily, Lipitor 40 mg nightly, Plavix 75 mg daily - cardiology consulted and assisting with care, okay to proceed with surgery - ventriculogram with normal EF - Continue amiodarone 200 mg twice daily Hyponatremia -Concern for component of medication effect versus SIADH due to pain. Sodium 130 this morning. Chloride 106. Continue oral supplementation. Will fluid restrict to 1 L daily. -Repeat CBC, CMP, magnesium ordered for the morning. -Continue 500 mg sodium supplementation twice daily Anemia - hemoglobin 8.3 this morning, down from 9.8. No active signs of bleeding. Iron studies within normal limits. - Transfusion threshold hemoglobin less than 7. Tobacco use disorder: nicotine patch daily as needed COPD: DuoNebs scheduled every 6 hours. Chronic constipation: Continue docusate/senna nightly; no BM since admission. Will add MiraLAX BID, if no BM by evening, will give enema DNR regular diet
[2023-09-27] MEDS: SODIUM PHOS/BIPHOSPHATE FLEET 133ML ENEMA 133 ML RC (16:00)
[2023-09-27] MEDS: MELATONIN 5MG TABLET 10 MG PO (20:15)
[2023-09-27] MEDS: SENNOSIDES 8.6MG/DOCUSATE 50MG TABLET 1 TAB PO (20:15)
[2023-09-27] MEDS: TRAZODONE 50MG TABLET 100 MG PO (20:16)
[2023-09-27] MEDS: ATORVASTATIN 40MG TABLET 40 MG PO (20:16)
[2023-09-28] VITALS (9 sets, daily range): BP systolic 111–137; BP diastolic 62–84; PULSE 72–87; RESP 16–20; TEMP 36.4–36.9; O2SAT 81–100; BMI 18.3
--- NOTE | 2023-09-28 05:29 | PC.NURSE ---
Pt is alert and oriented x4 and currently tolerating RA well and sating is the mid to high 90s. Pt tolerated HS meds well, has rested well this shift and has had no complaints to note.
[2023-09-28] MEDS: IPRATROPIUM/ALBUTEROL 3 ML NEB IH ×2 (06:14→11:14)
[2023-09-28 06:27] LABS: Chloride 104 mmol/L (98-107); Potassium 4.3 mmoL/L (3.5-5.1); Sodium 129 mmol/L (136-145)
[2023-09-28 06:29] LABS: Alanine Aminotransferase 18 U/L (12-78); Aspartate Amino Transferase 40 U/L (17-59); Blood Urea Nitrogen 28 mg/dl (9-20); Creatinine Clearance Estimated 44 mL/min (50-200); Estimated Glomerular Filt Rate 93 ml/min (>60); GFR (African American) 113 ML/MIN (>60)
[2023-09-28 06:30] LABS: Albumin Level 2.4 g/dl (3.5-5.0); Albumin/Globulin Ratio 0.9 (1.1-1.8); Alkaline Phosphatase 131 U/L (38-126); Anion Gap 7.3 mEq/L (5-15); Bilirubin,Total 0.6 mg/dl (0.2-1.3); Calcium 7.8 mg/dl (8.4-10.2); Carbon Dioxide 22 mmol/L (22.0-30.0); Globulin 2.7 g/dL (1.3-3.2); Glucose 108 mg/dl (74-100); Total Protein,Serum 5.1 g/dl (6.3-8.2)
[2023-09-28 07:04] LABS: Basophils % 0.4 % (0.1-2.0); Eosinophils % 0.1 % (0.1-12.0); Hematocrit 27.8 % (42.0-52.0); Hemoglobin 8.4 g/dL (14.1-18.0); Lymphocytes # 0.3 K/mm3 (0.7-4.5); Lymphocytes % 4.8 % (10-50); Mean Corpuscular HGB Conc 30.3 g/dL (31.8-35.4); Mean Corpuscular Hemoglobin 32.4 pg (27.0-31.2); Mean Corpuscular Volume 106.6 fl (80-94); Mean Platelet Volume 8.8 fl (7.4-10.4); Monocytes # 0.2 K/mm3 (0.1-1.0); Monocytes % 3.7 % (1.7-9.3); Neutrophils # 5.5 K/mm3 (1.8-7.8); Neutrophils % 90.9 % (37.0-80.0); Platelet Count 195 K/mm3 (142-424); Red Blood Count 2.61 M/mm3 (4.60-6.20); Red Cell Distribution Width 16.7 % (11.5-17.5); White Blood Count 6.1 K/mm3 (4.8-10.8)
[2023-09-28 07:21] LABS: MANUAL DIFFERENTIAL MANUAL DIFFERENTIAL (MANUAL DIFF)
--- NOTE | 2023-09-28 08:09 | PC.NURSE ---
let the nurse know about low o2
--- NOTE | 2023-09-28 08:41 | PC.NURSE ---
Pt. is 100% on RA.
[2023-09-28] MEDS: ASPIRIN EC 81MG TABLET 81 MG PO (09:12)
[2023-09-28] MEDS: SODIUM CHLORIDE 1,000MG TABLET 500 MG PO (09:12)
[2023-09-28] MEDS: AMIODARONE 200MG TABLET 200 MG PO (09:12)
[2023-09-28] MEDS: PANTOPRAZOLE 40MG TABLET 40 MG PO (09:12)
[2023-09-28] MEDS: CLOPIDOGREL 75MG TAB 75 MG PO (09:12)
[2023-09-28] MEDS: HYDROCODONE/APAP 5/325 MG TABLET 1 TAB PO (09:12)
[2023-09-28 09:38] LABS: Lymphocytes % 6 % (10-50); Macrocytosis 2+; Monocytes % 2 % (2-9); Neutrophils % 92 % (42-76); Platelet Estimate Normal; Total Cells Counted 100
--- NOTE | 2023-09-28 11:20 | P.PN_ITS ---
Subjective Narrative: No overnight events. Patient states hip is improved from before surgery, but that transfers and positioning are painful. Denies Cp,SOB, paresthesias. Exam Data for Last 24 hours Vital signs and Labs for Last 24 Hours: Temp Pulse Resp BP Pulse Ox O2 Del Method O2 Flow Rate 97.6 F 80 17 137/84 100 Room Air 2 09/28/23 08:00 09/28/23 11:13 09/28/23 08:00 09/28/23 08:00 09/28/23 08:41 09/28/23 10:12 09/27/23 23:00 Laboratory Results - last 24 hr 09/28/23 05:41: WBC 6.1, RBC 2.61 L, Hgb 8.4 L, Hct 27.8 L, MCV 106.6 H, MCH 32.4 H, MCHC 30.3 L, RDW 16.7, Plt Count 195, MPV 8.8, Neut % (Auto) 90.9 H, Lymph % (Auto) 4.8 L, [place] % (Auto) 3.7, Eos % (Auto) 0.1, Baso % (Auto) 0.4, Neut # (Auto) 5.5, Lymph # (Auto) 0.3 L, [place] # (Auto) 0.2, Eos # (Auto) 0.0, Baso # (Auto) 0.0, Total Counted 100, Neutrophils % (Manual) 92 H, Lymphocytes % (Manual) 6 L, Monocytes % (Manual) 2, Platelet Estimate Normal, Macrocytosis 2+, Sodium 129 L, Potassium 4.3, Chloride 104, Carbon Dioxide 22, Anion Gap 7.3, BUN 28 H, Creatinine 0.80, Estimated Creat Clear 44, Estimated GFR 93, Est GFR ( Amer) 113, Glucose 108 H D, Calcium 7.8 L, Total Bilirubin 0.6, AST 40 D, ALT 18, Alkaline Phosphatase 131 H, Total Protein 5.1 L, Albumin 2.4 L, Globulin 2.7, Albumin/Globulin Ratio 0.9 L I & O for Last 24 hours: Intake & Output 09/25/23 09/26/23 09/27/23 09/28/23 23:59 23:59 23:59 23:59 Intake Total 2034.084 / 2154.084 720 / 838 1618 / 1618 Output Total 470 / 470 0 / 500 875 / 875 250 / 250 Balance 1564.084 / 1684.084 720 / 338 743 / 743 -250 / -250 Weight 53.025 kg 53.025 kg 53.025 kg 53.025 kg Microbiology Reports for the Last 24 Hours: Microbiology 09/24/23 21:14 Sputum - Expectorated Sputum Gram Stain - Final 09/24/23 21:14 Sputum - Expectorated Sputum Sputum Culture - Final Klebsiella pneumoniae Detailed Lower Extremity Exam Comments: Dressing C/D/I. Thigh SNT. Calves SNT. NVID with +2 DP, SILT at 1st DWS/PA, + motor EHL/FHL/GS/TA. Progress Note: A&P Assessment and plan (1) Hyponatremia: Status: Acute Assessment and plan: Patient stable orthopedically. Ice to hip PRN. Pain control. WBAT to LLE with ambulatory device. Continue with PT. (2) Closed intertrochanteric fracture of left hip: Problem details: Status post cephalomedullary nailing Status: Acute (3) CAD (coronary artery disease): Status: Acute (4) Abnormal cardiovascular stress test: Status: Acute (5) Hard of hearing: Status: Acute (6) LOYD (renal artery stenosis): Status: Acute (7) Intermittent claudication: Status: Acute (8) Cigarette nicotine dependence: Status: Acute (9) Paroxysmal atrial fibrillation: Status: Acute
--- NOTE | 2023-09-28 11:59 | P.DS_ITS ---
General Admission date:: 09/19/23 Discharge date: 09/28/23 HPI HPI HPI: Mr. James is an 78-year-old male with significant CAD and tobacco use history. He has been having angina and had an abnormal Myoview. Concern for CAD. Patient was brought in for elective left heart cath today due to his symptoms and risk factors. Left heart cath performed showing left main disease. Patient tolerated procedure well but given location of stent placement, patient's comorbidities, and contrast load, cardiology consulted medicine for admission and monitoring overnight with gentle hydration. Medicine agreed to admit for further management. Unfortunately patient suffered a fall during the hospitalization and suffered left hip pain x-rays revealed intertrochanteric hip fracture on the left. Orthopedics consulted regarding treatment options. Hospital Course Hospital Course Hospital Course: 78-year-old male CAD. Presented for elective left heart cath due to angina. Status post stenting of left main artery. Was admitted for monitoring. Unfortunately fell when trying to get to the bathroom by himself and broke his left hip. Low sodium delayed his surgery. His status post cephalomedullary nailing of his left hip on 09/25. Tolerated procedure well. Orthopedics and cardiology assisting with care during admission. Stable to discharge to rehab for further management. Problems addressed as follows: Left hip fracture -Patient fell while trying to get up to go to the bathroom after his left heart cath on the evening of admission. Due to low sodium, sodium was replaced and surgery was delayed. Fortunately able to proceed with cephalomedullary nailing of left hip on 09/25. Procedure tolerated well. Tolerating hydrocodone as needed for pain control. Therapy working with patient. Needs placement for rehab, has graciously been accepted by [facility]. Medication sent electronically to [facility]. Weightbearing as tolerated. Patient ambulated with walker prior to admission. S/p CAD stent Atrial fibrillation - Left heart cath performed day of admission. Patient has severe distal left main disease with additional disease in the proximal LAD. Successful stent to the proximal left main artery. Reduced to less than 10% with 1 stent. EF normal. Continue aspirin 81 mg daily, Lipitor 40 mg nightly, Plavix 75 mg daily. Cardiology assisted with care during admission. They were consulted prior to surgery, cleared for surgery. Plan to continue amiodarone 200 mg twice daily for his A-fib. Hyponatremia -Concern for component of medication effect versus SIADH due to pain. Sodium dropped into the mid 120s. Was treated with supplementation during admission. Improved with fluid restriction and treatment for his pain. Anticipate sodium will continue to improve with a regular diet (no sodium restriction), and limiting fluid to 1-1/2 L a day. Repeat labs in 1 week to monitor potassium, sodium, kidney function. No systemic symptoms from his hyponatremia. Anemia: hemoglobin 8.4 this morning, stable since surgery. No active signs of bleeding. Transfusion threshold with hemoglobin less than 7. Recommend repeat CBC in 1 week to monitor hemoglobin level. Iron studies were normal during admission. Tobacco use disorder: nicotine patch daily as needed COPD: DuoNebs as needed every 6 hours. Stable on room air during admission. Chronic constipation: Treated aggressively with docusate/senna and MiraLAX. Has had multiple bowel movements in the 24 hours prior to discharge. Bowels moving regularly at this time. Total time spent on discharge 35 minutes in counseling, documentation, chart review, and direct care with patient. Exam Data for Last 24 hours Vital signs and Labs for Last 24 Hours: Temp Pulse Resp BP Pulse Ox O2 Del Method O2 Flow Rate 98.0 F 80 20 111/62 100 Room Air 2 09/28/23 11:25 09/28/23 11:25 09/28/23 11:25 09/28/23 11:25 09/28/23 11:25 09/28/23 11:25 09/27/23 23:00 Laboratory Results - last 24 hr 09/28/23 05:41: WBC 6.1, RBC 2.61 L, Hgb 8.4 L, Hct 27.8 L, MCV 106.6 H, MCH 32.4 H, MCHC 30.3 L, RDW 16.7, Plt Count 195, MPV 8.8, Neut % (Auto) 90.9 H, Lymph % (Auto) 4.8 L, [place] % (Auto) 3.7, Eos % (Auto) 0.1, Baso % (Auto) 0.4, Neut # (Auto) 5.5, Lymph # (Auto) 0.3 L, [place] # (Auto) 0.2, Eos # (Auto) 0.0, Baso # (Auto) 0.0, Total Counted 100, Neutrophils % (Manual) 92 H, Lymphocytes % (Manual) 6 L, Monocytes % (Manual) 2, Platelet Estimate Normal, Macrocytosis 2+, Sodium 129 L, Potassium 4.3, Chloride 104, Carbon Dioxide 22, Anion Gap 7.3, BUN 28 H, Creatinine 0.80, Estimated Creat Clear 44, Estimated GFR 93, Est GFR ( Amer) 113, Glucose 108 H D, Calcium 7.8 L, Magnesium 2.0, Total Bilirubin 0.6, AST 40 D, ALT 18, Alkaline Phosphatase 131 H, Total Protein 5.1 L, Albumin 2.4 L, Globulin 2.7, Albumin/Globulin Ratio 0.9 L I & O for Last 24 hours: Intake & Output 09/25/23 09/26/23 09/27/23 09/28/23 23:59 23:59 23:59 23:59 Intake Total 2034.084 / 2154.084 720 / 838 1618 / 1618 Output Total 470 / 470 0 / 500 875 / 875 250 / 250 Balance 1564.084 / 1684.084 720 / 338 743 / 743 -250 / -250 Weight 53.025 kg 53.025 kg 53.025 kg 53.025 kg Microbiology Reports for the Last 24 Hours: Microbiology 09/24/23 21:14 Sputum - Expectorated Sputum Gram Stain - Final 09/24/23 21:14 Sputum - Expectorated Sputum Sputum Culture - Final Klebsiella pneumoniae Constitutional Constitutional: no acute distress, cachectic, chronically ill appearing and cooperative *Routine HEENT Exam Head: Present normocephalic Eye: Present EOMI and PERRL ENT: Present mucous membranes moist Comments: Bitemporal wasting *Routine Neck Exam Neck: Present supple; Absent lymphadenopathy *Routine Respiratory Exam Respiratory: Present CTA bilaterally; Absent rhonchi, wheezes or crackles *Routine Cardiovascular Exam Cardiovascular: Present RRR *Routine Abdominal Exam Abdominal: Present soft and normoactive bowel sounds; Absent tenderness *Routine Rectal Exam Patient deferred: visual exam *Routine Exam Patient deferred: penile exam *Routine Extremities Exam Extremities: Present edema (2+ to mid warner); Absent cyanosis or clubbing Comments: Surgical incision left hip clean dry and intact. Mild tenderness to palpation. *Routine Skin Exam Skin: Present intact and warm; Absent cyanosis or rash *Routine Neurological Exam Neurological: Present alert, oriented X3 and moving all extremities; Absent altered mental status Results Data Completed and Pending Labs on day of discharge: Labs from last 24 hours 09/28/23 05:41 WBC 6.1 RBC 2.61 L Hgb 8.4 L Hct 27.8 L MCV 106.6 H MCH 32.4 H MCHC 30.3 L RDW 16.7 Plt Count 195 MPV 8.8 Neut % (Auto) 90.9 H Lymph % (Auto) 4.8 L [place] % (Auto) 3.7 Eos % (Auto) 0.1 Baso % (Auto) 0.4 Neut # (Auto) 5.5 Lymph # (Auto) 0.3 L [place] # (Auto) 0.2 Eos # (Auto) 0.0 Baso # (Auto) 0.0 Total Counted 100 Neutrophils % (Manual) 92 H Lymphocytes % (Manual) 6 L Monocytes % (Manual) 2 Platelet Estimate Normal Macrocytosis 2+ Sodium 129 L Potassium 4.3 Chloride 104 Carbon Dioxide 22 Anion Gap 7.3 BUN 28 H Creatinine 0.80 Estimated Creat Clear 44 Estimated GFR 93 Est GFR ( Amer) 113 Glucose 108 H D Calcium 7.8 L Magnesium 2.0 Total Bilirubin 0.6 AST 40 D ALT 18 Alkaline Phosphatase 131 H Total Protein 5.1 L Albumin 2.4 L Globulin 2.7 Albumin/Globulin Ratio 0.9 L DS: Diagnosis Discharge Diagnosis (1) Hyponatremia: Status: Acute Code(s): E87.1 - Hypo-osmolality and hyponatremia (2) Closed intertrochanteric fracture of left hip: Status: Acute Code(s): S72.142A - Displaced intertrochanteric fracture of left femur, initial encounter for closed fracture Qualifiers: Encounter type: initial encounter Fracture alignment: displaced Qualified Code(s): S72.142A - Displaced intertrochanteric fracture of left femur, initial encounter for closed fracture Problem details: Status post cephalomedullary nailing (3) CAD (coronary artery disease): Status: Acute Code(s): I25.10 - Atherosclerotic heart disease of [place] coronary artery without angina pectoris (4) Abnormal cardiovascular stress test: Status: Acute Code(s): R94.39 - Abnormal result of other cardiovascular function study (5) Hard of hearing: Status: Acute Code(s): H91.90 - Unspecified hearing loss, unspecified ear (6) LOYD (renal artery stenosis): Status: Acute Code(s): I70.1 - Atherosclerosis of renal artery (7) Intermittent claudication: Status: Acute Code(s): I73.9 - Peripheral vascular disease, unspecified (8) Cigarette nicotine dependence: Status: Acute Code(s): F17.210 - Nicotine dependence, cigarettes, uncomplicated (9) Paroxysmal atrial fibrillation: Status: Acute Code(s): I48.0 - Paroxysmal atrial fibrillation Meds Home Medications and Allergies Home Medications Medication Instructions Recorded Confirmed Type comp.stocking,thigh,long,x-sml #12 ea 06/22/23 09/19/23 Rx aspirin 81 mg tablet,delayed 81 mg PO DAILY #30 tabs 08/15/23 09/19/23 Rx release (Adult Aspirin Regimen) sennosides 8.6 mg-docusate sodium 1 tab-cap PO HS 08/15/23 09/19/23 History 50 mg tablet clopidogrel 75 mg tablet (Plavix) 75 mg PO DAILY 30 days #30 tabs 09/19/23 Rx amiodarone 200 mg tablet 200 mg PO BID 30 days #60 tabs 09/28/23 Rx atorvastatin 40 mg tablet 40 mg PO HS 30 days #30 tabs 09/28/23 Rx clopidogrel 75 mg tablet 75 mg PO DAILY 30 days #30 tabs 09/28/23 Rx furosemide 20 mg tablet 20 mg PO DAILY 30 days #30 tabs 09/28/23 Rx hydrocodone 5 mg-acetaminophen 325 1 tab PO Q6HP PRN Moderate To 09/28/23 Rx mg tablet Severe Pain (4-10) 3 days #12 tabs ipratropium 0.5 mg-albuterol 3 mg 3 ml inhalation Q6HP PRN shortness 09/28/23 Rx (2.5 mg base)/3 mL nebulization of breath or wheezing 30 days #180 soln mL melatonin 5 mg tablet 10 mg (2 x 5 mg) PO HS 30 days #60 09/28/23 Rx tabs nicotine 21 mg/24 hr daily 21 mg transdermal DAILYP 28 days 09/28/23 Rx transdermal patch #28 ea pantoprazole 40 mg tablet,delayed 40 mg PO HS 30 days #30 tabs 09/28/23 Rx release New Prescriptions to Start Prescriptions: amiodaSergey Jewell atorvastatin Sergey Farah clopidogrel [Plavix] Howie Pendleton clopidogrel Gagan,Sergey furosemide Gagan,Sergey hydrocodone-acetaminophen Gagan,Sergey ipratropium-albuterol Gagan,Sergey melatonin Gagan,Sergey nicotine Gagan,Sergey pantoprazole Sergey Farah Allergies Allergy/AdvReac Type Severity Reaction Status Date / Time No Known Allergies Allergy Verified 09/26/23 15:22 Discharge Plan Disposition Patient Disposition: [facility] SNF Condition: Fair Discharge Order Discharge Orders: Discharge Order (Routine); Ordered 09/28/23 Ordered By: Sergey Farah Follow up Plan Follow up with: Shelton Mendez DO [Staff Physician] - Enter time for follow up Howie Pendleton MD [Staff Physician] - 09/28/23 10:45 am Prescriptions/Medication Reconciliation: New clopidogrel [Plavix] 75 mg Tablet 75 mg PO DAILY 30 Days Qty: 30 6RF atorvastatin 40 mg Tablet 40 mg PO HS 30 Days Qty: 30 0RF ipratropium-albuterol 0.5 mg-3 mg(2.5 mg base)/3 mL Solution For Nebulization 3 ml inhalation Q6HP PRN (Reason: shortness of breath or wheezing) 30 Days Qty: 180 0RF amiodarone 200 mg Tablet 200 mg PO BID 30 Days Qty: 60 0RF clopidogrel 75 mg Tablet 75 mg PO DAILY 30 Days Qty: 30 0RF nicotine 21 mg/24 hr Patch 24 Hour 21 mg transdermal DAILYP 28 Days Qty: 28 0RF melatonin 5 mg Tablet 10 mg PO HS 30 Days Qty: 60 0RF hydrocodone-acetaminophen 5-325 mg Tablet 1 tab PO Q6HP PRN (Reason: Moderate To Severe Pain (4-10)) 3 Days Qty: 12 0RF pantoprazole 40 mg Tablet,Delayed Release (Dr/Ec) 40 mg PO HS 30 Days Qty: 30 0RF Continued sennosides-docusate sodium 8.6-50 mg tablet 1 tab-cap PO HS aspirin [Adult Aspirin Regimen] 81 mg tablet,delayed release (DR/EC) 81 mg PO DAILY Qty: 30 2RF furosemide 20 mg tablet 20 mg PO DAILY 30 Days Qty: 30 0RF Discontinued albuterol sulfate 90 mcg/actuation HFA aerosol inhaler 2 puff INHALATION Q4HP Patient Comments: INHALE 2 PUFFS EVERY 4 TO 6 HOURS INTO THE LUNGS NEEDED FOR SHORTNESS OF BREATH OR FOR WHEEZE No Action (DME) comp.stocking,thigh,long,x-sml Misc See Rx Instructions .Route Qty: 12 0RF Rx Instructions: As directed Problem Reconciliation Problems Reviewed?: Yes Patient Discharge Instructions ACTIVITY: Continue current activity, Ambulate as tolerated and Up with assistance DIET: continue same diet Patient Instructions: DI for Cardiac Catheterization, DI for Hip Fracture, DI for Hip Replacement, How to Prevent Falls, DI for Surgical Site Infection, DI for Moderate Sedation, DI for Post-Surgical Bleeding, Posterior Hip Replacement Discharge Instructions Picture Guide Providers Primary Care Provider: Winter Ren Admit Provider: Sergey Farah Attending Provider: Sergey Farah
--- NOTE | 2023-09-28 14:01 | PC.NURSE ---
Report given to [facility] at [facility]. Ambulance called and stated they would be here around 16:00 to transfer the patient.
--- NOTE | 2023-09-28 16:04 | PC.NURSE ---
o2 low due to transferring pt from chair to bed. put o2 2L on pt when settled.
== END 2023-09-28 17:48 | DRG 322 ==
LOC: 2ND 11:57
PROVIDERS: Internal Medicine; Nurse Practitioner Family; Orthopaedic Surgery; Admitting Provider Internal Medicine Adolescent Medicine; PCP Nurse Practitioner; Visit Provider Internal Medicine Adolescent Medicine
PROC: 027034Z Dilation of Coronary Artery, One Artery with Drug-eluting Intraluminal Device, Percutaneous Approach (ICD-10-PCS; principal; 2023-09-19 09:15)
PROC: 0QH936Z Insertion of Intramedullary Internal Fixation Device into Left Femoral Shaft, Percutaneous Approach (ICD-10-PCS; CPT 27245; principal; 2023-09-26 14:30)
DX: I25.118 Atherosclerotic heart disease of native coronary artery with other forms of angina pectoris (principal); S72.142A Displaced intertrochanteric fracture of left femur, initial encounter for closed fracture; I45.2 Bifascicular block; R63.0 Anorexia; E87.1 Hypo-osmolality and hyponatremia; Z68.1 Body mass index [BMI] 19.9 or less, adult; R64 Cachexia; D62 Acute posthemorrhagic anemia; I77.1 Stricture of artery; I70.1 Atherosclerosis of renal artery; R26.2 Difficulty in walking, not elsewhere classified; I70.213 Atherosclerosis of native arteries of extremities with intermittent claudication, bilateral legs; H91.90 Unspecified hearing loss, unspecified ear; F17.210 Nicotine dependence, cigarettes, uncomplicated; Z86.79 Personal history of other diseases of the circulatory system; W07.XXXA Fall from chair, initial encounter; Y92.230 Patient room in hospital as the place of occurrence of the external cause; F10.90 Alcohol use, unspecified, uncomplicated; I48.0 Paroxysmal atrial fibrillation; Z79.899 Other long term (current) drug therapy; D64.89 Other specified anemias; K59.09 Other constipation
CPT/HCPCS: 27245; 36415; 36430; 73502; 73552; 76000; 80048; 80053; 80061; 81001; 82728; 83540; 83550; 83735; 84439; 84443; 85007; 85014; 85018; 85025; 85027; 85347; 85610; 86850; 87070; 87077; 87186; 87205; 92928; 93005; 93458; 94640; 97110; 97163; 97166; 97530; 99152; 99153; C1713; C1725; C1760; C1769; C1776; C1874; C1894; C9600; J0282; J0690; J1100; J1644; J2250; J2405; J3010; J7060; J7614; J7620; P9016; Q9967